=== PATIENT | female | born 1950 | race Caucasian/White ===

== ENCOUNTER → 2017-01-22 | Outpatient (REF) | payer MEDICARE, OTHER ==
[2017-01-22 13:19] LABS: ALBUMIN 4.1 GM/DL (3.2-5.2); ALBUMIN/GLOBULIN RATIO 1.37 (1.00-1.93); CALCIUM LEVEL 9.2 MG/DL (8.8-10.2); CREATININE FOR GFR 0.99 MG/DL (0.55-1.02); GLOMERULAR FILTRATION RATE 59.7 (>45); POTASSIUM SERUM 4.4 MEQ/L (3.5-5.1); TOTAL PROTEIN 7.1 GM/DL (6.4-8.2)
== END ==
LOC: M SFHCPLAZ 11:17
PROVIDERS: ATTEND Family Medicine
DX: E55.9 Vitamin D deficiency, unspecified (principal); R73.01 Impaired fasting glucose; E78.5 Hyperlipidemia, unspecified

== ENCOUNTER → 2017-02-03 | Outpatient (CLI) | payer MEDICARE, OTHER ==
--- NOTE | 2017-02-05 06:00 | SLEEPHOME ---
DATE OF PROCEDURE: 02/03/2017 ORDERED BY: Nazario Mccormick MD Diagnostic home sleep testing was performed due to concern for the obstructive sleep apnea syndrome. 10 hours and 59 minutes of data were reviewed. There were 9 hours and 58 minutes were marked as time in bed. During the interval marked time in bed, there were 33 respiratory events identified of 10 seconds in duration or greater for a respiratory event index of 3.3. The events were primarily obstructive, but mixed and central apneas were also identified. Baseline heart rate 64 beats per minute. Pulse rate ranged 55-100. Baseline saturation 92%, lowest oxygen saturation 88%. Testing was performed in both the supine and non-supine positions. Respiratory events were much more commonly seen in the supine posture. IMPRESSION: Mildly abnormal home sleep testing with repetitive respiratory events, oxygen saturations to 88% and a respiratory event index of 3.3 is suggestive of obstructive sleep apnea syndrome. RECOMMENDATION: The frequency of events is not high and the events are associated with the supine posture. Therefore, sleep position retraining for avoidance of the supine posture is recommended. If the patient's symptoms persist, repeat testing has been shown more sensitive to identify mild disease and in laboratory nocturnal polysomnography is certainly more sensitive.
== END ==
LOC: M SLEEP HO 10:39
PROVIDERS: ATTEND Family Medicine
DX: G47.33 Obstructive sleep apnea (adult) (pediatric) (principal)

== ENCOUNTER → 2017-03-26 | Outpatient (CLI) | payer MEDICARE, OTHER ==
--- NOTE | 2017-03-29 08:25 | SLEEPCENT ---
DATE OF PROCEDURE: 03/26/2017 REQUESTING PROVIDER: Shalini Chung NP INTERPRETATION: Nocturnal polysomnography was performed for evaluation of sleep physiology in this patient with a history of excessive somnolence and nonrestorative sleep who had undergone home testing with equivocal results. 8 hours and 4 minutes of data were reviewed. There were 364 minutes of sleep identified. Sleep latency was prolonged at 34 minutes. Rapid eye movement (REM) latency was prolonged at 110 minutes. Sleep architecture was somewhat fragmented. There were two REM periods appreciated. Periods of wake through the night resulted in a reduced sleep efficiency at 76.9%. Electrocardiogram (EKG) showed a sinus rhythm with an average heart rate of 65 beats per minute. Electroencephalogram (EEG) showed essentially normal waveforms for awake and sleep stages. There were only 14 respiratory events identified of 10 seconds in duration or greater for an apnea-hypopnea index of 2.3. The events were hypopneic and associated with the supine posture. There was some snoring noted. Respiratory related arousals occurred only 1.3 times per hour when arousals from snoring were included. There was some limb activity identified. Three trains of 30 events were seen, but arousal index from limbs was 4.1 per hour. IMPRESSION: Mild periodic limb movement disorder (G47.61). Index of 4.1. RECOMMENDATIONS: On review of the patient's study, the most significant disruptor of sleep appeared to be her limb activity. Therefore, interventions to reduce the frequency of arousals from limb activity should improve the quality of the patient's sleep.
== END ==
LOC: M SLEEP 19:20
PROVIDERS: ATTEND Nurse Practitioner Adult Health
DX: G47.30 Sleep apnea, unspecified (principal)

== ENCOUNTER → 2017-05-26 | Outpatient (CLI) | payer MEDICARE, OTHER ==
--- NOTE | 2017-05-26 13:23 | REPMRS ---
Patient History The patient states she has not had a clinical breast exam in over a year. Patient is postmenopausal. No known family history of cancer. Took estrogen for 10 years. Digital Woman Screen Mammo: May 26, 2017 - Exam #: [id number] Bilateral CC and MLO view(s) were taken. Technologist: Alma Delia Araujo, Technologist Prior study comparison: June 04, 2016, digital woman screen mammo performed at [facility]. May 21, 2015, digital woman screen mammo performed at [facility]. April 18, 2014, digital woman screen mammo performed at [facility]. FINDINGS: There are scattered fibroglandular densities. There has been no change in the appearance of the mammogram from the prior studies. There is a mild amount of scattered fibroglandular density which is fairly symmetric. There is no interval development of dominant mass, architectural distortion, or clustered microcalcification suggestive of malignancy. ASSESSMENT: BI-RADS/ACR category 1 mammogram. Negative. Recommendation Routine screening mammogram in 1 year (for women over age 40). This mammogram was interpreted with the aid of an FDA-approved computer-aided dectection system. Electronically Signed By: Joshua Agee MD 05/26/17 [id number]
== END ==
LOC: M WHC 11:03
PROVIDERS: ATTEND Family Medicine
DX: Z12.31 Encounter for screening mammogram for malignant neoplasm of breast (principal)

== ENCOUNTER → 2017-06-29 | Outpatient (REF) | payer MEDICARE, OTHER ==
[2017-06-29 12:38] LABS: BASO % 0.5 % (0.0-1.0); EOS # 0.1 K/mm3 (0.0-0.50); EOS % 1.7 % (0.0-3.0); LARGE UNSTAINED CELL # 0.1 K/mm3 (0.0-0.4); LARGE UNSTAINED CELL % 1.7 % (0.0-4.0); LYMPH # 1.3 K/mm3 (1.5-4.5); LYMPH % 26.1 % (24.0-44.0); MEAN CORPUSCULAR HEMOGLOBIN 32.7 pg (27.0-33.0); MEAN CORPUSCULAR VOLUME 93.3 fl (80.0-96.0); MONO # 0.2 K/mm3 (0.0-0.8); MONO % 4.7 % (0.0-5.0); NEUTROPHILS # 3.1 K/mm3 (1.8-7.7); NEUTROPHILS % 65.2 % (36.0-66.0); PLATELET COUNT, AUTOMATED 207 k/mm3 (150-450); RED CELL DISTRIBUTION WIDTH 12.4 % (11.5-14.5); WHITE BLOOD COUNT 4.8 K/mm3 (4.0-10.0)
[2017-06-29 13:23] LABS: ALBUMIN 4.3 GM/DL (3.2-5.2); ALBUMIN/GLOBULIN RATIO 1.48 (1.00-1.93); ALKALINE PHOSPHATASE 82 U/L (45-117); ALT/SGPT 37 U/L (12-78); ANION GAP 9 MEQ/L (8-16); AST/SGOT 19 U/L (15-37); BILIRUBIN,TOTAL 1.1 MG/DL (0.2-1.0); BLOOD UREA NITROGEN 15 MG/DL (7-18); CALCIUM LEVEL 8.6 MG/DL (8.8-10.2); CARBON DIOXIDE LEVEL 29 MEQ/L (21-32); CHLORIDE LEVEL 103 MEQ/L (98-107); CREATININE FOR GFR 0.87 MG/DL (0.55-1.02); FERRITIN 40 NG/ML (8-252); FREE T4 0.99 NG/DL (0.76-1.46); GLOMERULAR FILTRATION RATE > 60.0 (>45); GLUCOSE, FASTING 94 MG/DL (80-110); PERCENT SATURATION 22.4 % (13.2-45.0); POTASSIUM SERUM 4.3 MEQ/L (3.5-5.1); SODIUM LEVEL 141 MEQ/L (136-145); TOTAL IRON BINDING CAPACITY 392 UG/DL (250-450); TOTAL PROTEIN 7.2 GM/DL (6.4-8.2)
[2017-06-29 14:08] LABS: VITAMIN B12 LEVEL 711 PG/ML (247-911)
== END ==
LOC: M SFHCPLAZ 11:00
PROVIDERS: ATTEND Family Medicine
DX: N18.3 Chronic kidney disease, stage 3 (moderate) (principal); R73.01 Impaired fasting glucose; E04.2 Nontoxic multinodular goiter

== ENCOUNTER → 2017-12-02 | Outpatient (REF) | payer MEDICARE, OTHER ==
[2017-12-02 13:55] LABS: ALBUMIN 4.3 GM/DL (3.2-5.2); ALBUMIN/GLOBULIN RATIO 1.59 (1.00-1.93); ALKALINE PHOSPHATASE 78 U/L (45-117); ALT/SGPT 30 U/L (12-78); ANION GAP 6 MEQ/L (8-16); AST/SGOT 19 U/L (7-37); BILIRUBIN,TOTAL 0.8 MG/DL (0.2-1.0); BLOOD UREA NITROGEN 13 MG/DL (7-18); CARBON DIOXIDE LEVEL 31 MEQ/L (21-32); CHLORIDE LEVEL 104 MEQ/L (98-107); CHOLESTEROL LEVEL 103 MG/DL (<200); CHOLESTEROL RISK RATIO 1.872 (<5); CPK CREATINE PHOSPHOKINASE 147 U/L (26-192); CREATININE FOR GFR 0.83 MG/DL (0.55-1.02); GLOMERULAR FILTRATION RATE > 60.0 (>45); GLUCOSE, FASTING 91 MG/DL (70-100); HDL CHOLESTEROL 55 MG/DL (>40); LDL CHOLESTEROL 31.2 MG/DL (<100); NON-HDL-C 48 MG/DL; POTASSIUM SERUM 4.4 MEQ/L (3.5-5.1); SODIUM LEVEL 141 MEQ/L (136-145); TRIGLYCERIDES LEVEL 84 MG/DL (<150)
[2017-12-02 13:56] LABS: C REACTIVE PROTEIN QUANTITATIV < 0.30 MG/DL (0.00-0.30)
[2017-12-02 14:15] LABS: ESTIMATED AVERAGE GLUCOSE 120 MG/DL (60-110); HEMOGLOBIN A1c 5.8 %
[2017-12-02 15:13] LABS: APPEARANCE, URINE CLEAR (CLEAR); BACTERIA, URINE AUTO NEGATIVE (NEGATIVE); BILIRUBIN, URINE AUTO NEGATIVE (NEGATIVE); BLOOD, URINE BLOOD NEGATIVE (NEGATIVE); COLOR, URINE YELLOW (YELLOW); GLUCOSE, URINE (UA) AUTO NEGATIVE (NEGATIVE); KETONE, URINE AUTO NEGATIVE (NEGATIVE); LEUKOCYTE ESTERASE, URINE AUTO NEGATIVE (NEGATIVE); MALB URINE SIEMENS 5.8 MG/L; MAU/CREAT RATIO 4.7 MCG/MG (0.0-30.0); NITRITE, URINE AUTO NEGATIVE (NEGATIVE); PROTEIN, URINE AUTO NEGATIVE (NEGATIVE); RBC, URINE AUTO 3 /HPF (0-3); SPECIFIC GRAVITY URINE AUTO 1.015 (1.002-1.035); SQUAMOUS EPITHELIAL CELL UR AU 0 /HPF (0-6); UROBILINOGEN, URINE AUTO 0.2 mg/dL (0.0-2.0); WBC, URINE AUTO 1 /HPF (0-3)
== END ==
LOC: M SFHCADAM 11:03
DX: E78.5 Hyperlipidemia, unspecified (principal); R73.01 Impaired fasting glucose
CPT/HCPCS: 82550

== ENCOUNTER → 2018-04-30 | Outpatient (REF) | payer MEDICARE, OTHER ==
[2018-04-30 14:25] LABS: ESTIMATED AVERAGE GLUCOSE 120 MG/DL (60-110); HEMOGLOBIN A1c 5.8 %
[2018-04-30 14:31] LABS: ALBUMIN 4.1 GM/DL (3.2-5.2); ALBUMIN/GLOBULIN RATIO 1.28 (1.00-1.93); ALKALINE PHOSPHATASE 74 U/L (45-117); ALT/SGPT 35 U/L (12-78); ANION GAP 9 MEQ/L (8-16); AST/SGOT 20 U/L (7-37); BILIRUBIN,TOTAL 1.1 MG/DL (0.2-1.0); BLOOD UREA NITROGEN 15 MG/DL (7-18); CALCIUM LEVEL 8.7 MG/DL (8.8-10.2); CARBON DIOXIDE LEVEL 29 MEQ/L (21-32); CHLORIDE LEVEL 105 MEQ/L (98-107); CREATININE FOR GFR 0.92 MG/DL (0.55-1.30); GLOMERULAR FILTRATION RATE > 60.0 (>45); GLUCOSE, FASTING 93 MG/DL (70-100); POTASSIUM SERUM 4.2 MEQ/L (3.5-5.1); PTH INTACT 41.2 PG/ML (18.5-88.0); SODIUM LEVEL 143 MEQ/L (136-145); TOTAL 25(OH) VITAMIN D 30.9 NG/ML (30.0-100.0); TOTAL PROTEIN 7.3 GM/DL (6.4-8.2)
[2018-04-30 15:31] LABS: BASO % 0.7 % (0.0-1.0); EOS # 0.1 10^3/uL (0.0-0.50); EOS % 3.2 % (0.0-3.0); HEMATOCRIT 39.4 % (36.0-47.0); HEMOGLOBIN 13.6 g/dl (12.0-15.5); LYMPH # 1.4 10^3/uL (1.5-4.5); LYMPH % 31.9 % (24.0-44.0); MEAN CORPUSCULAR HEMOGLOBIN 31.8 pg (27.0-33.0); MEAN CORPUSCULAR HGB CONC 34.5 g/dl (32.0-36.5); MEAN CORPUSCULAR VOLUME 92.1 fl (80.0-96.0); MONO # 0.3 10^3/uL (0.0-0.8); MONO % 6.7 % (0.0-5.0); NEUTROPHILS # 2.5 10^3/uL (1.8-7.7); NEUTROPHILS % 57.5 % (36.0-66.0); PLATELET COUNT, AUTOMATED 202 10^3/uL (150-450); RED BLOOD COUNT 4.28 10^6/uL (4.00-5.40); WHITE BLOOD COUNT 4.3 10^3/uL (4.0-10.0)
[2018-05-01 15:28] LABS: INSULIN LEVEL 12.6 uIU/mL (2.6-24.9)
== END ==
LOC: M LABDRWAD 13:36
DX: N18.3 Chronic kidney disease, stage 3 (moderate) (principal); R73.01 Impaired fasting glucose
CPT/HCPCS: 83525

== ENCOUNTER → 2018-05-14 | Outpatient (CLI) | payer MEDICARE, OTHER ==
[~2018-05-14] MED LIST: ISOVUE-370 76% 100ML VIAL (Q9967) As Ordered
== END ==
LOC: M RAD 15:35
DX: E04.2 Nontoxic multinodular goiter (principal); R68.89 Other general symptoms and signs
CPT/HCPCS: Q9967

== ENCOUNTER → 2018-05-27 | Outpatient (CLI) | payer MEDICARE, OTHER ==
[~2018-05-27] MED LIST changes: +E-Z-GAS II EFFERVESCENT PACKET (SODIUM BICARB./CITRIC ACID/SIMETHICONE) As Ordered; +E-Z-HD 98% w/w 340GM SUSP BTL As Ordered; +E-Z-PAQUE 96% w/w SUSP 176GM BTL As Ordered; -ISOVUE-370 76% 100ML VIAL (Q9967) As Ordered
== END ==
LOC: M RAD 07:28
DX: R68.89 Other general symptoms and signs (principal); K44.9 Diaphragmatic hernia without obstruction or gangrene; K21.9 Gastro-esophageal reflux disease without esophagitis
CPT/HCPCS: 74241

== ENCOUNTER → 2018-05-31 | Outpatient (CLI) | payer MEDICARE, OTHER | LOC: M WHC 14:52 | DX: Z12.31 Encounter for screening mammogram for malignant neoplasm of breast (principal) | CPT/HCPCS: 77067 ==

== ENCOUNTER → 2018-09-20 | Outpatient (REF) | payer MEDICARE, OTHER ==
[2018-09-20 14:41] LABS: ALBUMIN/GLOBULIN RATIO 1.25 (1.00-1.93); ALKALINE PHOSPHATASE 86 U/L (45-117); ALT/SGPT 34 U/L (12-78); ANION GAP 11 MEQ/L (8-16); AST/SGOT 21 U/L (7-37); BLOOD UREA NITROGEN 12 MG/DL (7-18); CALCIUM LEVEL 8.8 MG/DL (8.8-10.2); CARBON DIOXIDE LEVEL 25 MEQ/L (21-32); CHLORIDE LEVEL 104 MEQ/L (98-107); CREATININE FOR GFR 1.01 MG/DL (0.55-1.30); GLUCOSE, FASTING 94 MG/DL (70-100); IMMUNOGLOBULIN E 19.2 IU/ML (<100); POTASSIUM SERUM 4.1 MEQ/L (3.5-5.1); SODIUM LEVEL 140 MEQ/L (136-145); TOTAL PROTEIN 7.2 GM/DL (6.4-8.2)
[2018-09-20 15:03] LABS: ESTIMATED AVERAGE GLUCOSE 117 MG/DL (60-110); HEMOGLOBIN A1c 5.7 %
[2018-09-23 14:22] LABS: INSULIN LEVEL 14.2 uIU/mL (2.6-24.9)
[2018-09-23 14:22] LABS: D001-IgE D pteronyssinus <0.10 kU/L (Class 0); E001-IgE Cat Epith/Dander < 0.10 kU/L (Class 0); E005-IgE Dog Dander < 0.10 kU/L (Class 0); G002-IgE Bermuda Grass < 0.10 kU/L (Class 0); G008-IgE Kentucky Bluegrass < 0.10 kU/L (Class 0); M001-IgE Penicillium chrysogen < 0.10 kU/L (Class 0); M002 IgE Cladosporium herbaru < 0.10 kU/L (Class 0); M003 IgE Aspergillus fumigatu < 0.10 kU/L (Class 0); M006-IgE Alternaria alternata < 0.10 kU/L (Class 0); T001-IgE Maple/Box Elder < 0.10 kU/L (Class 0); T003-IgE Common Silver Birch < 0.10 kU/L (Class 0); T006-IgE Cedar, Mountain < 0.10 kU/L (Class 0); T007-IgE Oak, White < 0.10 kU/L (Class 0); T008-IgE Elm, American < 0.10 kU/L (Class 0); T015-IgE Ash, White < 0.10 kU/L (Class 0); T041-IgE Hickory, White < 0.10 kU/L (Class 0); T070-IgE White Mulberry < 0.10 kU/L (Class 0); W001-IgE Ragweed, Short < 0.10 kU/L (Class 0); W009-IgE Plantain, English < 0.10 kU/L (Class 0); W014-IgE Pigweed, Rough < 0.10 kU/L (Class 0); W018-IgE Sheep Sorrel < 0.10 kU/L (Class 0)
== END ==
LOC: M SFHCADAM 09:41
DX: R73.01 Impaired fasting glucose (principal); R68.89 Other general symptoms and signs; R53.82 Chronic fatigue, unspecified; G47.61 Periodic limb movement disorder; L57.0 Actinic keratosis; N18.3 Chronic kidney disease, stage 3 (moderate); K21.9 Gastro-esophageal reflux disease without esophagitis; I25.10 Atherosclerotic heart disease of native coronary artery without angina pectoris; E78.5 Hyperlipidemia, unspecified; E42 Marasmic kwashiorkor; F32.9 Major depressive disorder, single episode, unspecified; L30.9 Dermatitis, unspecified; E55.9 Vitamin D deficiency, unspecified; E66.3 Overweight; Z91.09 Other allergy status, other than to drugs and biological substances; Z23 Encounter for immunization
CPT/HCPCS: 82785

== ENCOUNTER → 2018-12-16 | Outpatient (REF) | payer MEDICARE, OTHER ==
[2018-12-16 20:04] LABS: BASO % 0.4 % (0.0-1.0); EOS # 0.1 10^3/uL (0.0-0.50); EOS % 2.4 % (0.0-3.0); HEMATOCRIT 40.9 % (36.0-47.0); HEMOGLOBIN 13.6 g/dl (12.0-15.5); LYMPH # 1.5 10^3/uL (1.5-4.5); LYMPH % 30.3 % (24.0-44.0); MEAN CORPUSCULAR HEMOGLOBIN 31.3 pg (27.0-33.0); MEAN CORPUSCULAR HGB CONC 33.3 g/dl (32.0-36.5); MONO # 0.4 10^3/uL (0.0-0.8); MONO % 7.8 % (0.0-5.0); NEUTROPHILS % 58.9 % (36.0-66.0); PLATELET COUNT, AUTOMATED 208 10^3/uL (150-450); RED BLOOD COUNT 4.35 10^6/uL (4.00-5.40)
[2018-12-16 20:17] LABS: FREE T4 0.86 NG/DL (0.76-1.46); THYROID STIMULATING HORMONE 1.97 uIU/ML (0.358-3.740)
== END ==
LOC: M SFHCADAM 11:12
PROVIDERS: ATTEND Family Medicine
DX: I25.10 Atherosclerotic heart disease of native coronary artery without angina pectoris (principal); F32.9 Major depressive disorder, single episode, unspecified
CPT/HCPCS: 84439; 84443; 85025; G0463

== ENCOUNTER → 2019-01-17 | Outpatient (CLI) | payer MEDICARE, OTHER ==
--- NOTE | 2019-01-17 13:03 | REP ---
Bladder ultrasound including pre and post void bladder volumes: The pre void bladder volume is 273 ml. The postvoid bladder volume is zero. Post void residual is 0%. No bladder wall polyps or masses are identified. Impression: Essentially negative bladder ultrasound. Electronically Signed by John You MD 01/17/2019 12:55 P
== END ==
LOC: M RAD 12:04
PROVIDERS: ATTEND Family Medicine
DX: R32 Unspecified urinary incontinence (principal)

== ENCOUNTER → 2019-02-21 | Outpatient (REF) | payer MEDICARE, OTHER ==
[~2019-02-21] MED LIST changes: +ASPI81TA85 PO; +CALCTAB38 PO; -E-Z-GAS II EFFERVESCENT PACKET (SODIUM BICARB./CITRIC ACID/SIMETHICONE) As Ordered; -E-Z-HD 98% w/w 340GM SUSP BTL As Ordered; -E-Z-PAQUE 96% w/w SUSP 176GM BTL As Ordered; +LIPI20TA PO; +MIRA0.254 PO; +MULTCAP PO; +PROTPAK PO; +PROZ40CA PO
[2019-02-21 20:42] LABS: ALBUMIN 4.4 GM/DL (3.2-5.2); ALT/SGPT 35 U/L (12-78); BILIRUBIN,TOTAL 1.1 MG/DL (0.2-1.0); BLOOD UREA NITROGEN 16 MG/DL (7-18); CALCIUM LEVEL 9.3 MG/DL (8.8-10.2); CARBON DIOXIDE LEVEL 28 MEQ/L (21-32); CHLORIDE LEVEL 104 MEQ/L (98-107); CREATININE FOR GFR 0.97 MG/DL (0.55-1.30); GLOMERULAR FILTRATION RATE > 60.0 (>45); GLUCOSE, FASTING 90 MG/DL (70-100); POTASSIUM SERUM 4.8 MEQ/L (3.5-5.1); SODIUM LEVEL 138 MEQ/L (136-145); TOTAL PROTEIN 7.1 GM/DL (6.4-8.2)
== END ==
LOC: M SFHCADAM 13:28
PROVIDERS: ATTEND Family Medicine
DX: Z01.810 Encounter for preprocedural cardiovascular examination (principal); K21.9 Gastro-esophageal reflux disease without esophagitis
CPT/HCPCS: 80053; 93005; G0463

== ENCOUNTER 2019-03-02 09:14 | Day surgery (SDC) | payer MEDICARE, OTHER ==
[~2019-03-02] VITALS: Ht 170.2 cm; Wt 83.9 kg
[~2019-03-02 09:14] MED LIST changes: +LIDOCAINE 2% INJ 100 MG/5 ML SDV (FOR ANES.) As Ordered ONE; +NS 1,000 ML IV ONE; +PROPOFOL 200 MG/20 ML VIAL As Ordered ONE
[2019-03-02] MEDS ORDERED: PROPOFOL 200 MG/20 ML VIAL As Ordered ONE ×2 (09:36→11:33)
--- NOTE | 2019-03-02 11:56 | ROOR ---
Patient Name: Whitney Rizvi Procedure Date: 03/02/2019 11:07 AM Date of : 1950 Age: 68 Room: [facility] Gender: Female Note Status: Finalized Procedure: Upper GI endoscopy Indications: Heartburn Providers: Umesh Fregoso MD Referring MD: Merissa FUNK DO Requesting Provider: Medicines: Monitored Anesthesia Care Complications: No immediate complications. Procedure: Pre-Anesthesia Assessment: - Prior to the procedure, a History and Physical was performed, and patient medications and allergies were reviewed. The patient is competent. The risks and benefits of the procedure and the sedation options and risks were discussed with the patient. All questions were answered and informed consent was obtained. Patient identification and proposed procedure were verified by the physician, the nurse and the anesthesiologist in the endoscopy suite. Mental Status Examination: alert and oriented. Airway Examination: normal oropharyngeal airway and neck mobility. Respiratory Examination: clear to auscultation. CV Examination: normal. Prophylactic Antibiotics: The patient does not require prophylactic antibiotics. Prior Anticoagulants: The patient has taken aspirin, last dose was day of procedure. ASA Grade Assessment: III - A patient with severe systemic disease. After reviewing the risks and benefits, the patient was deemed in satisfactory condition to undergo the procedure. The anesthesia plan was to use monitored anesthesia care (MAC). Immediately prior to administration of medications, the patient was re-assessed for adequacy to receive sedatives. The heart rate, respiratory rate, oxygen saturations, blood pressure, adequacy of pulmonary ventilation, and response to care were monitored throughout the procedure. The physical status of the patient was re-assessed after the procedure. The Endoscope was introduced through the mouth, and advanced to the second part of duodenum. The upper GI endoscopy was accomplished without difficulty. The patient tolerated the procedure well. Findings: The Z-line was regular and was found 37 cm from the incisors. Multiple 2 to 8 mm pedunculated polyps with no bleeding and no stigmata of recent bleeding were found in the gastric fundus and in the gastric body. The polyp was removed with a cold snare. Resection and retrieval were complete. Estimated blood loss was minimal. The examined duodenum was normal. Impression: - Z-line regular, 37 cm from the incisors. - Multiple gastric polyps. Resected and retrieved. - Normal examined duodenum. Recommendation: - Discharge patient to home (ambulatory). - Continue present medications. - Await pathology results. - Telephone my office for pathology results in 1 week. Umesh Fregoso MD Umesh Fregoso MD 03/02/2019 11:56:20 AM Electronically signed by Umesh Fregoso MD Number of Addenda: 0 Note Initiated On: 03/02/2019 11:07 AM Estimated Blood Loss: Estimated blood loss was minimal.
--- NOTE | 2019-03-02 12:00 | ROOR ---
Patient Name: Whitney Rizvi Procedure Date: 03/02/2019 11:08 AM Date of : 1950 Age: 68 Room: [facility] Gender: Female Note Status: Finalized Procedure: Colonoscopy Indications: High risk colon cancer surveillance: Personal history of colonic polyps Providers: Umesh Fregoso MD Referring MD: Merissa FUNK DO [place]ino Provider: Medicines: Monitored Anesthesia Care Complications: No immediate complications. Procedure: Pre-Anesthesia Assessment: - Prior to the procedure, a History and Physical was performed, and patient medications and allergies were reviewed. The patient is competent. The risks and benefits of the procedure and the sedation options and risks were discussed with the patient. All questions were answered and informed consent was obtained. Patient identification and proposed procedure were verified by the physician, the nurse and the anesthesiologist in the endoscopy suite. Mental Status Examination: alert and oriented. Airway Examination: normal oropharyngeal airway and neck mobility. Respiratory Examination: clear to auscultation. CV Examination: normal. Prophylactic Antibiotics: The patient does not require prophylactic antibiotics. Prior Anticoagulants: The patient has taken aspirin, last dose was day of procedure. ASA Grade Assessment: III - A patient with severe systemic disease. After reviewing the risks and benefits, the patient was deemed in satisfactory condition to undergo the procedure. The anesthesia plan was to use monitored anesthesia care (MAC). Immediately prior to administration of medications, the patient was re-assessed for adequacy to receive sedatives. The heart rate, respiratory rate, oxygen saturations, blood pressure, adequacy of pulmonary ventilation, and response to care were monitored throughout the procedure. The physical status of the patient was re-assessed after the procedure. The Colonoscope was introduced through the anus and advanced to the cecum, identified by appendiceal orifice and ileocecal valve. The colonoscopy was performed without difficulty. The patient tolerated the procedure well. The quality of the bowel preparation was good. Findings: Hemorrhoids were found on perianal exam. A small polyp was found in the ascending colon. The polyp was pedunculated. The polyp was removed with a cold snare. Resection and retrieval were complete. Estimated blood loss was minimal. The entire examined colon appeared normal. No additional abnormalities were found on retroflexion. Impression: - Hemorrhoids found on perianal exam. - One small polyp in the ascending colon, removed with a cold snare. Resected and retrieved. - The entire examined colon is normal. Recommendation: - Discharge patient to home (ambulatory). - Telephone my office for pathology results in 1 week. - Repeat colonoscopy in 5 years for surveillance. Umesh Fregoso MD Umesh Fregoso MD 03/02/2019 12:00:05 PM Electronically signed by Umesh Fregoso MD Number of Addenda: 0 Note Initiated On: 03/02/2019 11:08 AM Estimated Blood Loss: Estimated blood loss: none.
[2019-03-02 12:10] VITALS: BP 130/58
== END 2019-03-02 12:21 | disposition home or self-care (01) ==
LOC: M OPP 09:14
PROVIDERS: ATTEND Surgery
DX: K63.5 Polyp of colon (principal); K64.9 Unspecified hemorrhoids; R12 Heartburn; K31.7 Polyp of stomach and duodenum; Z86.010 Personal history of colon polyps

== ENCOUNTER → 2019-06-21 | Outpatient (CLI) | payer MEDICARE, OTHER ==
[~2019-06-21] MED LIST changes: -LIDOCAINE 2% INJ 100 MG/5 ML SDV (FOR ANES.) As Ordered ONE; -NS 1,000 ML IV ONE; -PROPOFOL 200 MG/20 ML VIAL As Ordered ONE
--- NOTE | 2019-06-22 09:15 | REP ---
RIGHT ANKLE COMPLETE: 06/21/2019. Clinical history: Right ankle pain, trauma. Findings: Four views are provided. There is prominent soft tissue swelling over the anterolateral aspect of the ankle and oblique fracture of the distal fibula extending to the lateral corner of the ankle mortise joint. The distal major fragment is displaced laterally about 3 mm. Appears to be a small avulsion of the distal tip of the medial malleolus. No widening of the mortise joint superiorly or medially. No talar dome osteochondral defect. The tibial plafond was intact. Subtalar joints intact. No heel spurs. Talonavicular, calcaneocuboid joints are normal. Tarsal bones intact. There is a screw in the shaft of the fifth metatarsal. Impression: 1. Mildly displaced distal fibular fracture extending to the intra-articular aspect of the mortise joint at the lateral talar dome. The major distal fragment is distracted is displaced about 3 mm. There is diffuse anterolateral soft tissue swelling. 2. Small avulsion distal tip medial malleolus. No other significant acute finding. Electronically Signed by Tyler Valle MD 06/22/2019 11:18 A
== END ==
LOC: M ADAMS 16:45
PROVIDERS: ATTEND Physician Assistant Medical
DX: S82.61XA Displaced fracture of lateral malleolus of right fibula, initial encounter for closed fracture (principal); X58.XXXA Exposure to other specified factors, initial encounter; Y92.89 Other specified places as the place of occurrence of the external cause

== ENCOUNTER → 2019-11-21 | Outpatient (CLI) | payer MEDICARE, OTHER ==
--- NOTE | 2019-11-21 15:12 | REP ---
RIGHT HIP, TWO VIEWS: Two views right hip performed. No acute fracture or dislocation is seen. There is mild arthritic change in the form of very mild joint space narrowing and subchondral sclerosis. IMPRESSION: Mild arthritic changes. Electronically Signed by John Buchanan MD 11/21/2019 06:08 P
== END ==
LOC: M ADAMS 12:33
PROVIDERS: ATTEND Family Medicine
DX: M16.11 Unilateral primary osteoarthritis, right hip (principal); M25.551 Pain in right hip

== ENCOUNTER → 2019-12-06 | Outpatient (CLI) | payer MEDICARE, OTHER ==
--- NOTE | 2019-12-06 14:46 | REP ---
Bladder ultrasound for urinary incontinence: The distended urinary bladder contains 188 milliliters of fluid. The postvoid bladder is completely empty with 0 ml of fluid. There is no postvoid residual. No bladder wall nodules, polyps or masses are identified. Electronically Signed by John You MD 12/06/2019 02:38 P
== END ==
LOC: M RAD 13:05
PROVIDERS: ATTEND Family Medicine
DX: R32 Unspecified urinary incontinence (principal)

== ENCOUNTER → 2019-12-20 | Outpatient (CLI) | payer MEDICARE, OTHER ==
[2019-12-20 12:36] LABS: BASO % 0.5 % (0.0-1.0); EOS # 0.1 10^3/uL (0.0-0.5); EOS % 1.9 % (0.0-3.0); HEMATOCRIT 44.2 % (36.0-47.0); HEMOGLOBIN 14.4 g/dl (12.0-15.5); LYMPH # 1.3 10^3/uL (1.5-5.0); LYMPH % 20.7 % (24.0-44.0); MEAN CORPUSCULAR HEMOGLOBIN 31.2 pg (27.0-33.0); MEAN CORPUSCULAR HGB CONC 32.6 g/dl (32.0-36.5); MEAN CORPUSCULAR VOLUME 95.7 fl (80.0-96.0); MONO # 0.3 10^3/uL (0.0-0.8); MONO % 5.2 % (0.0-5.0); NEUTROPHILS # 4.4 10^3/uL (1.5-8.5); NEUTROPHILS % 71.2 % (36.0-66.0); PLATELET COUNT, AUTOMATED 218 10^3/uL (150-450); RED BLOOD COUNT 4.62 10^6/uL (4.00-5.40); WHITE BLOOD COUNT 6.2 10^3/uL (4.0-10.0)
[2019-12-20 13:01] LABS: ALBUMIN 4.3 GM/DL (3.2-5.2); ALT/SGPT 34 U/L (12-78); BILIRUBIN,TOTAL 0.9 MG/DL (0.2-1.0); BLOOD UREA NITROGEN 15 MG/DL (7-18); CALCIUM LEVEL 9.1 MG/DL (8.8-10.2); CARBON DIOXIDE LEVEL 28 MEQ/L (21-32); CHLORIDE LEVEL 105 MEQ/L (98-107); CHOLESTEROL LEVEL 129 MG/DL (<200); CHOLESTEROL RISK RATIO 2.345 (<5); CREATININE FOR GFR 0.94 MG/DL (0.55-1.30); FREE T4 1.09 NG/DL (0.76-1.46); GLOMERULAR FILTRATION RATE > 60.0 (>45); GLUCOSE, FASTING 105 MG/DL (70-100); HDL CHOLESTEROL 55 MG/DL (>40); LDL CHOLESTEROL 41 MG/DL (<100); NON-HDL-C 74 MG/DL; POTASSIUM SERUM 4.5 MEQ/L (3.5-5.1); SODIUM LEVEL 139 MEQ/L (136-145); TOTAL PROTEIN 7.2 GM/DL (6.4-8.2); TRIGLYCERIDES LEVEL 163 MG/DL (<150)
--- NOTE | 2019-12-20 13:37 | REPMRS ---
Patient History The patient states she has not had a clinical breast exam in over a year. No known family history of cancer. Took estrogen for 10 years. Digital Woman Screen Mammo: December 20, 2019 - Exam #: [id number] Bilateral CC and MLO view(s) were taken. Technologist: Alma Delia Araujo, Technologist Prior study comparison: May 31, 2018, bilateral digital woman screen mammo performed at [facility]. May 26, 2017, digital woman screen mammo performed at [facility]. June 04, 2016, digital woman screen mammo performed at [facility]. FINDINGS: There are scattered fibroglandular densities. There has been no change in the appearance of the mammogram from the prior studies. There is a mild amount of scattered fibroglandular density which is fairly symmetric. There is no interval development of dominant mass, architectural distortion, or grouped microcalcification suggestive of malignancy. 3-D tomosynthesis shows no additional findings. Assessment: BI-RADS/ACR category 1 mammogram. Negative Mammogram. Recommendation Routine screening mammogram of both breasts in 1 year (for women over age 40). This patient's Lifetime Breast Cancer Risk is estimated at 4.0 %. This mammogram was interpreted with the aid of an FDA-approved computer-aided dectection system. Electronically Signed By: Joshua Agee MD 12/20/19 [id number]
== END ==
LOC: M WHC 10:16
PROVIDERS: ATTEND Family Medicine
DX: Z12.31 Encounter for screening mammogram for malignant neoplasm of breast (principal); Z79.899 Other long term (current) drug therapy

== ENCOUNTER → 2021-02-15 | Outpatient (CLI) | payer MEDICARE, OTHER ==
[~2021-02-15] MED LIST changes: -ASPI81TA85 PO; +ASPI81TA86 PO; +ISOVUE-300 61% 50ML VIAL As Ordered ONE; +LIDOCAINE 1% MDV 20ML VIAL As Ordered ONE; +TRIAMCINOLONE ACETONIDE SUSP 40 MG/ML VIAL (J3301) As Ordered ONE
--- NOTE | 2021-02-15 18:53 | REP ---
INDICATION: UNILATERAL PRIMARY OSTEOARTHRITIS, RIGHT HIP. COMPARISON: None. TECHNIQUE: The procedure was performed under the direct supervision of Dr. Buchanan. The benefits and risks including but not limited to pain infection and bleeding and anaphylaxis were explained to the patient and informed consent was obtained. The right femoral neck was localized using fluoroscopic guidance. The skin was prepped and draped in a sterile fashion. 1% lidocaine was used as a local anesthetic. Using fluoroscopic guidance a 22-gauge spinal needle was inserted and advanced to the femoral neck. 0.5 ml of Isovue-300 was injected to verify placement. 6 ml of a solution containing 5 ml of 1% Xylocaine and 1 ml of Kenalog 40 mg was injected. The needle was then removed. The patient tolerated the procedure well and there were no immediate complications. Less than 6 seconds of fluoro time was utilized for this procedure. FINDINGS: None IMPRESSION: Fluoro guidance for right hip injection. <Electronically signed by Ayo Us > 02/15/21 [id number] <Electronically signed by John Buchanan > 02/15/21 [id number]
== END ==
LOC: M RADPRO 10:26
PROVIDERS: ATTEND Orthopaedic Surgery
DX: M16.11 Unilateral primary osteoarthritis, right hip (principal)
CPT/HCPCS: 20610; 77002; J3301; Q9967

== ENCOUNTER → 2021-02-27 | Outpatient (REF) | payer MEDICARE, OTHER ==
[~2021-02-27] MED LIST changes: -ISOVUE-300 61% 50ML VIAL As Ordered ONE; -LIDOCAINE 1% MDV 20ML VIAL As Ordered ONE; -TRIAMCINOLONE ACETONIDE SUSP 40 MG/ML VIAL (J3301) As Ordered ONE
[2021-02-28 12:45] LABS: BASO % 0.4 % (0.0-1.0); EOS # 0.1 10^3/uL (0.0-0.5); EOS % 1.6 % (0.0-3.0); HEMATOCRIT 41.5 % (36.0-47.0); HEMOGLOBIN 13.5 g/dl (12.0-15.5); LYMPH # 1.8 10^3/uL (1.5-5.0); LYMPH % 21.8 % (24.0-44.0); MEAN CORPUSCULAR HEMOGLOBIN 31.2 pg (27.0-33.0); MEAN CORPUSCULAR HGB CONC 32.5 g/dl (32.0-36.5); MEAN CORPUSCULAR VOLUME 95.8 fl (80.0-96.0); MONO # 0.6 10^3/uL (0.0-0.8); MONO % 6.8 % (2.0-8.0); NEUTROPHILS # 5.7 10^3/uL (1.5-8.5); NEUTROPHILS % 69.2 % (36.0-66.0); PLATELET COUNT, AUTOMATED 218 10^3/uL (150-450); RED BLOOD COUNT 4.33 10^6/uL (4.00-5.40); WHITE BLOOD COUNT 8.2 10^3/uL (4.0-10.0)
[2021-02-28 13:14] LABS: ALBUMIN 4.1 GM/DL (3.2-5.2); ALT/SGPT 32 U/L (12-78); BILIRUBIN,TOTAL 0.8 MG/DL (0.2-1.0); BLOOD UREA NITROGEN 12 MG/DL (7-18); CALCIUM LEVEL 9.4 MG/DL (8.8-10.2); CARBON DIOXIDE LEVEL 29 MEQ/L (21-32); CHLORIDE LEVEL 106 MEQ/L (98-107); CREATININE FOR GFR 0.81 MG/DL (0.55-1.30); FREE T4 1.04 NG/DL (0.76-1.46); GLOMERULAR FILTRATION RATE > 60.0 (>39); GLUCOSE, FASTING 87 MG/DL (70-100); POTASSIUM SERUM 5.4 MEQ/L (3.5-5.1); SODIUM LEVEL 140 MEQ/L (136-145); TOTAL PROTEIN 7.3 GM/DL (6.4-8.2)
== END ==
LOC: M SFHCADAM 15:35
PROVIDERS: ATTEND Family Medicine
DX: K52.9 Noninfective gastroenteritis and colitis, unspecified (principal); Z79.899 Other long term (current) drug therapy
CPT/HCPCS: 80053; 84439; 84443; 85025; G0463

== ENCOUNTER → 2021-02-28 | Outpatient (REF) | payer MEDICARE, OTHER | LOC: M SFHCADAM 13:08 | PROVIDERS: ATTEND Family Medicine | DX: K52.9 Noninfective gastroenteritis and colitis, unspecified (principal) ==

== ENCOUNTER → 2021-03-25 | Outpatient (REF) | payer MEDICARE, OTHER ==
[2021-03-25 13:13] LABS: BLOOD UREA NITROGEN 10 MG/DL (7-18); CALCIUM LEVEL 8.8 MG/DL (8.8-10.2); CARBON DIOXIDE LEVEL 30 MEQ/L (21-32); CHLORIDE LEVEL 106 MEQ/L (98-107); GLOMERULAR FILTRATION RATE > 60.0 (>39); GLUCOSE, FASTING 93 MG/DL (70-100); POTASSIUM SERUM 4.6 MEQ/L (3.5-5.1); SODIUM LEVEL 141 MEQ/L (136-145)
== END ==
LOC: M SFHCADAM 10:15
PROVIDERS: ATTEND Family Medicine
DX: R19.7 Diarrhea, unspecified (principal)

== ENCOUNTER → 2021-03-29 | Outpatient (CLI) | payer MEDICARE, OTHER ==
[~2021-03-29] MED LIST changes: +GASTROGRAFIN SOLUTION 30ML (Q9963) As Ordered ONE; +ISOVUE-370 76% 100ML VIAL As Ordered ONE
--- NOTE | 2021-03-29 16:44 | REP ---
INDICATION: DIARRHEA. COMPARISON: None. Although there is an examination which was obtained 11/03/2005 it cannot be accessed at this time. TECHNIQUE: Standard helical technique after the intravenous administration of 100 cc Isovue 370 and oral bowel preparatory contrast administration. FINDINGS: The lung bases are clear, however, there is mild cylindrical bronchiectasis. There are no pleural or pericardial effusions. The liver, spleen, gallbladder, pancreas, adrenal glands, and kidneys are within normal limits. The gallbladder is somewhat atopic in location. The pancreas is somewhat atrophic. The abdominal aorta and para-aortic regions are within normal limits. The bowel loops and the mesenteries are within normal limits. There is no free fluid or free air. There is no evidence of a mass or adenopathy. Bone window technique throughout the examination shows the osseous structures to be within normal limits for the patient's age. There are spinal degenerative changes. IMPRESSION: There is no evidence of acute intra-abdominal or intrapelvic disease. Findings as described above. <Electronically signed by Jonnathan Platt > 03/29/21 [id number]
== END ==
LOC: M RAD 14:31
PROVIDERS: ATTEND Family Medicine
DX: R19.7 Diarrhea, unspecified (principal)
CPT/HCPCS: 74177; Q9963; Q9967

== ENCOUNTER → 2021-09-04 | Outpatient (REF) | payer MEDICARE, OTHER ==
[~2021-09-04] MED LIST changes: -GASTROGRAFIN SOLUTION 30ML (Q9963) As Ordered ONE; -ISOVUE-370 76% 100ML VIAL As Ordered ONE
[2021-09-04 12:52] LABS: BASO % 0.7 % (0.0-1.0); EOS # 0.3 10^3/uL (0.0-0.5); EOS % 4.1 % (0.0-3.0); HEMOGLOBIN 14.2 g/dl (12.0-15.5); LYMPH % 32.2 % (24.0-44.0); MEAN CORPUSCULAR HEMOGLOBIN 31.6 pg (27.0-33.0); MEAN CORPUSCULAR VOLUME 95.6 fl (80.0-96.0); MONO # 0.4 10^3/uL (0.0-0.8); NEUTROPHILS # 3.4 10^3/uL (1.5-8.5); NEUTROPHILS % 55.8 % (36.0-66.0); PLATELET COUNT, AUTOMATED 233 10^3/uL (150-450); WHITE BLOOD COUNT 6.1 10^3/uL (4.0-10.0)
[2021-09-04 13:16] LABS: ALBUMIN 4.2 GM/DL (3.2-5.2); BILIRUBIN,TOTAL 0.9 MG/DL (0.2-1.0); C REACTIVE PROTEIN QUANTITATIV 0.3 MG/DL (0.00-0.30); CALCIUM LEVEL 9.2 MG/DL (8.8-10.2); CREATININE FOR GFR 0.99 MG/DL (0.55-1.30); GLOMERULAR FILTRATION RATE 58.9 (>39); POTASSIUM SERUM 4.8 MEQ/L (3.5-5.1); TOTAL PROTEIN 7.1 GM/DL (6.4-8.2)
[2021-09-04 14:18] LABS: ERYTHROCYTE SEDIMENTATION RATE 8 mm/hr (0-30)
== END ==
LOC: M SFHCADAM 10:40
PROVIDERS: ATTEND Family Medicine
DX: R51.9 Headache, unspecified (principal)

== ENCOUNTER 2021-10-13 16:33 | Emergency (ER) | payer MEDICARE, OTHER ==
[~2021-10-13] VITALS: Ht 170.2 cm; Wt 90.9 kg
[2021-10-13] MEDS ORDERED: NS 1,000 ML IV ONE (18:05)
[2021-10-13] MEDS ORDERED: ONDANSETRON 4MG/2ML VIAL IV ONE (18:50)
[2021-10-13] MEDS ORDERED: ACETAMINOPHEN 500 MG TAB PO ONE (18:50)
--- OUTSIDE RECORDS SUMMARY | 2021-10-13 19:06 | CCD ---
Author Author [facility] Organization [facility] Address Unknown Phone Unavailable Care Team Providers Care Manager Laboratory Name Role Phone Merissa Summers Unavailable PROBLEMS Type Condition ICD9-CM Code NNH16-EN Code Onset Dates Condition S tatus W/U Status Risk SNOMED Code Notes Problem Nontoxic multinodular goiter E04.2 Active confirme d 94562898 Problem Hyperlipidemia E78.5 Active confirmed 76554 004 Problem Breast cancer screening Z12.39 Active confirmed 997215236 Problem Eczema L30.9 Active confirmed 37959718 Problem Gastroesophageal reflux disease with esophagitis K 21.0 Active confirmed 460565427 Problem Depression F32.9 Active confirmed 66478859 Problem Overweight E66.3 Active confirmed 908402201 Problem Vitamin D deficiency E55.9 Active confirmed 06412626 Problem AK (actinic keratosis) L57.0 Active confirmed 956303975 Problem CKD (chronic kidney disease) stage 3, GFR 30-59 ml/min N18.3 Active confirmed 516888178 Problem Chronic fatigue R53.82 Active confirmed 5270 2003 Problem Urinary incontinence in female R32 Active confir med 631983673 Problem JUSTIN (obstructive sleep apnea) G47.33 Active confirm ed 80089640 Problem CAD (coronary artery disease) I25.10 Active confirm ed 08224282 Problem New daily persistent headache G44.52 Active co nfirmed 094764369135412 Problem Colon cancer screening Z12.11 Active confirmed 290065383 Problem IFG (impaired fasting glucose) R73.01 Active confir med 763835024 Problem PLMD (periodic limb movement disorder) G47.61 A ctive confirmed 023560277 Problem Chronic throat clearing R68.89 Active confirmed 983053276 Problem Gastroesophageal reflux disease K21.9 Active confi rmed 644005491 Problem Depression, unspecified depression type F32.9 Active confirmed 09176006 ALLERGIES Allergen (clinical drug ingredient) Drug/Non Drug Allergy do cumented on EMR Reaction Allergy Type Onset Date Status pregabalin Lyrica([facility] Code:[address]-32) abnormal tongue s ensations Drug Allergy Active Vicodin insomnia Drug Allergy Active celecoxib Celebrex([facility] Code:[address]-21) SOB Drug Allergy Active Sulfasalazine Sulfa Antibiotics Rash Drug Allergy Ac tive ENCOUNTERS from 1950 to 2021-09-05 Encounter Location Date Provider Diagnosis [place] [id number] [facility] [phone] [place] [address] Aug, Merissa Rosario-Tartell Temporal headache R51.9 IMMUNIZATIONS Vaccine Route Administration Date Status Influenza 18 yrs & older Flublok IM Intramuscular Sep 20, 2018 Administered Influenza (High Dose 65 & up) IM Intramuscular Sep 21, 2015 A dministered Influenza 6mo & up Fluzone IM Intramuscular Aug 01, 2014 Admi nistered SOCIAL HISTORY Tobacco Use: Social History Observation Description Date Details (start date - stop date) Never Smoker Sex Assigned At : Social History Observation Description Sex Assigned At Unknown Education: Question Answer Notes Level of Education: Finished High School Audit Question Answer Notes Total Score: 1 Interpretation: Alcohol Education Language: Question Answer Notes Languages spoken: Italian Mu-Ism: Question Answer Notes Mu-Ism 06 [employer] Sexual Hx: Question Answer Notes Had sex in the last 12 months (vaginal, oral, or anal)? Yes Have you ever had an STD? No with Men only Use protection? No Drug and Alcohol Question Answer Notes Total Score: 0 Interpretation: No problems reported Alcohol Screening: Question Answer Notes Did you have a drink containing alcohol in the past year? Ye s Points 1 Interpretation Negative How often did you have six or more drinks on one occas ion in the past year? Never (0 points) How many drinks did you have on a typica l day when you were drinking in the past year? 1 or 2 (0 points) How often did you have a drink containing alcohol in t he past year? Monthly or less (1 point) BMI Care Goal Follow-Up Question Answer Notes Above Normal BMI Follow-Up Giving encouragement to exercise Tobacco Use: Question Answer Notes Are you a: never smoker REASON FOR REFERRAL from 1950 to 2021-09-05 Reason Patient with new daily tempo ral headache, should have a temporal artery biopsy. Please eval and treat. Diagnosis 1 Temporal headache (R51.9) Referral Organization [facility] [place] Referring Provider First Name Franchesca Referring Provider Last Name Dennis Referring Provider Specialty Family Medicine Referred Provider V[facility]ULAR,[facility] Referred Provider Specialty Vascular Surgery Referral Priority Stat General Notes Aba Mack 09/04/2021 5:2 1:53 PM > faxed VITAL SIGNS No information MEDICATIONS Medication SIG (Take, Route, Frequency, Duration) Notes Start Da te End Date Status SUMAtriptan Succinate 100 MG 1 tablet at onset of head ache, may repeat once in 2 hours Orally Twice a day, mdd=2 for 30 days Aug, Active Triamcinolone Acetonide 0.1 % 1 application sparingly to affected area Externally to neck bid x 5 days with flares for 30 Days Not-Taking Pramipexole Dihydrochloride 0.25 MG 1 tablet Orally before b edtime for 90 days Active Glucosamine Chondro Complex Not-Taking Cholestyramine 4 GM 1 packet mixed with water or non-carbonated drink Orally Once a day for 30 day(s) March, Not-Avila ing Beano - as directed Orally Not-Ta marvel Multivitamins OTC 1 tab(s) Orally Once a day Active Atorvastatin Calcium 40 MG 1 tablet Orally Once a day for 90 days Active Fluoxetine HCl 40 MG 1 capsule Orally Once a day for 90 days Dec, Active Calcium 600 + D 600-400 MG-UNIT 1 tablet Orally Twice a day Not-Taking Aspirin Adult Low Strength 81 MG 1 tablet Orally Once a day for 90 da ys Active Protonix 40 MG 1 tablet Orally Daily for 90 days Jun, 2 018 Active Ondansetron HCl 4 MG 1 tablet at onset of headach e Orally Once a day for 30 days Aug, Active Dicyclomine HCl 10 MG 1 tablet Orally Three times a day Not-Taking Vitamin D3 Super Strength 2000 UNIT 2 1/2 tablet Orally Once a day Not-Taking predniSONE 20 MG 3 tabs x 4d, then 2 tabs x 4 d, then 1 tab x 4d, then 1/2 tab x 4d Orally Once a day for 16 days Aug, Active PROCEDURES No Information RESULTS No Results REASON FOR VISIT I am calling to check in MEDICAL (GENERAL) HISTORY Type Description Date Medical History eczema Medical History history of colonoscopy with tubular adenomas; last colonoscopy 02/2019, with one polyp, repeat colonoscopy 5 years; then had a colonoscopy with hyperplastic polyps 04/2021, recommending 5 year followup Medical History depression Medical History multinodular goiter stable by December 11 ultrasound Medical History reflux laryngitis and esophagitis, with globus sensation Medical History 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 Head, nonsurgical per Dr. Vivar Medical History traumatic R radial fracture requiring c ast April 2011 Medical History mild cognititve impairment-04/2012 MRI br ain c minimal Medical History worsening stress incontinenc e, given a pessary which she does not use Medical History CAD s/p 04/09/[address] (of mid LAD severe stenosis, SPENCER not done 2 required upcoming dental work)for stable angina 04/09/1562-Aphgdi-QLV Medical History RLS Medical History IFG Medical History EGD with gastric polyps (02/2019) Medical History normal mammogram (12/2019) Medical History R fibular fracture (06/2019) Surgical History bunionectomy bilateral 2001 Surgical History hysterectomy, total 1998 Surgical History back surgery 2006 Surgical History heart catheterization and stent 04/09/15 Surgical History angio 04-23-17 Surgical History colonoscopy with serrated polyp, recheck in 5 years 02/2019 Surgical History colonoscopy, Dr.Reedy Hammond 04/2021 Hospitalization History none Goals Section No Information Health Concerns No Information MEDICAL EQUIPMENT No Information MENTAL STATUS No Information FUNCTIONAL STATUS No Information ASSESSMENTS Encounter Date Diagnosis Assessment Notes Treatment Notes Treatm ent Clinical Notes Aug, Temporal headache (ICD-10 - R51.9) PLAN OF TREATMENT Medication Medication Name Sig Start Date Stop Date predniSONE 20 MG 3 tabs x 4d, then 2 tabs x 4 d, then 1 tab x 4d, then 1/2 tab x 4d Orally Once a day for 16 days Aug, Ondansetron HCl 4 MG 1 tablet at onset of headach e Orally Once a day for 30 days Aug, SUMAtriptan Succinate 100 MG 1 tablet at onset of head ache, may repeat once in 2 hours Orally Twice a day, mdd=2 for 30 days Aug, Treatment Notes Test Name Order Date ERYTHROCYTE SEDIMENTATION RATE 2021-09-04 C REACTIVE PROTEIN QUANTITATIV (At [facility]) 2021-09-04 CBC with Differential 2021-09-04 Comprehensive Metabolic Profile (CMP) 2021-09-04 Referrals Referral Date Details Patient with new daily tempo ral headache, should have a temporal artery biopsy. Please eval and treat., [facility]ULAR Insurance Providers Payer Name Payer Address Payer Phone Insured Name Patient Relati onship to Insured Coverage Start Date Coverage End Date MEDICARE Part A and B [address] [facility] [phone] JUSTINE PRESCOTT [facility] [address] [place] [phone] JUSTINE PRESCOTT [id number]
--- OUTSIDE RECORDS SUMMARY | 2021-10-13 19:06 | CCD | Continuity of Care Document ---
Author Author [facility] Organization Unknown Address [address] [place] [address] Phone [phone] Care Team Providers Care Ct Technician Name Role Phone Merissa Summers DO AUTM Problems Description No Information Available Social History Type Date Description Comments Sex Unknown ETOH Use Rarely consumes alcohol Tobacco Use Start: Unknown Patient has never smoked Sun Exposure minimum amount of sun exposure Sun Exposure Tanning bed - Has used in past. No longer using. Sun Exposure Has never experienced blistering from sunburns Sun Exposure Uses 15-30 SPF Sun Exposure Uses > 30 SPF Allergies, Adverse Reactions, Alerts Active Allergies Criticality Reaction | Severity Comments Date sulfa Unable to assess criticality 05/22/2021 Celebrex Unable to assess criticality 05/22/2021 Lyrica Unable to assess criticality 05/22/2021 Vicodin Unable to assess criticality 05/22/2021 Medications Active Medications SIG Qnty Indications Ordering Provide r Date Ketoconazole 2% Cream apply to affected area sparingly twice a day 60gm L21.8 MIESHA Romero 07/19/2021 Fluticasone Propionate 0.05% Cream apply to perioral area sparingly twice a day as needed 15gm L21.8 SEBASTIEN Romero 07/08/2021 Metrogel 1% Gel apply to f víctor daily 55gm L21.8 SEBASTIEN Romero 05/22/2021 Fluoxetine HCL Unknown Protonix Unknown Lipitor Unknown Aspirin 81 Low Dose Unknown Mirapex Unknown Dicyclomine HCL Unknown 0 Multivitamin Unknown Calcium 600 Unknown History Medications Minocycline HCL 100mg Capsules 1 by mouth twice a day 60caps L21.8 SEBASTIEN Romero 021 - 07/19/2021 Immunizations Description No Information Available Vital Signs Date Vital Result Comment 07/19/2021 3:27pm BP Systolic 132 mmHg BP Diastolic 70 mmHg Weight 200.00 lb Height 67 inches 5'7" BMI (Body Mass Index) 31.3 kg/m2 07/08/2021 12:17pm BP Systolic 132 mmHg BP Diastolic 82 mmHg Heart Rate 68 /min Respiratory Rate 12 /min Results Test Acquired Date Facility Test Result H/L Range Note [facility] Path[facility] 05/22/2021 [facility] LC Icd9 Code ICD9 Code: L85.9 1, 2 PDFR[facility]ort SEE IMAGE 1 LN2 any remaining 2 ICD9 Code: L85.9 Protocol: shave Clinical Text: LPLK VS. SL Final Diagnosis: HYPERKERATOSIS. Final Diagnosis: COMMENT: MULTIPLE SECTIONS HAVE BEEN EXAMINED AND NO EPIDERMIS IS PRESENT. IF CLINICAL SUSPICION OF AN ATYPICAL PROCESS PERSISTS AN ADDITIONAL BIOPSY MAY BE PRUDENT. Gross Text: Two specimens were received in the same vial. The first specimen grossly was irregular in shape and measured 3 x 1 mm. on the surface and 1 mm. deep. The second specimen grossly was irregular in shape and measured 5 x 1 mm. on the surface and 1 mm. deep. All of the tissue was submitted for processing. Microscopic Description: There are fragments of lamellated keratin. CPT: 99218*1 Procedures Date Code Description Status 07/19/2021 84306 Office/Outpatient Established Mo d MDM 30-39 Min Completed 07/08/2021 96810 Office/Outpatient Established Mo d MDM 30-39 Min Completed 06/13/2021 75241 Office/Outpatient Established Mo d MDM 30-39 Min Completed 05/22/2021 15625 Office/Outpatient New Moderate M DM 45-59 Minutes Completed 05/22/2021 88230 Shave Biopsy Of Skin, Single Les ion Completed Medical Devices Description No Information Available Encounters Type Date Location Provider Dx Diagnosis Office Visit 07/19/2021 3:30p Main Office SEBASTIEN Romero L 21.8 Other seborrheic dermatitis R20.8 Other disturbances of skin s ensation Office Visit 07/08/2021 11:45a Main Office Caridad Valentin LongoriaFlynn, FNP-C L 71.0 Perioral dermatitis Office Visit 06/13/2021 3:15p Main Office [facility] Valentin Flynn, FNP-C L 82.1 Other seborrheic keratosis L85.9 Epidermal thickening, unspec ified L71.0 Perioral dermatitis Office Visit 05/22/2021 11:30a Main Office Caridad SAWYER Gamez-C L 71.0 Perioral dermatitis L81.4 Other melanin hyperpigmentat ion D48.5 Neoplasm of uncertain behavi or of skin L82.1 Other seborrheic keratosis D22.5 Melanocytic nevi of trunk L72.3 Sebaceous cyst L21.8 Other seborrheic dermatitis D22.71 Melanocytic nevi of right lo wer limb, including hip D22.72 Melanocytic nevi of left low er limb, including hip Z12.83 Encounter for screening for malignant neoplasm of skin Assessments Date Code Description Provider 07/19/2021 L21.8 Other seborrheic dermatitis Aylin sa Valentin Flynn [employer] 07/19/2021 R20.8 Other disturbances of skin sensa tion Caridad Valentin Flynn [employer] 07/08/2021 L71.0 Perioral dermatitis Caridad D Wetmore nsend, [employer] 06/13/2021 L82.1 Other seborrheic keratosis Eliss a Valentin Flynn [employer] 06/13/2021 L85.9 Epidermal thickening, unspecifie d Caridad Valentin Flynn [employer] 06/13/2021 L71.0 Perioral dermatitis Caridad D Wetmore nsend, [employer] 05/22/2021 L71.0 Perioral dermatitis Caridad D Wetmore nsend, [employer] 05/22/2021 L81.4 Other melanin hyperpigmentation Caridad D Estevan [employer] 05/22/2021 D48.5 Neoplasm of uncertain behavior o f skin Caridad D Estevan [employer] 05/22/2021 L82.1 Other seborrheic keratosis Eliss a D Estevan [employer] 05/22/2021 D22.5 Melanocytic nevi of trunk SEBASTIEN Romero 05/22/2021 L72.3 Sebaceous cyst SEBASTIEN Meza 05/22/2021 L21.8 Other seborrheic dermatitis SEBASTIEN Mckee sa 05/22/2021 D22.71 Melanocytic nevi of right lower limb, including hip SEBASTIEN Romero 05/22/2021 D22.72 Melanocytic nevi of left lower l imb, including hip SEBASTIEN Romero 05/22/2021 Z12.83 Encounter for screening for yovani gnant neoplasm of skin SEBASTIEN Romero Plan of Treatment Future Appointment(s):* 05/22/2022 11:15 am - SEBASTIEN Romero at Main Office 07/19/2021 - SEBASTIEN Romero* L21.8 Other seborrheic dermatitis* New Medication:* Ketoconazole 2 % - apply to affected area sparingly twice a day * Comments:* Improved on face, but not clear.Continue the Minocycline x 1 dose then DC. Continue to hold Metrogel.Discussed diagnosis and treatment options - after noticing the additional areas, I feel this is more singh derm than perioral derm. Discussed that this is a chronic condition that I can not cure but hopefully will find products to keep clearer and not be so itchy.Start Ketoconazole 2% cream to face, R postauricular and posterior neck twice daily Thursday - Thursday.Continue Fluticasone 0.05% cream to perioral area BID on Saturdays and Sundays only if itchy.Knows topical steroid safety.Knows not to overuse.Discussed to call office if needing to apply topical steroid more than a couple of times per week.Call with problems. * R20.8 Other disturbances of skin sensation* Comments:* See above. * Follow up:* Has appointment Functional Status Description No Information Available Mental Status Description No Information Available Referrals Description No Information Available
--- OUTSIDE RECORDS SUMMARY | 2021-10-13 19:06 | CCD ---
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 Name Role Phone Merissa Summers Unavailable PROBLEMS Type Condition ICD9-CM Code AGX32-UA Code Onset Dates Condition S tatus W/U Status Risk SNOMED Code Notes Problem Nontoxic multinodular goiter E04.2 Active confirme d 24995399 Problem Hyperlipidemia E78.5 Active confirmed 10378 004 Problem Breast cancer screening Z12.39 Active confirmed 518940744 Problem Eczema L30.9 Active confirmed 91966097 Problem Gastroesophageal reflux disease with esophagitis K 21.0 Active confirmed 685627620 Problem Depression F32.9 Active confirmed 79156317 Problem Overweight E66.3 Active confirmed 683092610 Problem Vitamin D deficiency E55.9 Active confirmed 21453006 Problem AK (actinic keratosis) L57.0 Active confirmed 844467997 Problem CKD (chronic kidney disease) stage 3, GFR 30-59 ml/min N18.3 Active confirmed 654340469 Problem Chronic fatigue R53.82 Active confirmed 5270 2003 Problem Urinary incontinence in female R32 Active confir med 997209322 Problem JUSTIN (obstructive sleep apnea) G47.33 Active confirm ed 91578936 Problem CAD (coronary artery disease) I25.10 Active confirm ed 81524920 Problem New daily persistent headache G44.52 Active co nfirmed 393750186008110 Problem Colon cancer screening Z12.11 Active confirmed 561084397 Problem IFG (impaired fasting glucose) R73.01 Active confir med 378436427 Problem PLMD (periodic limb movement disorder) G47.61 A ctive confirmed 015449853 Problem Chronic throat clearing R68.89 Active confirmed 951572440 Problem Gastroesophageal reflux disease K21.9 Active confi rmed 390623835 Problem Depression, unspecified depression type F32.9 Active confirmed 97977351 ALLERGIES Allergen (clinical drug ingredient) Drug/Non Drug Allergy do cumented on EMR Reaction Allergy Type Onset Date Status pregabalin Lyrica([facility] Code:[address]-69) abnormal tongue s ensations Drug Allergy Active Vicodin insomnia Drug Allergy Active celecoxib Celebrex([facility] Code:[address]-01) SOB Drug Allergy Active Sulfasalazine Sulfa Antibiotics Rash Drug Allergy Ac tive ENCOUNTERS from 1950 to 2021-09-05 Encounter Location Date Provider Diagnosis [place] [id number] [place] [phone] Aug, Merissa Rosario-Tartell Temporal pain R51.9 and New daily persis tent headache G44.52 IMMUNIZATIONS Vaccine Route Administration Date Status Influenza [...] Education Language: Question Answer Notes Languages spoken: Citizen Of [place] Nondenominational: Question Answer Notes Nondenominational 06 [employer] Sexual Hx: Question Answer Notes Had sex [...] you a: never smoker REASON FOR REFERRAL No Information VITAL SIGNS No information MEDICATIONS Medication SIG [...] tablet Orally Daily for 90 days Jun, 018 Active Ondansetron HCl 4 MG 1 [...] Information RESULTS No Results REASON FOR VISIT resend scripts MEDICAL (GENERAL) HISTORY Type Description Date Medical [...] 2 required upcoming dental work)for stable angina 04/09/1532-Wjgqnn-YQE Medical History RLS Medical History IFG Medical [...] Notes Treatm ent Clinical Notes Aug, Temporal pain (ICD-10 - R51.9) Aug, New daily persistent headache (ICD-10 - G44.52) PLAN OF TREATMENT Medication Medication Name Sig [...] a day, mdd=2 for 30 days Aug, Insurance Providers Payer Name Payer Address Payer Phone Insured Name Patient Relati onship to Insured Coverage Start Date Coverage End Date MEDICARE Part A and B [address] [facility] [phone] JUSTINE PRESCOTT [facility] [address] [place] [phone] JUSTINE PRESCOTT [id number]
--- OUTSIDE RECORDS SUMMARY | 2021-10-13 19:06 | CCD | Continuity of Care Document ---
Author Whitney Hernandez M.D. Organization Unknown Address [address] [place] [address] Phone [phone] Care Team Providers Care Certified Low Vision Therapist Name Role Phone Franchesca Collins AUTM [phone] Merissa Ponce D.O. AUTM [phone] Problems Active Problems Provider Date Coronary arteriosclerosis Hue Toussaint M.D. Onset: 2020 Pure hypercholesterolemia Hue Toussaint M.D. Onset: 2020 Social History Type Date Description Comments Sex Unknown ETOH Use Rarely consumes alcohol Tobacco Use Reviewed: 09/25/21 Patient has never smoked Smoking Status Reviewed: 09/25/21 Patient has never smoked Allergies and adverse reactions Active Allergies Criticality Reaction | Severity Comments Date Lyrica Unable to assess criticality Tongue swelling 09/12/2021 Sulfa Unable to assess criticality Rash 09/12/2021 Vicodin Unable to assess criticality Anxiety 09/12/2021 Celebrex Unable to assess criticality Palpitations 09/12/2021 Medications Active Medications SIG Qnty Indications Ordering Provide r Date Prozac 40mg Capsules take 1 capsule by oral route every day in the morning Unknown Lipitor 20mg Tablets 1 by mouth every night at bedtime Unknown Mirapex ER 1.5mg Tablets ER 24HR Unknown Protonix 20mg Tablets DR 1 by mouth every day Unknown Multi Vitamin Tablets 1 by mouth every day Unknown Calcium 500 + D [id number] Tablets Unknown Prednisone 20mg Tablets every day (complete on 09/18/2021) Unknown /0 000 Ondansetron HCL 4mg/5ML Solution will complete on 09/18/2021 Unknown 0 Sumatriptan Succinate 100mg Tablet s takes prn migrane Unknown Immunizations Description No Information Available Vital Signs Date Vital Result Comment 09/25/2021 10:27am BP Systolic Left Arm 145 mmHg BP Diastolic Left Arm 78 mmHg Heart Rate 70 /min Body Temperature 94.9 F Height 67 inches 5'7" Weight 205.00 lb Weight 92.988 kg BMI (Body Mass Index) 32.1 kg/m2 09/18/2021 5:59am BP Systolic Left Arm 168 mmHg BP Diastolic Left Arm 89 mmHg Heart Rate 70 /min Body Temperature 97.0 F Respiratory Rate 18 /min Height 67 inches 5'7" Weight 205.00 lb Weight 92.988 kg O2 % BldC Oximetry 95 % BMI (Body Mass Index) 32.1 kg/m2 Pain Level 0 Results Test Acquired Date Facility Test Result H/L Range Note Laboratory test finding 09/18/2021 Lab [place] ([facility])- - Surgical Pathology Specimen [facility] <SEE NOTE> 1 1 [place] [address] Surgical Pathology Report Patient Name:WHITNEY PRESCOTT Patient :1950 Ordering Physician:HUE TOUSSAINT MD Specimen(s) Received A: Left temporal artery biopsy Clinical Diagnosis and History Headaches DIAGNOSIS LEFT TEMPORAL ARTERY, BIOPSY: FRAGMENT OF ARTERIAL WALL WITH MILD ELASTIC LAMINA DISRUPTION NO EVIDENCE OF TEMPORAL ARTERITIS (SEE COMMENTS) Comments Elastic stain demonstrate segmental elastic laminar disruption. The presence of elastic laminar disruption in absence of inflammation may be secondary to atherosclerotic changes and/or trauma. Correlation with clinical features, laboratory findings and appropriate follow-up is recommended. Gross Description Received in formalin labeled left temporal artery biopsy is a 0.9 cm in length x 0.1 cm in diameter chacko, hemorrhagic, tubular, rubbery segment of tissue. Entirely submitted as A1. Temporal artery biopsy protocol. maria de jesus peace/ran Reported: 09/24/2021 11:50 Electronically Signed Out By Emily Gray MD [facility] [address] [place], [place] [id number] [facility] ICD code: R51.9 CPT code: A: 56842K, 82153O Technical component performed at [facility], [address] [place], [place], [address]. Reported at [facility], [address] [place], [place], [address]. This report may include immunohistochemical or in-situ hybridization results. Testing was developed and the performance characteristics determined by [employer] [place], [facility] as required by CLIA '88. The FDA has determined that approval for specific use is not necessary for clinical use. The quality of Hematoxylin and Eosin stains and as applicable, for all immunohistochemical and/or special stains, including positive and negative controls, were reviewed and considered appropriate. Procedures Date Code Description Status 09/12/2021 33959 Office/Outpatient New Moderate M DM 45-59 Minutes Completed Medical Devices Description No Information Available Encounters Type Date Location Provider Dx Diagnosis Office Visit 09/25/2021 10:15a Main Office Hue Toussaint M.D. Z48.8 12 Encntr for surgical aftcr following surgery on the circ sys Assessments Date Code Description Provider 09/25/2021 Z48.812 Encounter for surgic al aftercare following surgery on the circulatory system Hue Toussaint M.D. 09/12/2021 R51.9 Headache, unspecified Hue brady M.D. Plan of Treatment 09/25/2021 - Hue Toussaint M.D.* Z48.812 Encntr for surgical aftcr following surgery on the circ sys * * Follow up:* PRN Functional Status Description No Information Available Mental Status Description No Information Available Referrals Description No Information Available
--- OUTSIDE RECORDS SUMMARY | 2021-10-13 19:06 | CCD | Continuity of Care Document ---
Author Author Whitney TOUSSAINT M.D. Organization Unknown Address [address] [place] [address] Phone [phone] Care Team Providers Care District Sales Manager Name Role Phone [facility] [phone] Problems Active Problems Provider Date Coronary arteriosclerosis Cristian Toussaint M.D. Onset: 2020 Social History Type Date Description Comments Sex Unknown Allergies and adverse reactions Description No Information Available Medications Description No Information Available Immunizations Description No Information Available Vital Signs Date Vital Result Comment 09/12/2021 8:55am Body Temperature 96.0 F Results Description No Information Available Procedures Description No Information Available Medical Devices Description No Information Available Encounters Description No Information Available Assessments Description No Information Available Plan of Treatment No Information Available Functional Status Description No Information Available Mental Status Description No Information Available Referrals Description No Information Available
--- OUTSIDE RECORDS SUMMARY | 2021-10-13 19:06 | CCD | Continuity of Care Document ---
Author Author Whitney TOUSSAINT M.D. Organization Unknown Address [address] [place] [address] Phone [phone] Care Team Providers Care Shovel Oiler Name Role Phone Franchesca Collins AUTM [phone] Problems Active Problems Provider Date Coronary arteriosclerosis Hue Toussaint M.D. Onset: 2020 Pure hypercholesterolemia Hue Toussaint M.D. Onset: 2020 Social History Type Date Description Comments Sex Unknown ETOH Use Rarely consumes alcohol Tobacco Use Reviewed: 09/12/21 Patient has never smoked Smoking Status Reviewed: 09/12/21 Patient has never smoked Allergies and adverse [...] every day Unknown Calcium 500 + D [id number] Tablets Unknown Prednisone 20mg Tablets every day (complete on 09/18/2021) Unknown 00/0 000 Ondansetron HCL 4mg/5ML Solution will complete on 09/18/2021 Unknown 0 Sumatriptan Succinate 100mg Tablet s takes prn migrane Unknown Immunizations Description No Information Available Vital Signs Date Vital Result Comment 09/18/2021 5:59am BP Systolic Left Arm 168 mmHg BP Diastolic Left Arm 89 mmHg Heart Rate 70 /min Body Temperature 97.0 F Respiratory Rate 18 /min Height 67 inches 5'7" Weight 205.00 lb Weight 92.988 kg O2 % BldC Oximetry 95 % BMI (Body Mass Index) 32.1 kg/m2 Pain Level 0 09/12/2021 8:55am BP Systolic Right Arm 158 mmHg BP Diastolic Right Arm 90 mmHg BP Systolic Left Arm 158 mmHg BP Diastolic Left Arm 90 mmHg Heart Rate 78 /min Body Temperature 96.0 F Height 67 inches 5'7" Weight 200.00 lb Weight 90.720 kg BMI (Body Mass Index) 31.3 kg/m2 Results Test Acquired Date Facility Test Result H/L Range Note Laboratory test finding 09/18/2021 Lab [place] ([place])- - Surgical Pathology Specimen [facility] <SEE NOTE> 1 1 [facility] [address] [place] [address] Surgical Pathology Report Patient Name:WHITNEY RIZVI Patient :1950 Ordering Physician:HUE TOUSSAINT MD Specimen(s) [...] submitted as A1. Temporal artery biopsy protocol. [facility] lmr/ixt Reported: 09/24/2021 11:50 Electronically Signed Out By Emily Gray MD [facility] [address] [place] [address] ICD code: R51.9 CPT code: A: 49216D, 42910X Technical component performed at [facility], [facility], Histopathology, [address] [place], [place], [address]. Reported at [facility], [address] [place], [place], [address]. This report may include immunohistochemical or in-situ hybridization results. Testing was developed and the performance characteristics determined by [facility] [employer] [facility] as required by CLIA '88. The FDA has determined that approval for specific use is not necessary for clinical use. The quality of Hematoxylin and Eosin stains and as applicable, for all immunohistochemical and/or special stains, including positive and negative controls, were reviewed and considered appropriate. Procedures Description No Information Available Medical Devices Description No Information Available Encounters Description No Information Available Assessments Description No Information Available Plan of Treatment Future Appointment(s):* 09/25/2021 10:15 am - Hue Toussaint M.D. at Main Office Functional Status Description No Information Available Mental Status Description No Information Available Referrals Description No Information Available
--- OUTSIDE RECORDS SUMMARY | 2021-10-13 19:06 | CCD ---
Author Author [facility] Organization [facility] Address Unknown Phone Unavailable Care Team Providers Care Sap Bpc Developer Name Role Phone Merissa Summers Unavailable PROBLEMS Type Condition ICD9-CM Code NIO48-EJ Code Onset Dates Condition S tatus W/U Status Risk SNOMED Code Notes Problem Nontoxic multinodular goiter E04.2 Active confirme d 56958360 Problem Hyperlipidemia E78.5 Active confirmed 35786 004 Problem Breast cancer screening Z12.39 Active confirmed 753572982 Problem Eczema L30.9 Active confirmed 26905639 Problem Gastroesophageal reflux disease with esophagitis K 21.0 Active confirmed 123292655 Problem Depression F32.9 Active confirmed 11761504 Problem Overweight E66.3 Active confirmed 274446925 Problem Vitamin D deficiency E55.9 Active confirmed 22084708 Problem AK (actinic keratosis) L57.0 Active confirmed 942244231 Problem CKD (chronic kidney disease) stage 3, GFR 30-59 ml/min N18.3 Active confirmed 845367077 Problem Chronic fatigue R53.82 Active confirmed 5270 2003 Problem Urinary incontinence in female R32 Active confir med 687829013 Problem JUSTIN (obstructive sleep apnea) G47.33 Active confirm ed 15526926 Problem CAD (coronary artery disease) I25.10 Active confirm ed 10982301 Problem New daily persistent headache G44.52 Active co nfirmed 897088490767471 Problem Colon cancer screening Z12.11 Active confirmed 358205509 Problem IFG (impaired fasting glucose) R73.01 Active confir med 836909014 Problem PLMD (periodic limb movement disorder) G47.61 A ctive confirmed 387535175 Problem Chronic throat clearing R68.89 Active confirmed 958384024 Problem Gastroesophageal reflux disease K21.9 Active confi rmed 528761893 Problem Depression, unspecified depression type F32.9 Active confirmed 37426192 ALLERGIES Allergen (clinical drug ingredient) Drug/Non Drug Allergy do cumented on EMR Reaction Allergy Type Onset Date Status pregabalin Lyrica([facility] Code:[address]-97) abnormal tongue s ensations Drug Allergy Active Vicodin insomnia Drug Allergy Active celecoxib Celebrex([facility] Code:[address]-22) SOB Drug Allergy Active Sulfasalazine Sulfa Antibiotics Rash Drug Allergy Ac tive ENCOUNTERS from 1950 to 2021-09-07 Encounter Location Date Provider Diagnosis [place] [id number] [place] [address] Aug, Merissa Rosario-Tartell IMMUNIZATIONS Vaccine Route Administration Date Status Influenza [...] Education Language: Question Answer Notes Languages spoken: Sudanese Restoration: Question Answer Notes Restoration 06 Zoroastrianism Sexual Hx: Question Answer Notes Had sex [...] Information RESULTS No Results REASON FOR VISIT headaches x 2 weeks MEDICAL (GENERAL) HISTORY Type Description Date Medical [...] 2 required upcoming dental work)for stable angina 04/09/1585-Jnkgys-DON Medical History RLS Medical History IFG Medical [...] No Information FUNCTIONAL STATUS No Information ASSESSMENTS No Information PLAN OF TREATMENT Medication Medication Name Sig [...] Insured Coverage Start Date Coverage End Date [facility] [address] [facility] 2 [phone] JUSTINE PRESCOTT [id number] MEDICARE Part A and [address] [place] [address] 87 [phone] JUSTINE PRESCOTT self
--- OUTSIDE RECORDS SUMMARY | 2021-10-13 19:06 | CCD | Continuity of Care Document ---
Author Author [facility]ette [facility] Outpt Surgical Ce Whitney davis Organization Unknown Address [address] [place] [address] Phone [phone] Care Team Providers Care Assistant Front Office Manager Name Role Phone Franchesca Collins AUTM [phone] Problems Active Problems Provider Date Coronary arteriosclerosis Cristian Mcdonnell M.D. Onset: 2020 Pure hypercholesterolemia Cristian Mcdonnell M.D. Onset: 2020 Social History Type Date [...] every day Unknown Calcium 500 + D [id number] Tablets Unknown Prednisone 20mg Tablets every day (complete on 09/18/2021) Unknown 000 000 Ondansetron HCL 4mg/5ML Solution will complete [...] BMI (Body Mass Index) 31.3 kg/m2 Results Description No Information Available Procedures Description No Information Available Medical Devices Description No Information Available Encounters Description No Information Available Assessments Description No Information Available Plan of Treatment Future Appointment(s):* 09/25/2021 9:15 am - Cristian Mcdonnell M.D. at Main Office Functional Status Description No Information Available Mental Status Description No Information Available Referrals Description No Information Available
--- OUTSIDE RECORDS SUMMARY | 2021-10-13 19:06 | CCD ---
Author Author [facility] Organization [facility] Address Unknown Phone Unavailable Care Team Providers Care Pipefitter Welder Name Role Phone Franchesca Collins Unavailable PROBLEMS Type Condition ICD9-CM Code KTD09-KE Code Onset Dates Condition S tatus W/U Status Risk SNOMED Code Notes Problem Nontoxic multinodular goiter E04.2 Active confirme d 90999945 Problem Hyperlipidemia E78.5 Active confirmed 02434 004 Problem Breast cancer screening Z12.39 Active confirmed 659919352 Problem Eczema L30.9 Active confirmed 92824729 Problem Gastroesophageal reflux disease with esophagitis K 21.0 Active confirmed 841142277 Problem Depression F32.9 Active confirmed 16463506 Problem Overweight E66.3 Active confirmed 302349165 Problem Vitamin D deficiency E55.9 Active confirmed 95931639 Problem AK (actinic keratosis) L57.0 Active confirmed 767204376 Problem CKD (chronic kidney disease) stage 3, GFR 30-59 ml/min N18.3 Active confirmed 491602719 Problem Chronic fatigue R53.82 Active confirmed 5270 2003 Problem Urinary incontinence in female R32 Active confir med 169233753 Problem JUSTIN (obstructive sleep apnea) G47.33 Active confirm ed 18983723 Problem CAD (coronary artery disease) I25.10 Active confirm ed 06897640 Problem New daily persistent headache G44.52 Active co nfirmed 388795473255076 Problem Colon cancer screening Z12.11 Active confirmed 818900360 Problem IFG (impaired fasting glucose) R73.01 Active confir med 591620629 Problem PLMD (periodic limb movement disorder) G47.61 A ctive confirmed 022264942 Problem Chronic throat clearing R68.89 Active confirmed 389634931 Problem Gastroesophageal reflux disease K21.9 Active confi rmed 164197165 Problem Depression, unspecified depression type F32.9 Active confirmed 36626157 ALLERGIES Allergen (clinical drug ingredient) Drug/Non Drug Allergy do cumented on EMR Reaction Allergy Type Onset Date Status pregabalin Lyrica([facility] Code:[address]-33) abnormal tongue s ensations Drug Allergy Active Vicodin insomnia Drug Allergy Active celecoxib Celebrex([facility] Code:[address]-09) SOB Drug Allergy Active Sulfasalazine Sulfa Antibiotics Rash Drug Allergy Ac tive ENCOUNTERS from 1950 to 2021-10-05 Encounter Location Date Provider Diagnosis [facility] [address] [place] [address] Aug, Franchesca Dennis Temporal pain R51.9 and New daily persis [...] Education Language: Question Answer Notes Languages spoken: Kyrgyz Anglican: Question Answer Notes Anglican 06 Catholic Sexual Hx: Question Answer Notes Had sex [...] REASON FOR REFERRAL No Information VITAL SIGNS Weight 210 lbs Aug, Weight-kg 95.26 kg Aug, Height 66 in Aug, BMI 33.89 kg/m2 Aug, Heart Rate 102 /min Aug, Respiratory Rate 18 /min Aug, Temperature 97.2 degrees Fahrenheit Aug, Oximetry 95 Aug, Blood pressure systolic 134 mm Hg Aug, Blood pressure diastolic 80 mm Hg Aug, MEDICATIONS Medication SIG (Take, Route, Frequency, Duration) [...] ing Beano - as directed Orally Not-Ta Multivitamins OTC 1 tab(s) Orally Once a [...] Information RESULTS No Results REASON FOR VISIT car [phone]//headaches for about 3 weeks, sched temporal artery u/s MEDICAL (GENERAL) HISTORY Type Description Date Medical [...] 2 required upcoming dental work)for stable angina 04/09/1584-Tbmgtc-OTQ Medical History RLS Medical History IFG Medical [...] Treatment Notes Treatm ent Clinical Notes Aug, New daily persistent headache (ICD-10 - G44.52) Aug, Temporal pain (ICD-10 - R51.9) Of course we need to rule out a temporal arteritis and so referrals are being made. In the meantime I have prescribed prednisone and also sumatriptan and ondansetron. Follow-up will be with her PCP PLAN OF TREATMENT Medication Medication Name Sig [...] a day, mdd=2 for 30 days Aug, Next Appt Details With PCP Reason: Insurance Providers Payer Name Payer Address Payer Phone Insured Name Patient Relati onship to Insured Coverage Start Date Coverage End Date MEDICARE Part A and B [address] [facility] [phone] JUSTINE PRESCOTT [facility] [address] [place] [phone] JUSTINE PRESCOTT [id number]
--- OUTSIDE RECORDS SUMMARY | 2021-10-13 19:06 | CCD | Continuity of Care Document ---
Author Whitney Hernandez M.D. Organization Unknown Address [address] [place] [address] Phone [phone] Care Team Providers Care Mechanical Service Technician Name Role Phone Franchesca Collins AUTM [phone] Merissa Ponce D.O. AUTM [phone] Problems Active Problems Provider Date Coronary arteriosclerosis [...] every day Unknown Calcium 500 + D [id number] Tablets Unknown Prednisone 20mg Tablets every day [...] Range Note Laboratory test finding 09/18/2021 Lab [place] ([facility])- - Surgical Pathology Specimen [facility] <SEE NOTE> 1 1 [place] [address] Surgical Pathology Report Patient Name:WHITNEY PRESCOTT Patient [...] Electronically Signed Out By Emily Gray MD [facility] [address] [place], [place] [id number] [facility] ICD code: R51.9 CPT code: A: 43464C, 38975D Technical component performed at [employer] [facility], [facility], [address] [place], [place], [address]. Reported at [facility], [address] [place], [place], [address]. This report may include immunohistochemical or in-situ hybridization results. Testing was developed and the performance characteristics determined by [employer] [place], [facility] as required by CLIA '88. The FDA has determined that approval for specific use is not necessary for clinical use. The quality of Hematoxylin and Eosin stains and as applicable, for all immunohistochemical and/or special stains, including positive and negative controls, were reviewed and considered appropriate. Procedures Date Code Description Status 09/12/2021 10308 Office/Outpatient New Moderate M DM 45-59 Minutes [...]
--- OUTSIDE RECORDS SUMMARY | 2021-10-13 19:06 | CCD | Continuity of Care Document ---
Author Whitney Hernandez M.D. Organization Unknown Address [address] [place] [address] Phone [phone] Care Team Providers Care Weekday Babysitter Name Role Phone Franchesca Collins AUTM [phone] Merissa Ponce D.O. AUTM [phone] Problems Active Problems Provider Date Coronary arteriosclerosis [...] every day Unknown Calcium 500 + D [id number] Tablets Unknown Prednisone 20mg Tablets every day [...] Range Note Laboratory test finding 09/18/2021 Lab [place] ([facility])- - Surgical Pathology Specimen [facility] <SEE NOTE> 1 1 [place] [address] Surgical Pathology Report Patient Name:WHITNEY PRESCOTT Patient [...] Electronically Signed Out By Emily Gray MD [facility] [address] [place], [place] [address] [facility] ICD code: R51.9 CPT code: A: 55376H, 90408T Technical component performed at [employer] [facility] [employer], Histopathology, [address] [place], [place], [address]. Reported at [facility], [address] [place], [place], [address]. This report may include immunohistochemical or in-situ hybridization results. Testing was developed and the performance characteristics determined by [employer] [place], [facility] as required by CLIA '88. The FDA has determined that approval for specific use is not necessary for clinical use. The quality of Hematoxylin and Eosin stains and as applicable, for all immunohistochemical and/or special stains, including positive and negative controls, were reviewed and considered appropriate. Procedures Date Code Description Status 09/12/2021 08606 Office/Outpatient New Moderate M DM 45-59 Minutes Completed Medical Devices Description No Information Available Encounters Type Date Location Provider Dx Diagnosis Office Visit 09/25/2021 10:15a Main Office Hue Toussaint M.D. Z48.8 12 Encntr for surgical aftcr following surgery on the circ sys Office Visit 09/12/2021 9:00a Main Office Hue Toussaint M.D. R51.9 Headache, unspecified Assessments Date Code Description Provider 09/25/2021 Z48.812 [...]
--- OUTSIDE RECORDS SUMMARY | 2021-10-13 19:06 | CCD | Continuity of Care Document ---
Author Author Whitney FLYNN [facility] Organization Unknown Address [address], [address] [place] [address] Phone [phone] Problems Description No Information Available Social History [...] SIG Qnty Indications Ordering Provide r Date Fluticasone Propionate 0.05% Cream apply to perioral area sparingly twice a day as needed 15gm L71.0 SEBASTIEN Romero 07/08/2021 Minocycline HCL 100mg Capsules 1 by mouth twice a day 60caps L71.0 SEBASTIEN Romero 021 Metrogel 1% Gel apply to f víctor daily 55gm L71.0 SEBASTIEN Romero 05/22/2021 Fluoxetine HCL Unknown Protonix Unknown Lipitor Unknown Aspirin 81 Low Dose Unknown Mirapex Unknown Dicyclomine HCL Unknown 0 Multivitamin Unknown Calcium 600 Unknown Immunizations Description No Information Available Vital Signs Date Vital Result Comment 07/08/2021 12:17pm BP Systolic 132 mmHg BP Diastolic 82 mmHg Heart Rate 68 /min Respiratory Rate 12 /min 07/08/2021 12:03pm Heart Rate 68 /min Respiratory Rate 12 [...] There are fragments of lamellated keratin. CPT: 00403*1 Procedures Date Code Description Status 07/08/2021 92897 Office/Outpatient Established Mo d MDM 30-39 Min Completed 06/13/2021 81901 Office/Outpatient Established Mo d MDM 30-39 Min Completed 05/22/2021 70744 Office/Outpatient New Moderate M DM 45-59 Minutes Completed 05/22/2021 80301 Shave Biopsy Of Skin, Single Les ion Completed Medical Devices Description No Information Available Encounters Type Date Location Provider Dx Diagnosis Office Visit 07/08/2021 11:45a Main Office SEBASTIEN Romero L 71.0 Perioral dermatitis Office Visit 06/13/2021 3:15p Main Office SEBASTIEN Romero L 82.1 Other seborrheic keratosis L85.9 Epidermal thickening, unspec ified L71.0 Perioral dermatitis Office Visit 05/22/2021 11:30a Main Office SEBASTIEN Romero L 71.0 Perioral dermatitis L81.4 Other melanin [...] of skin Assessments Date Code Description Provider 07/08/2021 L71.0 Perioral dermatitis Caridad D Teaneck nsend, [employer] 06/13/2021 L82.1 Other seborrheic keratosis Ayilns a Valentin Flynn, [employer]ATOR [employer] 06/13/2021 L85.9 Epidermal thickening, unspecifie d Caridad Valentin Flynn, [employer]ATOR [employer] 06/13/2021 L71.0 Perioral dermatitis Caridad D Teaneck nsend, W[employer]ATOR [employer]ER[employer] 05/22/2021 L71.0 Perioral dermatitis Caridad D Teaneck nsend, W[employer] COM[employer]OR OPERATOR [employer] 05/22/2021 L81.4 Other melanin hyperpigmentation Caridad Flynn [employer] 05/22/2021 D48.5 Neoplasm of uncertain behavior o f skin Caridad Flynn, W[employer] OPERATOR [employer] 05/22/2021 L82.1 Other seborrheic keratosis Aylins a Valentin Flynn, [employer]ATOR [employer] 05/22/2021 D22.5 Melanocytic nevi of trunk Caridad Flynn, [employer]PERATOR [employer] 05/22/2021 L72.3 Sebaceous cyst Caridad nino, [employer]ATOR [employer] 05/22/2021 L21.8 Other seborrheic dermatitis Aylin sa Valentin Flynn, [employer]PERATOR [employer] 05/22/2021 D22.71 Melanocytic nevi of right lower limb, including hip Caridad Flynn, [employer]ATOR [employer] 05/22/2021 D22.72 Melanocytic nevi of left lower l imb, including hip Caridad Flynn, [employer]ATOR [employer] 05/22/2021 Z12.83 Encounter for screening for yovani gnant neoplasm of skin SEBASTIEN Romero Plan of Treatment Future Appointment(s):* 07/19/2021 3:30 pm - SEBASTIEN Romero at Main Office * 05/22/2022 11:15 am - SEBASTIEN Romero at Main Office 07/08/2021 - Caridad Flynn, SAWYER-C* L71.0 Perioral dermatitis* New Medication:* Fluticasone Propionate 0.05 % - apply to perioral area sparingly twice a day as needed * Comments:* Minimal improvement; remaining could be irritant dermatitis.Start Fluticasone 0.05% cream to perioral area BID x 1 - 2 weeks. Discussed topical steroid safety.Discussed not to overuse.Decrease Minocycline 100 mg to once daily by mouth x 1 additional week, then D/C.Reviewed S/E including headaches, GI upset, vertigo and candidiasis.Hold Metrogel 1% to face daily.Call with problems. * Follow up:* 1 week - perioral dermatitis follow up Functional Status Description No Information Available Mental Status Description No Information Available Referrals Description No Information Available"
--- OUTSIDE RECORDS SUMMARY | 2021-10-13 19:07 | CCD ---
Author Author [facility] Organization [facility] Address Unknown Phone Unavailable Care Team Providers Care Rock Duster Name Role Phone Barreto, Valentin Caridad POCKET SECRETARY ASSEMBLER-C Unavailable Unavailable Barreto, D Caridad POCKET SECRETARY ASSEMBLER-C Unavailable Unavailable Barreto, D Caridad POCKET SECRETARY ASSEMBLER-C Unavailable Unavailable Barreto, D Caridad POCKET SECRETARY ASSEMBLER-C Unavailable Unavailable Barreto, D Caridad POCKET SECRETARY ASSEMBLER-C Unavailable Unavailable Barreto, D Caridad POCKET SECRETARY ASSEMBLER-C Unavailable Unavailable Barreto, D Caridad POCKET SECRETARY ASSEMBLER-C Unavailable Unavailable SEMEL, Juan Ramon SWANN MD Unavailable Unavailable SEMEL, Juan Ramon SWANN MD Unavailable Unavailable SEMEL, Juan Ramon SWANN MD Unavailable Unavailable SEMEL, Juan Ramon SWANN MD Unavailable Unavailable SEMEL, Juan Ramon SWANN MD Unavailable Unavailable SEMEL, Juan Ramon SWANN MD Unavailable Unavailable SEMEL, Juan Ramon SWANN MD Unavailable Unavailable SEMEL, Juan Ramon SWANN MD Unavailable Unavailable SEMEL, Juan Ramon SWANN MD Unavailable Unavailable SEMEL, Juan Ramon SWANN MD Unavailable Unavailable SEMEL, Juan Ramon SWANN MD Unavailable Unavailable SEMEL, Juan Ramon SWANN MD Unavailable Unavailable SEMEL, Juan Ramon SWANN MD Unavailable Unavailable SEMEL, Juan Ramon SWANN MD Unavailable Unavailable SEMEL, Juan Ramon SWANN MD Unavailable Unavailable SEMEL, Juan Ramon SWANN MD Unavailable Unavailable SEMEL, Juan Ramon SWANN MD Unavailable Unavailable SEMEL, Juan Ramon SWANN MD Unavailable Unavailable SEMEL, Juan Ramon SWANN MD Unavailable Unavailable SEMEL, Juan Ramon SWANN MD Unavailable Unavailable SEMEL, Juan Ramon SWANN MD Unavailable Unavailable SEMEL, Juan Ramon SWANN MD Unavailable Unavailable SEMEL, Juan Ramon SWANN MD Unavailable Unavailable SEMEL, Juan Ramon SWANN MD Unavailable Unavailable SEMEL, Juan Ramon SWANN MD Unavailable Unavailable SEMEL, Juan Ramon SWANN MD Unavailable Unavailable SEMEL, Juan Ramon SWANN MD Unavailable Unavailable SEMEL, Juan Ramon SWANN MD Unavailable Unavailable SEMEL, Juan Ramon SWANN MD Unavailable Unavailable SEMEL, Juan Ramon SWANN MD Unavailable Unavailable SEMEL, Juan Ramon SWANN MD Unavailable Unavailable SEMEL, Juan Ramon SWANN MD Unavailable Unavailable SEMEL, Juan Ramon SWANN MD Unavailable Unavailable SEMEL, Juan Ramon SWANN MD Unavailable Unavailable SEMEL, Juan Ramon SWANN MD Unavailable Unavailable SEMEL, Juan Ramon SWANN MD Unavailable Unavailable SEMEL, Juan Ramon SWANN MD Unavailable Unavailable SEMEL, Juan Ramon SWANN MD Unavailable Unavailable SEMEL, Juan Ramon SWANN MD Unavailable Unavailable SEMEL, Juan Ramon SWANN MD Unavailable Unavailable SEMEL, Juan Ramon SWANN MD Unavailable Unavailable SEMEL, Juan Ramon SWANN MD Unavailable Unavailable SEMEL, Juan Ramon SWANN MD Unavailable Unavailable SEMEL, Juan Ramon SWANN MD Unavailable Unavailable SEMEL, Juan Ramon SWANN MD Unavailable Unavailable SEMEL, Juan Ramon SWANN MD Unavailable Unavailable SEMEL, Juan Ramon SWANN MD Unavailable Unavailable SEMEL, Juan Ramon SWANN MD Unavailable Unavailable SEMEL, Juan Ramon SWANN MD Unavailable Unavailable SEMEL, Juan Ramon SWANN MD Unavailable Unavailable SEMEL, Juan Ramon SWANN MD Unavailable Unavailable SEMEL, Juan Ramon SWANN MD Unavailable Unavailable SEMEL, Juan Ramon SWANN MD Unavailable Unavailable SEMEL, Juan Ramon SWANN MD Unavailable Unavailable SEMEL, Juan Ramon SWANN MD Unavailable Unavailable SEMEL, Juan Ramon SWANN MD Unavailable Unavailable SEMEL, Juan Ramon SWANN MD Unavailable Unavailable SEMEL, Juan Ramon SWANN MD Unavailable Unavailable SEMEL, Juan Ramon SWANN MD Unavailable Unavailable SEMEL, Juan Ramon SWANN MD Unavailable Unavailable SEMEL, Juan Ramon SWANN MD Unavailable Unavailable SEMEL, Juan Ramon SWANN MD Unavailable Unavailable SEMEL, Juan Ramon SWANN MD Unavailable Unavailable SEMEL, Juan Ramon SWANN MD Unavailable Unavailable SEMEL, Juan Ramon SWANN MD Unavailable Unavailable SEMEL, Juan Ramon SWANN MD Unavailable Unavailable SEMEL, Juan Ramon SWANN MD Unavailable Unavailable SEMEL, Juan Ramon SWANN MD Unavailable Unavailable SEMEL, Juan Ramon SWANN MD Unavailable Unavailable SEMEL, Juan Ramon SWANN MD Unavailable Unavailable SEMEL, Juan Ramon SWANN MD Unavailable Unavailable SEMEL, Juan Ramon SWANN MD Unavailable Unavailable SEMEL, Juan Ramon SWANN MD Unavailable Unavailable SEMEL, Juan Ramon SWANN MD Unavailable Unavailable SEMEL, Juan Ramon SWANN MD Unavailable Unavailable SEMEL, Juan Ramon SWANN MD Unavailable Unavailable SEMEL, Juan Ramon SWANN MD Unavailable Unavailable SEMEL, Juan Ramon SWANN MD Unavailable Unavailable SEMEL, Juan Ramon SWANN MD Unavailable Unavailable SEMEL, Juan Ramon SWANN MD Unavailable Unavailable SEMEL, Juan Ramon SWANN MD Unavailable Unavailable SEMEL, Juan Ramon SWANN MD Unavailable Unavailable SEMEL, Juan Ramon SWANN MD Unavailable Unavailable SEMEL, Juan Ramon SWANN MD Unavailable Unavailable SEMEL, Juan Ramon SWANN MD Unavailable Unavailable SEMEL, Juan Ramon SWANN MD Unavailable Unavailable SEMEL, Juan Ramon SWANN MD Unavailable Unavailable SEMEL, Juan Ramon SWANN MD Unavailable Unavailable SEMEL, Juan Ramon SWANN MD Unavailable Unavailable SEMEL, Juan Ramon SWANN MD Unavailable Unavailable SEMEL, Juan Ramon SWANN MD Unavailable Unavailable SEMEL, Juan Ramon SWANN MD Unavailable Unavailable SEMEL, Juan Ramon SWANN MD Unavailable Unavailable SEMEL, Juan Ramon SWANN MD Unavailable Unavailable SEMEL, Juan Ramon SWANN MD Unavailable Unavailable SEMEL, Juan Ramon SWANN MD Unavailable Unavailable SEMEL, Juan Ramon SWANN MD Unavailable Unavailable SEMEL, Juan Ramon SWANN MD Unavailable Unavailable SEMEL, Juan Ramon SWANN MD Unavailable Unavailable SEMEL, Juan Ramon SWANN MD Unavailable Unavailable SEMEL, Juan Ramon SWANN MD Unavailable Unavailable SEMEL, Juan Ramon SWANN MD Unavailable Unavailable SEMEL, Juan Ramon SWANN MD Unavailable Unavailable SEMEL, Juan Ramon SWANN MD Unavailable Unavailable SEMEL, Juan Ramon SWANN MD Unavailable Unavailable SEMEL, Juan Ramon SWANN MD Unavailable Unavailable SEMEL, Juan Ramon SWANN MD Unavailable Unavailable SEMEL, Juan Ramon SWANN MD Unavailable Unavailable SEMEL, Juan Ramon SWANN MD Unavailable Unavailable SEMEL, Juan Ramon SWANN MD Unavailable Unavailable SEMEL, Juan Ramon SWANN MD Unavailable Unavailable SEMEL, Juan Ramon SWANN MD Unavailable Unavailable SEMEL, Juan Ramon SWANN MD Unavailable Unavailable SEMEL, Juan Ramon SWANN MD Unavailable Unavailable SEMEL, Juan Ramon SWANN MD Unavailable Unavailable SEMEL, Juan Ramon SWANN MD Unavailable Unavailable SEMEL, Juan Ramon SWANN MD Unavailable Unavailable SEMEL, Juan Ramon SWANN MD Unavailable Unavailable SEMEL, Juan Ramon SWANN MD Unavailable Unavailable SEMEL, Juan Ramon SWANN MD Unavailable Unavailable SEMEL, Juan Ramon SWANN MD Unavailable Unavailable SEMEL, Juan Ramon SWANN MD Unavailable Unavailable Fons, M Nadja POCKET SECRETARY ASSEMBLER Unavailable Unavailable Fons, M Nadja POCKET SECRETARY ASSEMBLER Unavailable Unavailable Fons, M Nadja POCKET SECRETARY ASSEMBLER Unavailable Unavailable Fons, M Nadja POCKET SECRETARY ASSEMBLER Unavailable Unavailable Fons, M Nadja POCKET SECRETARY ASSEMBLER Unavailable Unavailable Fons, M Nadja POCKET SECRETARY ASSEMBLER Unavailable Unavailable Fons, M Nadja POCKET SECRETARY ASSEMBLER Unavailable Unavailable Fons, M Nadja POCKET SECRETARY ASSEMBLER Unavailable Unavailable Fons, M Nadja POCKET SECRETARY ASSEMBLER Unavailable Unavailable Fons, M Nadja POCKET SECRETARY ASSEMBLER Unavailable Unavailable Fons, M Nadja POCKET SECRETARY ASSEMBLER Unavailable Unavailable Fons, M Nadja POCKET SECRETARY ASSEMBLER Unavailable Unavailable Fons, M Nadja POCKET SECRETARY ASSEMBLER Unavailable Unavailable Fons, M Nadja POCKET SECRETARY ASSEMBLER Unavailable Unavailable Fons, M Nadja POCKET SECRETARY ASSEMBLER Unavailable Unavailable Fons, M Nadja POCKET SECRETARY ASSEMBLER Unavailable Unavailable Fons, M Nadja POCKET SECRETARY ASSEMBLER Unavailable Unavailable Fons, M Nadja POCKET SECRETARY ASSEMBLER Unavailable Unavailable Fons, M Nadja POCKET SECRETARY ASSEMBLER Unavailable Unavailable Fons, M Nadja POCKET SECRETARY ASSEMBLER Unavailable Unavailable Fons, M Nadja POCKET SECRETARY ASSEMBLER Unavailable Unavailable Fons, M Nadja POCKET SECRETARY ASSEMBLER Unavailable Unavailable Fons, M Nadja POCKET SECRETARY ASSEMBLER Unavailable Unavailable Fons, M Nadja POCKET SECRETARY ASSEMBLER Unavailable Unavailable Fons, M Nadja POCKET SECRETARY ASSEMBLER Unavailable Unavailable Fons, M Nadja POCKET SECRETARY ASSEMBLER Unavailable Unavailable Fons, M Nadja POCKET SECRETARY ASSEMBLER Unavailable Unavailable Fons, M Nadja POCKET SECRETARY ASSEMBLER Unavailable Unavailable Fons, M Nadja POCKET SECRETARY ASSEMBLER Unavailable Unavailable Fons, M Nadja POCKET SECRETARY ASSEMBLER Unavailable Unavailable Fons, M Nadja POCKET SECRETARY ASSEMBLER Unavailable Unavailable Fons, M Nadja POCKET SECRETARY ASSEMBLER Unavailable Unavailable Fons, M Nadja POCKET SECRETARY ASSEMBLER Unavailable Unavailable Fons, M Nadja POCKET SECRETARY ASSEMBLER Unavailable Unavailable Fons, M Nadja POCKET SECRETARY ASSEMBLER Unavailable Unavailable Fons, M Nadja POCKET SECRETARY ASSEMBLER Unavailable Unavailable Fons, M Nadja POCKET SECRETARY ASSEMBLER Unavailable Unavailable Fons, M Nadja POCKET SECRETARY ASSEMBLER Unavailable Unavailable Fons, M Nadja POCKET SECRETARY ASSEMBLER Unavailable Unavailable Fons, M Nadja POCKET SECRETARY ASSEMBLER Unavailable Unavailable Fons, M Nadja POCKET SECRETARY ASSEMBLER Unavailable Unavailable Fons, M Nadja POCKET SECRETARY ASSEMBLER Unavailable Unavailable Fons, M Nadja POCKET SECRETARY ASSEMBLER Unavailable Unavailable Fons, M Nadja POCKET SECRETARY ASSEMBLER Unavailable Unavailable Fons, M Nadja POCKET SECRETARY ASSEMBLER Unavailable Unavailable Fons, M Nadja POCKET SECRETARY ASSEMBLER Unavailable Unavailable Fons, M Nadja POCKET SECRETARY ASSEMBLER Unavailable Unavailable Fons, M Nadja POCKET SECRETARY ASSEMBLER Unavailable Unavailable Fons, M Nadja POCKET SECRETARY ASSEMBLER Unavailable Unavailable Fons, M Nadja POCKET SECRETARY ASSEMBLER Unavailable Unavailable Fons, M Nadja POCKET SECRETARY ASSEMBLER Unavailable Unavailable Fons, M Nadja POCKET SECRETARY ASSEMBLER Unavailable Unavailable Fons, M Nadja POCKET SECRETARY ASSEMBLER Unavailable Unavailable Valentin Oliver MD Unavailable Unavailable Vaneennahunam, Valentin Wilkerson MD Unavailable Unavailable Vaneennahunam, Valentin Wilkerson MD Unavailable Unavailable Vaneennahunam, Valentin Wilkerson MD Unavailable Unavailable Vanlavell, Valentin Wilkerson MD Unavailable Unavailable Vanlavell, Valentin Wilkerson MD Unavailable Unavailable Vaneenhilton, Valentin Wilkerson MD Unavailable Unavailable Melody, Valentin Wilkerson MD Unavailable Unavailable Melody, Valentin Wilkerson MD Unavailable Unavailable Vanlavell, Valentin Wilkerson MD Unavailable Unavailable VanValentin monte MD Unavailable Unavailable Melody, Valentin Wilkerson MD Unavailable Unavailable VanValentin monte MD Unavailable Unavailable Vanlavell, Valentin Wilkerson MD Unavailable Unavailable VaneenValentin canela MD Unavailable Unavailable VaneenValentin canela MD Unavailable Unavailable VaneenValentin canela MD Unavailable Unavailable Valentin Oliver MD Unavailable Unavailable Valentin Oliver MD Unavailable Unavailable Valentin Oliver MD Unavailable Unavailable Valentin Oliver MD Unavailable Unavailable Valentin Oliver MD Unavailable Unavailable IvelisseamValentin MD Unavailable Unavailable Valentin Oliver MD Unavailable Unavailable Valentin Oliver MD Unavailable Unavailable Valentin Oliver MD Unavailable Unavailable Valentin Oliver MD Unavailable Unavailable Vanarielam, Valentin Wilkerson MD Unavailable Unavailable VaneenenaamValentin MD Unavailable Unavailable Vaneenenaam, Valentin Wilkerson MD Unavailable Unavailable Vaneenenaam, Valentin Wilkerson MD Unavailable Unavailable Vaneenenaam, Valentin Wilkerson MD Unavailable Unavailable Vaneenenaam, Valentin Wilkerson MD Unavailable Unavailable Vaneenenaam, Valentin Wilkerson MD Unavailable Unavailable Vaneenenaam, Valentin Wilkerson MD Unavailable Unavailable Vaneenenaam, Valentin Wilkerson MD Unavailable Unavailable Vaneenenaam, Valentin Wilkerson MD Unavailable Unavailable Vaneenenaam, Valentin Wilkerson MD Unavailable Unavailable Vaneenenaam, Valentin Wilkerson MD Unavailable Unavailable Vaneenenaam, Valentin Wilkerson MD Unavailable Unavailable Vaneenenaam, Valentin Wilkerson MD Unavailable Unavailable Vaneenenaam, Valentin Wilkerson MD Unavailable Unavailable Vaneenenaam, Valentin Wilkerson MD Unavailable Unavailable Vaneenenaam, Valentin Wilkerson MD Unavailable Unavailable Vaneenenaam, Valentin Wilkerson MD Unavailable Unavailable Vaneenenaam, Valentin Wilkerson MD Unavailable Unavailable Vaneenenaam, Valentin Wilkerson MD Unavailable Unavailable SEMEL, Juan Ramon SWANN MD Unavailable Unavailable SEMEL, Juan Ramon SWANN MD Unavailable Unavailable SEMEL, Juan Ramon SWANN MD Unavailable Unavailable SEMEL, Juan Ramon SWANN MD Unavailable Unavailable SEMEL, Juan Ramon SWANN MD Unavailable Unavailable SEMEL, Juan Ramon SWANN MD Unavailable Unavailable SEMEL, Juan Ramon SWANN MD Unavailable Unavailable SEMEL, Juan Ramon SWANN MD Unavailable Unavailable SEMEL, Juan Ramon SWANN MD Unavailable Unavailable SEMEL, Juan Ramon SWANN MD Unavailable Unavailable SEMEL, Juan Ramon SWANN MD Unavailable Unavailable SEMEL, Juan Ramon SWANN MD Unavailable Unavailable SEMEL, Juan Ramon SWANN MD Unavailable Unavailable SEMEL, Juan Ramon SWANN MD Unavailable Unavailable SEMEL, Juan Ramon SWANN MD Unavailable Unavailable SEMEL, Juan Ramon SWANN MD Unavailable Unavailable SEMEL, Juan Ramon SWANN MD Unavailable Unavailable SEMEL, Juan Ramon SWANN MD Unavailable Unavailable SEMEL, Juan Ramon SWANN MD Unavailable Unavailable SEMEL, Juan Ramon SWANN MD Unavailable Unavailable SEMEL, Juan Ramon SWANN MD Unavailable Unavailable SEMEL, Juan Ramon SWANN MD Unavailable Unavailable SEMEL, Juan Ramon SWANN MD Unavailable Unavailable SEMEL, Juan Ramon SWANN MD Unavailable Unavailable SEMEL, Juan Ramon SWANN MD Unavailable Unavailable SEMEL, Juan Ramon SWANN MD Unavailable Unavailable SEMEL, Juan Ramon SWANN MD Unavailable Unavailable SEMEL, Juan Ramon SWANN MD Unavailable Unavailable SEMEL, Juan Ramon SWANN MD Unavailable Unavailable SEMEL, Juan Ramon SWANN MD Unavailable Unavailable SEMEL, Juan Ramon SWANN MD Unavailable Unavailable SEMEL, Juan Ramon SWANN MD Unavailable Unavailable SEMEL, Juan Ramon SWANN MD Unavailable Unavailable SEMEL, Juan Ramon SWANN MD Unavailable Unavailable SEMEL, Juan Ramon SWANN MD Unavailable Unavailable SEMEL, Juan Ramon SWANN MD Unavailable Unavailable SEMEL, Juan Ramon SWANN MD Unavailable Unavailable SEMEL, Juan Ramon SWANN MD Unavailable Unavailable SEMEL, Juan Ramon SWANN MD Unavailable Unavailable SEMEL, Juan Ramon SWANN MD Unavailable Unavailable SEMEL, Juan Ramon SWANN MD Unavailable Unavailable SEMEL, Juan Ramon SWANN MD Unavailable Unavailable SEMEL, Juan Ramon SWANN MD Unavailable Unavailable SEMEL, Juan Ramon SWANN MD Unavailable Unavailable SEMEL, Juan Ramon SWANN MD Unavailable Unavailable SEMEL, Juan Ramon SWANN MD Unavailable Unavailable SEMEL, Juan Ramon SWANN MD Unavailable Unavailable SEMEL, Juan Ramon SWANN MD Unavailable Unavailable SEMEL, Juan Ramon SWANN MD Unavailable Unavailable SEMEL, Juan Ramon SWANN MD Unavailable Unavailable SEMEL, Juan Ramon SWANN MD Unavailable Unavailable SEMEL, Juan Ramon SWANN MD Unavailable Unavailable SEMEL, Juan Ramon SWANN MD Unavailable Unavailable SEMEL, Juan Ramon SWANN MD Unavailable Unavailable SEMEL, Juan Ramon SWANN MD Unavailable Unavailable SEMEL, Juan Ramon SWANN MD Unavailable Unavailable SEMEL, Juan Ramon SWANN MD Unavailable Unavailable SEMEL, Juan Ramon SWANN MD Unavailable Unavailable SEMEL, Juan Ramon SWANN MD Unavailable Unavailable SEMEL, Juan Ramon SWANN MD Unavailable Unavailable SEMEL, Juan Ramon SWANN MD Unavailable Unavailable SEMEL, Juan Ramon SWANN MD Unavailable Unavailable SEMEL, Juan Ramon SWANN MD Unavailable Unavailable SEMEL, Juan Ramon SWANN MD Unavailable Unavailable SEMEL, Juan Ramon SWANN MD Unavailable Unavailable SEMEL, Juan Ramon SWANN MD Unavailable Unavailable SEMEL, Juan Ramon SWANN MD Unavailable Unavailable SEMEL, Juan Ramon SWANN MD Unavailable Unavailable SEMEL, Juan Ramon SWANN MD Unavailable Unavailable SEMEL, Juan Ramon SWANN MD Unavailable Unavailable SEMEL, Juan Ramon SWANN MD Unavailable Unavailable SEMEL, Juan Ramon SWANN MD Unavailable Unavailable SEMEL, Juan Ramon SWANN MD Unavailable Unavailable SEMEL, Juan Ramon SWANN MD Unavailable Unavailable SEMEL, Juan Ramon SWANN MD Unavailable Unavailable SEMEL, Juan Ramon SWANN MD Unavailable Unavailable SEMEL, Juan Ramon SWANN MD Unavailable Unavailable SEMEL, Juan Ramon SWANN MD Unavailable Unavailable SEMEL, Juan Ramon SWANN MD Unavailable Unavailable SEMEL, Juan Ramon SWANN MD Unavailable Unavailable SEMEL, Juan Ramon SWANN MD Unavailable Unavailable SEMEL, Juan Ramon SWANN MD Unavailable Unavailable SEMEL, Juan Ramon SWANN MD Unavailable Unavailable SEMEL, Juan Ramon SWANN MD Unavailable Unavailable SEMEL, Juan Ramon SWANN MD Unavailable Unavailable SEMEL, Juan Ramon SWANN MD Unavailable Unavailable SEMEL, Juan Ramon SWANN MD Unavailable Unavailable SEMEL, Juan Ramon SWANN MD Unavailable Unavailable SEMEL, Juan Ramon SWANN MD Unavailable Unavailable SEMEL, Juan Ramon SWANN MD Unavailable Unavailable SEMEL, Juan Ramon SWANN MD Unavailable Unavailable SEMEL, Juan Ramon SWANN MD Unavailable Unavailable SEMEL, Juan Ramon SWANN MD Unavailable Unavailable SEMEL, Juan Ramon SWANN MD Unavailable Unavailable SEMEL, Juan Ramon SWANN MD Unavailable Unavailable SEMEL, Juan Ramon SWANN MD Unavailable Unavailable SEMEL, Juan Ramon SWANN MD Unavailable Unavailable SEMEL, Juan Ramon SWANN MD Unavailable Unavailable SEMEL, Juan Ramon SWANN MD Unavailable Unavailable SEMEL, Juan Ramon SWANN MD Unavailable Unavailable SEMEL, Juan Ramon SWANN MD Unavailable Unavailable SEMEL, Juan Ramon SWANN MD Unavailable Unavailable SEMEL, Juan Ramon SWANN MD Unavailable Unavailable SEMEL, Juan Ramon SWANN MD Unavailable Unavailable SEMEL, Juan Ramon SWANN MD Unavailable Unavailable SEMEL, Juan Ramon SWANN MD Unavailable Unavailable SEMEL, Juan Ramon SWANN MD Unavailable Unavailable SEMEL, Juan Ramon SWANN MD Unavailable Unavailable SEMEL, Juan Ramon SWANN MD Unavailable Unavailable SEMEL, Juan Ramon SWANN MD Unavailable Unavailable SEMEL, Juan Ramon SWANN MD Unavailable Unavailable SEMEL, Juan Ramon SWANN MD Unavailable Unavailable SEMEL, Juan Ramon SWANN MD Unavailable Unavailable SEMEL, Juan Ramon SWANN MD Unavailable Unavailable SEMEL, Juan Ramon SWANN MD Unavailable Unavailable SEMEL, Juan Ramon SWANN MD Unavailable Unavailable SEMEL, Juan Ramon SWANN MD Unavailable Unavailable SEMEL, Juan Ramon SWANN MD Unavailable Unavailable SEMEL, Juan Ramon SWANN MD Unavailable Unavailable SEMEL, Juan Ramon SWANN MD Unavailable Unavailable SEMEL, Juan Ramon SWANN MD Unavailable Unavailable SEMEL, Juan Ramon SWANN MD Unavailable Unavailable Rafy Wallace MD Unavailable Unavailable Rafy Wallace MD Unavailable Unavailable Rafy Wallace MD Unavailable Unavailable Rafy Wallace MD Unavailable Unavailable Rafy Wallace MD Unavailable Unavailable Rafy Wallace MD Unavailable Unavailable Rafy Wallace MD Unavailable Unavailable Rafy Wallace MD Unavailable Unavailable Rafy Wallace MD Unavailable Unavailable Rafy Wallace MD Unavailable Unavailable Rafy Wallace MD Unavailable Unavailable Rafy Wallace MD Unavailable Unavailable Rafy Wallace MD Unavailable Unavailable Rafy Wallace MD Unavailable Unavailable Rafy Wallace MD Unavailable Unavailable Rafy Wallace MD Unavailable Unavailable Rafy Wallace MD Unavailable Unavailable Rafy Wallace MD Unavailable Unavailable Rafy Wallace MD Unavailable Unavailable Rafy Wallace MD Unavailable Unavailable Rafy Wallace MD Unavailable Unavailable Rafy Wallace MD Unavailable Unavailable Rafy Wallace MD Unavailable Unavailable Rafy Wallace MD Unavailable Unavailable Rafy Wallace MD Unavailable Unavailable Rafy Wallace MD Unavailable Unavailable Rafy Wallace MD Unavailable Unavailable Rafy Wallace MD Unavailable Unavailable Rafy Wallace MD Unavailable Unavailable Rafy Wallace MD Unavailable Unavailable SleRafy goldman MD Unavailable Unavailable SleRafy goldman MD Unavailable Unavailable Rafy Wallace MD Unavailable Unavailable Rafy Wallace MD Unavailable Unavailable Slezka, Vojtech MD Unavailable Unavailable Slezka, Vojtech MD Unavailable Unavailable Slezka, Vojtech MD Unavailable Unavailable Slezka, Vojtech MD Unavailable Unavailable Slezka, Vojtech MD Unavailable Unavailable Slezka, Vojtech MD Unavailable Unavailable Slezka, Vojtech MD Unavailable Unavailable Slezka, Vojtech MD Unavailable Unavailable Slezka, Vojtech MD Unavailable Unavailable Slezka, Vojtech MD Unavailable Unavailable Slezka, Vojtech MD Unavailable Unavailable Slezka, Vojtech MD Unavailable Unavailable Slezka, Vojtech MD Unavailable Unavailable Slezka, Vojtech MD Unavailable Unavailable Slezka, Vojtech MD Unavailable Unavailable Slezka, Vojtech MD Unavailable Unavailable Slezka, Vojtech MD Unavailable Unavailable Slezka, Vojtech MD Unavailable Unavailable Slezka, Vojtech MD Unavailable Unavailable Slezka, Vojtech MD Unavailable Unavailable Slezka, Vojtech MD Unavailable Unavailable Slezka, Vojtech MD Unavailable Unavailable Slezka, Vojtech MD Unavailable Unavailable Slezka, Vojtech MD Unavailable Unavailable Slezka, Vojtech MD Unavailable Unavailable Slezka, Vojtech MD Unavailable Unavailable Re-disclosure Warning The records that you are about to access may contain information from federally-assisted alcohol or drug abuse programs. If such information is present, then the following federally mandated warning applies: This information has been disclosed to you from records protected by federal confidentiality rules (42 CFR part 2). The federal rules prohibit you from making any further disclosure of this information unless further disclosure is expressly permitted by the written consent of the person to whom it pertains or as otherwise permitted by 42 CFR part 2. A general authorization for the release of medical or other information is NOT sufficient for this purpose. The Federal rules restrict any use of the information to criminally investigate or prosecute any alcohol or drug abuse patient.The records that you are about to access may contain highly sensitive health information, the redisclosure of which is protected by Article 27-F of the [facility] Public Health law. If you continue you may have access to information: Regarding HIV / AIDS; Provided by facilities licensed or operated by the [facility] Office of Mental Health; or Provided by the [facility] Office for People With Developmental Disabilities. If such information is present, then the following [facility] mandated warning applies: This information has been disclosed to you from confidential records which are protected by state law. State law prohibits you from making any further disclosure of this information without the specific written consent of the person to whom it pertains, or as otherwise permitted by law. Any unauthorized further disclosure in violation of state law may result in a fine or chcf sentence or both. A general authorization for the release of medical or other information is NOT sufficient authorization for further disc losure. Family History Family Member Name Family Member Gender Family Member Status Date o f Status Description Data Source(s) Unknown Unknown Problem [facility] ([facility]) Encounters Encounter Providers Location Date Indications Data Source(s ) Office Visit Attender: HUE TOUSSAINT MD Main Office 09/25/2021 09 :15:00 AM EST [facility] ([facility]) Outpatient Referrer: HUE TOUSSAINT MD 09/12/2021 10:16:08 AM EDT [facility] Center Outpatient Attender: HUE TOUSSAINT MD Main Office 09/12/2021 09:00:0 0 AM EDT [facility] ([facility]) Unknown [address] [facility] [address] [address] 09/04/2021 12:00:00 AM EDT eCW1 ([facility]) Unknown [address] [facility] [address] [address] 09/04/2021 12:00:00 AM EDT eCW1 ([facility]) Outpatient [address] [facility] [facility] [address] [address] 09/03/2021 12:00:00 AM EDT eCW1 ([facility]) Unknown [address] [facility] [facility] [address] [address] 09/02/2021 12:00:00 AM EDT eCW1 ([facility]) Outpatient Attender: Nadja BLACKWELL-SJADELE 12:00:00 AM EDT - 08/02/2021 11:29:20 AM EDT [facility] Outpatient Attender: Caridad CROWE Main Office 07/19/2021 03:30:00 PM EDT [facility] ([facility] Outpatient Attender: Caridad Longoriata WHITESIDEP-C Main Office 07/08/2021 11:45:00 AM EDT [facility] ([facility]) Outpatient Attender: Caridad Longoriata WHITESIDEP-C Main Office 06/13/2021 03:15:00 PM EDT [facility] ([facility]) Outpatient Attender: Caridad 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 [address] [place] [address] 05/10/2021 12:00:00 AM EDT eCW1 ([facility]) [place] [address] [facility] [place] [address] 04/04/2021 12:00:00 AM EDT eCW1 ([facility]) Unknown [address] [facility] [place] [address] 03/15/2021 12:00:00 AM EDT eCW1 ([facility]) [place] [address] [facility] [place] [address] 03/13/2021 12:00:00 AM EDT eCW1 ([facility]) Outpatient [address] [facility] [place] [address] 03/07/2021 12:00:00 AM EDT eCW1 ([facility]) Outpatient [address] [facility] [place] [address] 02/27/2021 12:00:00 AM EDT eCW1 ([facility]) Unknown [address] [facility] [place] [address] 02/04/2021 12:00:00 AM EDT eCW1 ([facility]) OFFICE OUTPATIENT VISIT 15 MINUTES Attender: Valentin arriaga MD Physical Therapy 01/28/2021 03:15:00 PM EDT [facility] ([facility]) Outpatient Attender: Nadja GIBBONSP.MATHEWP 1 12:00:00 AM EDT - 01/25/2021 01:28:17 PM EDT [facility] Outpatient Attender: Nadja BLACKWELL-SJP.ZHANE 0 12:00:00 AM EST - 10/26/2020 03:39:24 PM EST [facility] Outpatient Attender: Rafy BLACKWELL-SJP.ZHANE 09/09 12:00:00 AM EST - 09/26/2020 11:32:04 AM EST [facility] [place] [address] [facility] [place] [address] 09/13/2020 12:00:00 AM EST eCW1 ([facility]) Outpatient Referrer: Nadja BLACKWELL-SJP.ZHANE 09/04/2020 12:00:00 AM EDT [facility] Unknown [address] [facility] [place] [address] 08/16/2020 12:00:00 AM EDT eCW1 ([facility]) Outpatient Attender: Nadja BLACKWELL-SJP.ZHANE 0 11:22:43 AM EDT - 2020 12:04:44 PM EDT [facility] Immunizations Vaccine Date Status Description Data Source(s) COVID-19 VACCINE Vdancer 12/30/2020 12:00:00 AM EST completed [facility] Vaccine Series Complete: YESThis Data wa s Submitted to [facility] Via [facility]. COVID-19 VACCINE Pfizer 12/09/2020 12:00:00 AM EST completed [facility] Vaccine Series Complete: NOThis Data was Submitted to [facility] Via [employer]. Medications Medication Brand Name Start Date Product Form Dose Route Admi nistrative Instructions Pharmacy Instructions Status Indications Reaction Description Data Source(s) Prednisone 20 MG Oral Tablet predniSONE 20 MG predniSONE 20 MG 09/03/2021 12:00:00 AM EDT active predniSO NE 20 MG eCW1 ([facility]) Ondansetron 4 MG Oral Tablet Ondansetron HCl 4 MG Ondansetro n HCl 4 MG 09/03/2021 12:00:00 AM EDT active Ondansetron HCl 4 MG eCW1 ([facility]) Sumatriptan 100 MG Oral Tablet SUMAtriptan Succinate 1 00 MG SUMAtriptan Succinate 100 MG 09/03/2021 12:00:00 AM EDT a ctive SUMAtriptan Succinate 100 MG eCW1 ([facility]) Ondansetron 4 MG Oral Tablet Ondansetron HCl 4 MG Ondansetro n HCl 4 MG 09/03/2021 12:00:00 AM EDT active Ondansetron HCl 4 MG eCW1 ([facility]) Prednisone 20 MG Oral Tablet predniSONE 20 MG predniSONE 20 MG 09/03/2021 12:00:00 AM EDT active predniSO NE 20 MG eCW1 ([facility]) Ondansetron 4 MG Oral Tablet Ondansetron HCl 4 MG Ondansetro n HCl 4 MG 09/03/2021 12:00:00 AM EDT active Ondansetron HCl 4 MG eCW1 ([facility]) Prednisone 20 MG Oral Tablet predniSONE 20 MG predniSONE 20 MG 09/03/2021 12:00:00 AM EDT active predniSO NE 20 MG eCW1 ([facility]) Ondansetron 4 MG Oral Tablet Ondansetron HCl 4 MG Ondansetro n HCl 4 MG 09/03/2021 12:00:00 AM EDT active Ondansetron HCl 4 MG eCW1 ([facility]) Sumatriptan 100 MG Oral Tablet SUMAtriptan Succinate 1 00 MG SUMAtriptan Succinate 100 MG 09/03/2021 12:00:00 AM EDT a ctive SUMAtriptan Succinate 100 MG eCW1 ([facility]) Prednisone 20 MG Oral Tablet predniSONE 20 MG predniSONE 20 MG 09/03/2021 12:00:00 AM EDT active predniSO NE 20 MG eCW1 ([facility]) Sumatriptan 100 MG Oral Tablet SUMAtriptan Succinate 1 00 MG SUMAtriptan Succinate 100 MG 09/03/2021 12:00:00 AM EDT a ctive SUMAtriptan Succinate 100 MG eCW1 ([facility]) Sumatriptan 100 MG Oral Tablet SUMAtriptan Succinate 1 00 MG SUMAtriptan Succinate 100 MG 09/03/2021 12:00:00 AM EDT a ctive SUMAtriptan Succinate 100 MG eCW1 ([facility]) Ketoconazole 20 MG/ML Topical Cream ketoconazole (NIZO RAL) 2 % cream ketoconazole (NIZORAL) 2 % cream 07/31/2021 12:00:00 AM EDT 1 {a pplication} Topical active Apply 1 application topically as needed [facility] Ketoconazole 20 MG/ML Topical Cream Ketoconazole 07/19/2021 12:00:00 AM EDT active [facility] Fluticasone propionate 0.5 MG/ML Topical Cream Fluticasone P ropionate 07/08/2021 12:00:00 AM EDT active M [facility] ([facility]) Minocycline 100 MG Oral Capsule Minocycline HCL 06/13/2021 12:00:00 A M EDT ORAL completed [facility] ([facility]) 100 mg 06/13/2021 12:00:00 AM EDT capsule 60 TAKE ONE CAPSULE BY MOUTH TWICE A DAY TAKE ONE CAPSULE BY MOUTH TWICE A DAY SOLD: 06/14/2021 [facility] Metronidazole 0.01 MG/MG Topical Gel [MetroGel] Metrogel 05/22/2021 12:00:00 AM EDT active [facility] ([facility]) 10 mg 04/17/2021 12:00:00 AM EDT capsule 90 TAKE ONE CAPSULE BY MOUTH THREE TIMES A DAY TAKE ONE CAPSULE BY MOUTH THREE TIMES A DAY SOLD: 04/17/2021 [facility] SUPREP BOWEL PREP KIT 17.5-3.13-1.6 gram SODIUM, POTASSIUM,M AG SULFATES 04/16/2021 12:00:00 AM EDT recon soln 354 FOLLO W OFFICE INSTRUCTIONS PROVIDED, NO SOLID FOOD, CLEAR LIQUIDS ONLY FOLLOW OFFICE INSTRUCTIONS PROVIDED, NO SOLID FOOD, CLEAR LIQUIDS ONLY SOLD: 04/17/2021 [facility] 4 gram 04/05/2021 12:00:00 AM EDT powder in packet 30 MIX 1 PACKET WITH WATER OR NON-CARBONATED DRINK AND TAKE BY MOUTH ONCE DAILY MIX 1 PACKET WITH WATER OR NON-CARBONATED DRINK AND TAKE BY MOUTH ONCE DAILY SOLD: 04/07/2021 [facility] Cholestyramine Resin 66.7 MG/ML Oral Suspension Choles tyramine 4 GM Cholestyramine 4 GM 04/04/2021 12:00:00 AM EDT 1.0 {packet_mixed_with_water_or_non-carbonated_drink} active Cholestyramine 4 GM eCW1 ([facility]) Cholestyramine Resin 66.7 MG/ML Oral Suspension Choles tyramine 4 GM Cholestyramine 4 GM 04/04/2021 12:00:00 AM EDT 1.0 {packet_mixed_with_water_or_non-carbonated_drink} suspended Cholestyramine 4 GM eCW1 ([facility]) Cholestyramine Resin 66.7 MG/ML Oral Suspension Choles tyramine 4 GM Cholestyramine 4 GM 04/04/2021 12:00:00 AM EDT 1.0 {packet_mixed_with_water_or_non-carbonated_drink} suspended Cholestyramine 4 GM eCW1 ([facility]) Cholestyramine Resin 66.7 MG/ML Oral Suspension Choles tyramine 4 GM Cholestyramine 4 GM 04/04/2021 12:00:00 AM EDT 1.0 {packet_mixed_with_water_or_non-carbonated_drink} suspended Cholestyramine 4 GM eCW1 ([facility]) Cholestyramine Resin 66.7 MG/ML Oral Suspension Choles tyramine 4 GM Cholestyramine 4 GM 04/04/2021 12:00:00 AM EDT 1.0 {packet_mixed_with_water_or_non-carbonated_drink} suspended Cholestyramine 4 GM eCW1 ([facility]) Cholestyramine Resin 66.7 MG/ML Oral Suspension Choles tyramine 4 GM Cholestyramine 4 GM 04/04/2021 12:00:00 AM EDT 1.0 {packet_mixed_with_water_or_non-carbonated_drink} suspended Cholestyramine 4 GM eCW1 ([facility]) Fluoxetine 40 MG Oral Capsule FLUoxetine (PROZAC) 40 M G capsule FLUoxetine (PROZAC) 40 MG capsule 11/04/2020 12:00:00 AM EST 40 mg Oral active Take 40 mg by mouth daily [facility] 25 mg 10/27/2020 12:00:00 AM EST tablet 90 TAKE ONE TABLET BY MOUTH EVERY DAY TAKE ONE TABLET BY MOUTH EVERY DAY SOLD: 10/27/2020 [facility] Hydrochlorothiazide 25 MG Oral Tablet hy drochlorothiazide (HYDRODIURIL) 25 MG tablet hydrochlorothiazide (HYDRODIURIL) 25 MG tablet 12:00:00 AM EST 25 mg Oral active Take 1 tablet (25 mg total) by mouth daily [facility] Hydrochlorothiazide 25 MG Oral Tablet hy drochlorothiazide (HYDRODIURIL) 25 MG tablet hydrochlorothiazide (HYDRODIURIL) 25 MG tablet 12:00:00 AM EST 25 mg Oral aborted Take 1 tablet (2 5 mg total) by mouth daily [facility] 25 mg 09/26/2020 12:00:00 AM EST tablet 30 TAKE ONE TABLET BY MOUTH EVERY DAY TAKE ONE TABLET BY MOUTH EVERY DAY SOLD: 09/26/2020 [employer] Hydrochlorothiazide 25 MG Oral Tablet hy drochlorothiazide (HYDRODIURIL) 25 MG tablet hydrochlorothiazide (HYDRODIURIL) 25 MG tablet 12:00:00 AM EST 25 mg Oral aborted Take 1 tablet (2 5 mg total) by mouth daily [facility] Hydrocortisone 10 MG/ML Topical Cream hydrocortisone 1 % cream hydrocortisone 1 % cream 09/14/2020 12:00:00 AM EST 1 {application} Topical active Apply 1 application topically as needed [facility] valacyclovir 1000 MG Oral Tablet valACYclovir (VALTREX ) 1000 MG tablet valACYclovir (VALTREX) 1000 MG tablet 07/19/2020 12:00:00 AM EDT aborted as needed [facility] pantoprazole 40 MG Delayed Release Oral Tablet PANTOPRAZOLE SODIUM 07/13/2020 12:00:00 AM EDT tablet,delayed release (DR/EC) 90 T GOYO ONE TABLET BY MOUTH EVERY DAY TAKE ONE TABLET BY MOUTH EVERY DAY SOLD: 10/11/2020 [employer] pantoprazole 40 MG Delayed Release Oral Tablet PANTOPRAZOLE SODIUM 07/13/2020 12:00:00 AM EDT tablet,delayed release (DR/EC) 90 T GOYO ONE TABLET BY MOUTH EVERY DAY TAKE ONE TABLET BY MOUTH EVERY DAY SOLD: 01/17/2021 [facility] Ibuprofen 800 MG Oral Tablet ibuprofen (ADVIL,MOTRIN) 800 MG tablet ibuprofen (ADVIL,MOTRIN) 800 MG tablet 06/21/2019 12:00:00 AM EDT 800 mg Oral aborted Take 800 mg by mouth as needed S [facility] Multiple Minerals-Vitamins (CALCIUM & VIT D3 BONE HEALTH PO) 1000 mg Oral aborted Take 1,000 mg by mouth da dana [facility] Fluoxetine 20 MG Oral Capsule FLUoxetine (PROZAC) 20 M G capsule FLUoxetine (PROZAC) 20 MG capsule 20 mg Oral aborted T goyo 20 mg by mouth daily [facility] Insurance Providers Payer name Policy type / Coverage type Policy ID Covered green party ID Covered green party's relationship to noe Policy Noe Plan Information [id number] Spo [id number] [facility] [place] [id number] MEDICARE [id number] [place] [id number] MEDICARE A [id number] Self [id number] MEDICARE [id number] xxxxxxxxxxx [id number] MEDICARE [id number] [place] [id number] A MEDICARE [id number] SP [id number] A FOR LIFE [id number] [facility] [id number] MEDICARE [id number] SP [id number] A [id number] xxxxxxxxx [id number] [facility] [place] [id number] FOR LIFE [id number] [facility] [id number] FOR LIFE U [id number] Self [id number] FOR LIFE U [id number] Self [id number] MEDICARE A [id number] Self [id number] ANSI-Medicare Part B [id number] ANSI-Commercial [id number] ANSI-Medicare Part B [id number] ANSI-Medicare Part B [id number] ANSI-Commercial [id number] ANSI-Commercial [id number] ANSI-Medicare Part B [id number] ANSI-Commercial [id number] ANSI-Medicare Part B [id number] ANSI-Medicare Part B [id number] ANSI-Commercial [id number] ANSI-Medicare Part B [id number] ANSI-Commercial [id number] ANSI-Commercial [id number] ANSI-Medicare Part B [id number] ANSI-Commercial [id number] ANSI-Medicare Part B [id number] ANSI-Commercial [id number] ANSI-Medicare Part B [id number] ANSI-Medicare Part B [id number] ANSI-Commercial [id number] MEDICARE C [id number] S [id number] A For Life S [facility] Part B [id number] Self [id number] Medicare Natl Gov't Servi Medicare Primary [id number] Self [id number] [facility] [id number] 2 [id number] PI PI MEDICARE PI PI FOR LIFE [id number] [id number] [facility] [place] [facility] O [id number] S [id number] MEDICARE [id number] SP [id number] E91 [id number] FOR LIFE [id number] HU2 [id number] MEDICARE [id number] SP [id number] A [facility] [id number] 2 [id number] MEDICARE C [id number] S [id number] E91 FOR LIFE O [id number] S [id number] [place] [facility] O [id number] S [id number] ANSI-Commercial [id number] ANSI-Medicare Part B [id number] ANSI-Medicare Part B [id number] ANSI-Commercial [id number] ANSI-Commercial [id number] [facility]-Medicare Part B [id number] ANSI-Commercial [id number] Problems, Conditions, and Diagnoses Code Display Name Description Problem Type Effective Dates Data Source(s) E78.5 Hyperlipidemia, unspecified Hyperlipidemia, unspecifie d Diagnosis 08/02/2021 10:45:59 AM EDT [facility] R06.00 Dyspnea, unspecified Dyspnea, unspecified Diagnosis 08/02/2021 10:45:59 AM EDT [facility] I25.10 Atherosclerotic heart diseas e of [place] coronary artery without angina pectoris Atherosclerotic heart disease of [place] Diagnosis 08/02/2021 10:45:59 AM EDT [facility] I10 Essential (primary) hypertension Essential (primary) h ypertension Diagnosis 08/02/2021 10:45:59 AM EDT [facility] R53.83 Other fatigue Other fatigue Diagnosis 10/26/2020 01:57:05 PM EST [facility] [id number] Pure hypercholesterolemia Pure hypercholesterolemia Pr oblem 09/12/2021 12:00:00 AM EDT [facility] ([facility]) [id number] Coronary arteriosclerosis Coronary arteriosclerosis Pr oblem 09/12/2021 12:00:00 AM EDT [facility] ([facility]) G44.52 [id number] New daily persistent headache Problem 09/03/2021 12:00:00 AM EDT eCW1 ([facility]) I10 Essential hypertension Essential hypertension [id number] 10/26/2020 12:00:00 AM [facility] Surgeries/Procedures Procedure Description Date Indications Data Source(s) OFFICE OUTPATIENT NEW 45 MINUTES 09/12/2021 12:00:00 A M EDT [facility] ([facility]) POCT AMB EKG <td>POCT AMB EKG</td><td>Rou brett</td><td>08/02/2021 12:11 PM EDT</td><td> Essential hypertension</td><td> </td> 08/02/2021 12:11:00 PM EDT Essential hypertension [facility] Essential hypertension OFFICE OUTPATIENT VISIT 25 MINUTES 07/19/2021 12:00:00 AM EDT [facility] ([facility]) OFFICE OUTPATIENT VISIT 25 MINUTES 07/08/2021 12:00:00 AM EDT [facility] ([facility]) OFFICE OUTPATIENT VISIT 25 MINUTES 06/13/2021 12:00:00 AM EDT [facility] ([facility]) Shave Biopsy Of Skin, Single Lesion 05/22/2021 12:00:0 0 AM EDT [facility] ([facility]) OFFICE OUTPATIENT NEW 45 MINUTES 05/22/2021 12:00:00 A M EDT [facility] ([facility]) X-Ray Hip Unilateral With Pelvis 2-3 Views 01/28/2021 12:00:00 AM EDT [facility] ([facility]) Results ID Date Data Source [id number] 09/18/2021 11:53:00 AM EST [facility] ([facility]) Name Value Range Interpretation Code Description Data Millie rce(s) Supporting Document(s) Surgical pathology study Laboratory test result [facility] ([facility]) [place] [address] Surgical Pathology Report Patient Name:WHITNEY PRESCOTT Patient [...] submitted as A1. Temporal artery biopsy protocol. sm peace/ran Reported: 09/24/2021 11:50 Electronically Signed Out By Emily Gray MD [facility] [address] [place] [address] [facility] ICD code: R51.9 CPT code: A: 92420C, 39909O Technical component performed at [facility], [facility], Histopathology, [address] [place] [address], [address]. Reported at [facility], [address], [place], [address]. This report may include immunohistochemical or in-situ hybridization results. Testing was developed and the performance characteristics determined by [facility] as required by CLIA '88. The FDA has determined that approval for specific use is not necessary for clinical use. The quality of Hematoxylin and Eosin stains and as applicable, for all immunohistochemical and/or special stains, including positive and negative controls, were reviewed and considered appropriate. ID Date Data Source [id number] 09/12/2021 10:37:00 [facility] IV CONTRASTCLINICAL HISTORY: Headaches.COMPARISON: None available.TECHNIQUE: Axial images of the brain from the skull base to the vertex.FINDINGS: There is no evidence of acute hemorrhage, infarct, or mass lesion. There are patchy hypodensities in the cerebral white matter bilaterally which are nonspecific but likely related to chronic microvascular changes. There is age-appropriate generalized parenchymal volume loss with associated prominence of the ventricles and extra-axial CSF spaces. There is no acute fracture. The paranasal sinuses and mastoid air cells are clear.IMPRESSION: No acute intracranial abnormality.Dictated by: SHILOH BHAT on 1 Transcribed by: disha on 09/12/2021 10:59 AMCDS G code: ,CDS Modifier: ,cc: Name Value Range Interpretation Code Description Data Millie rce(s) Supporting Document(s) ID Date Data Source [id number] 05/22/2021 12:06:00 PM EDT [facility] ([facility]) Name Value Range Interpretation Code Description Data Millie rce(s) Supporting Document(s) Laboratory test finding (navigational concept) Laboratory test result [facility] ([facility]) LN2 any remaining Laboratory test finding (navigational concept) Laboratory test result [facility] ([facility]) LN2 any remaining ID Date Data Source [id number] 05/22/2021 12:06:00 PM EDT [facility] ([facility]) Name Value Range Interpretation Code Description Data Millie rce(s) Supporting Document(s) Laboratory test finding (navigational concept) Laboratory test result [facility] ([facility]) ID Date Data Source GASTROINTESTINAL GI PANEL (GIPANEL) 02/28/2021 12:00:00 AM EDT eCW1 ([facility]) Name Value Range Interpretation Code Description Data Millie rce(s) Supporting Document(s) This Gastrointestinal PCR Panel detects the following bacteria, GASTROINTESTINAL (GI) PANEL eCW1 ([facility]) ID Date Data Source FREE T4 & TSH PANEL 02/27/2021 12:00:00 AM EDT eCW1 ([facility]) Name Value Range Interpretation Code Description Data Millie rce(s) Supporting Document(s) 1.04 0.76-1.46 FREE T4 eCW1 ([facility]) 2.220 0.358-3.740 THYROID STIMULATING HORM ONE eCW1 ([facility]) ID Date Data Source Comprehensive Metabolic Profile (CMP) 02/27/2021 12:00:00 AM EDT eCW1 ([facility]) Name Value Range Interpretation Code Description Data Millie rce(s) Supporting Document(s) 87 70-100 GLUCOSE, FASTING eCW1 ([facility]) 12 7-18 BLOOD UREA NITROGEN eCW1 ([facility]) 0.81 0.55-1.30 CREATININE FOR GFR eCW1 ([facility]) > 60.0 >39 GLOMERULAR FILTRATION RATE eCW 1 ([facility]) 106 98-107 CHLORIDE LEVEL eCW1 ([facility]) 140 136-145 SODIUM LEVEL eCW1 ([facility]) 5.4 3.5-5.1 POTASSIUM SERUM eCW1 ([facility]) 29 21-32 CARBON DIOXIDE LEVEL eCW1 ([facility]) 32 12-78 ALT/SGPT eCW1 ([facility]) 9.4 8.8-10.2 CALCIUM LEVEL eCW1 ([facility]) 19 7-37 AST/SGOT eCW1 ([facility]) 83 45-117 ALKALINE PHOSPHATASE eCW1 ([facility]) 0.8 0.2-1.0 BILIRUBIN,TOTAL eCW1 ([facility]) 7.3 6.4-8.2 TOTAL PROTEIN eCW1 ([facility]) 4.1 3.2-5.2 ALBUMIN eCW1 ([facility]) 1.3 1.2-2.2 ALBUMIN/GLOBULIN RATIO eCW1 ([facility]) ID Date Data Source CBC with Differential 02/27/2021 12:00:00 AM EDT eCW1 ([facility]) Name Value Range Interpretation Code Description Data Millie rce(s) Supporting Document(s) 8.2 4.0-10.0 WHITE BLOOD COUNT eCW1 ([facility]) 13.5 12.0-15.5 HEMOGLOBIN eCW1 ([facility]) 4.33 4.00-5.40 RED BLOOD COUNT eCW1 ([facility]) 41.5 36.0-47.0 HEMATOCRIT eCW1 ([facility]) 95.8 80.0-96.0 MEAN CORPUSCULAR VOLUME e CW1 ([facility]) 31.2 27.0-33.0 MEAN CORPUSCULAR HEMOGLOB IN eCW1 ([facility]) 218 150-450 PLATELET COUNT, AUTOMATED eCW1 ([facility]) 32.5 32.0-36.5 MEAN CORPUSCULAR HGB CONC eCW1 ([facility]) 12.8 11.5-14.5 RED CELL DISTRIBUTION WID TH eCW1 ([facility]) 69.2 36.0-66.0 NEUTROPHILS % eCW1 ([facility]) 21.8 24.0-44.0 LYMPH % eCW1 ([facility]) 6.8 2.0-8.0 MONO % eCW1 ([facility]) 1.6 0.0-3.0 EOS % eCW1 ([facility]) 5.7 1.5-8.5 NEUTROPHILS # eCW1 ([facility]) 0.4 0.0-1.0 BASO % eCW1 ([facility]) 1.8 1.5-5.0 LYMPH # [facility]CW1 [facility] [facility] 0.6 0.0-0.8 MONO # eCW1 ([facility]) 0.1 0.0-0.5 EOS # eCW1 ([facility]) 0.0 0.0-0.2 BASO # eCW1 ([facility]) ID Date Data Source [id number] 01/30/2021 08[facility]17[facility] Name Date of Age Gend*PT [id number] Whitney Prescott 1950 70 years F ---PT Location Admission Date/Time Visit ID Attending Provider --- --- --- --- EPI ID CSN Admitting Provider [id number] ---Addended by: NADJA BYRNE on: 01/30/2021 08:17 AM Modules accepted: Level of Service Name Value Range Interpretation Code Description Data Millie rce(s) Supporting Document(s) ID Date Data Source [id number] 09/04/2020 03:03:46 PM EDT [facility] Name Value Range Interpretation Code Description Data Millie rce(s) Supporting Document(s) &PDF [facility] KRKUZn2zTkEMPjYh56/LWVkcEURns1SwICnuMMq4LCuxDMJhO0HgcBouQR6BIC7AABwkXZZMQfrHBM7s yKE [file] AgICAgICAgICAgICAgICAgICAgICAgICAgICAgICAg ICAgICAgICAgICAgICAgICAgICAgICAgICAgICAgICAgICAgICAgICAgICAgICAgICAgICAgICAgICAg ICAgICAgDQogICAgICAgICAgICAgICAgICAgICAgICAgICAgICAgICAgICAgICAgICAgICAgICAgICAg ICAgICAgICAgICAgICAgICAgICAgICAgICAgICAgIC AgICAgICAgICAgICAgICAgDQogICAgICAgICAgICAgICAgICAgICAgICAgICAgICAgICAgICAgICAgIC AgICAgICAgICAgICAgICAgICAgICAgICAgICAgICAgICAgICAgICAgICAgICAgICAgICAgICAgICAgDQ ogICAgICAgICAgICAgICAgICAgICAgICAgICAgICAg ICAgICAgICAgICAgICAgICAgICAgICAgICAgICAgICAgICAgICAgICAgICAgICAgICAgICAgICAgICAg ICAgICAgICAgDQogICAgICAgICAgICAgICAgICAgICAgICAgICAgICAgICAgICAgICAgICAgICAgICAg ICAgICAgICAgICAgICAgICAgICAgICAgICAgICAgIC AgICAgICAgICAgICAgICAgICAgDQogICAgICAgICAgICAgICAgICAgICAgICAgICAgICAgICAgICAgIC AgICAgICAgICAgICAgICAgICAgICAgICAgICAgICAgICAgICAgICAgICAgICAgICAgICAgICAgICAgIC AgDQogICAgICAgICAgICAgICAgICAgICAgICAgICAg ICAgICAgICAgICAgICAgICAgICAgICAgICAgICAgICAgICAgICAgICAgICAgICAgICAgICAgICAgICAg ICAgICAgICAgICAgDQogICAgICAgICAgICAgICAgICAgICAgICAgICAgICAgICAgICAgICAgICAgICAg ICAgICAgICAgICAgICAgICAgICAgICAgICAgICAgIC AgICAgICAgICAgICAgICAgICAgICAgDQogICAgICAgICAgICAgICAgICAgICAgICAgICAgICAgICAgIC AgICAgICAgICAgICAgICAgICAgICAgICAgICAgICAgICAgICAgICAgICAgICAgICAgICAgICAgICAgIC AgICAgDQogICAgICAgICAgICAgICAgICAgICAgICAg ICAgICAgICAgICAgICAgICAgICAgICAgICAgICAgICAgICAgICAgICAgICAgICAgICAgICAgICAgICAg IYOwLNEgFBMqQKSmIEAaCJk9H4afLCYpKTCaSA6dOCi9Lw7+AZnNQuNpEZG2wnYvmU2ZVF4bo2WfODpj VLGqe8NfGKh7VJ5LKWZfTDkmWN5DIAqssq1MMXUlCN CfaBRVp5mgRlQiLXF5OOZnSaadBA4DAECnD6nbtiAxCQTmDJYSRNwuPZWKHT6RDqZuQ3CiiP63PMPKEy 4+ZRyayvDiLdqBBhTmRWUpn8FuMDq8DP2YKMFmROziEQ5RPWGffK1lDNvgCP1YAgRjJVGaKHVEMbEiB5 6dpVIcIUo3L8BiJhYqLSBpOllaYBGjXYtdHxDkLSOm WyBdDQogID4+ID4+OXdgMD8CGEgrspWhORBmRh0DGNBeIIG7MYHyiRKlMzVtCYRXEGsdSL8WfIQpRUK7 lP2zMHsmRNRhBZWrB8mYCsAjuRuvJM76tTcufaSgrTXvLWk+Yf9GAP3cp9FqRBz2kpIeLRpuSJUjJSdp ERPsEUPlPLDgZMZ2YYJ6QCSEDuJfBLAsBGWsCJxxBM IxLUCtmt8JWZRkHQXrAqT5LZNyRUWbGMCwKGguAQGuTBM6HzB4FLGkZULeWH8EIcIxXTTcFJFcMCCsMR HoMPIwha1ZSTJqYOYiLrI6MgOgSHDgJKRxKNzeMGMjGEGfANQgHDEuGTIrPX0AGnWwIWYvMLJ6YLNfDC JgLXEnxc0NRHNoBGYgBFP9ZOPsINFpNZQbDLomIANp VPT3JvC7IHSnTPAiHH8UCeJiXYTjAGO9LTLsUTNdULJxnt1ESAAxFIBmEuGcZPJuOGUpYWHmHPmeJJBf BFX0XRoxHRYjDSNvEF2EGeTxHWPkFHoxJNIhEEEmWFRbah5FMDZqGEIgFnI5YjJpOVXcEBEzGBzwACHn WLR1CuHcNKIxVWXwUB2ZLlSqRYXxKSj2SWFqSOScWW Dvph1CIHRbJTWmVLexByDpJMTtEUIbRLejCOMxTLM7OOD5GUWmLEEuCV3ABhIlZADaWGh9KkctTMSuON Ywmr6UNVFrPMFwQzq2BCJpDFQxVYMfMVliDSThDYN9AuJhWNGnAIOqVT9WZaPnKKaoCASSMtc5WNnmJ7 c3NNLyKe8BV6Pfd4YpCzLoAPGRITeyPE0lgzAhAEAt Pz1QH5mPOwrrUQViBEPrSnW9YbYuUEVyNIN8KTP4QhJbTLWhYqUkEU3aLGJ3XuUbCgTcCCaiKMN7TNL8 QMdqXYhuOXA6J5GkOYU6TxNpQD6WXf3GCgV0YNM0cFVkNk0RHLw3XFyWCnTuUE1LUKu= Procedure Social History Code Duration Value Status Description Data Source(s ) Smoking 09/25/2021 12:00:00 AM EST Patient has never smoked co mpleted Patient has never smoked MEDENT ([facility]) Smoking 09/03/2021 12:00:00 AM EDT Never Smoker completed Never S moker eCW1 ([facility]) Smoking 09/03/2021 12:00:00 AM EDT Never Smoker completed Never S moker eCW1 ([facility]) Smoking 09/03/2021 12:00:00 AM EDT Never Smoker completed Never S moker eCW1 ([facility]) Smoking 09/03/2021 12:00:00 AM EDT Never Smoker completed Never S moker eCW1 ([facility]) Alcohol intake 08/02/2021 12:00:00 AM EDT Current drinker of al cohol (finding) completed Current drinker of alcohol (finding) [facility] Smoking 05/10/2021 12:00:00 AM EDT Never Smoker completed Never S moker eCW1 ([facility]) Smoking 04/04/2021 12:00:00 AM EDT Never Smoker completed Never S moker eCW1 ([facility]) Smoking 03/07/2021 12:00:00 AM EDT Never Smoker completed Never S moker eCW1 ([facility]) Smoking 03/07/2021 12:00:00 AM EDT Never Smoker completed Never S moker eCW1 ([facility]) Smoking 03/07/2021 12:00:00 AM EDT Never Smoker completed Never S moker eCW1 ([facility]) Smoking 03/07/2021 12:00:00 AM EDT Never Smoker completed Never S moker eCW1 ([facility]) Smoking 02/03/2021 12:00:00 AM EDT Never Smoker completed Never S moker eCW1 ([facility]) Alcohol intake 01/25/2021 12:00:00 AM EDT Yes completed [facility] Smoking 01/25/2021 12:00:00 AM EDT Never smoker completed Never s moker [facility] Alcohol intake 10/26/2020 12:00:00 AM EST Yes completed [facility] Smoking 10/26/2020 12:00:00 AM EST Never smoker completed Never s moker [facility] Alcohol intake 09/26/2020 12:00:00 AM EST Yes completed [facility] Smoking 09/26/2020 12:00:00 AM EST Never smoker completed Never s moker [facility] Vital Signs ID Date Data Source UNK Name Value Range Interpretation Code Description Data Source(s) Body weight 92.988 kg 92.988 kg [facility] ([facility] Body weight 205.00 [lb_av] 205.00 [lb_av] MEDEN T ([facility]) Systolic blood pressure 145 mm[Hg] 145 mm[Hg] M EDENT ([facility]) Heart rate 70 /min 70 /min [facility] ([facility] Body mass index (BMI) [Ratio] 32.1 kg/m2 32.1 k g/m2 [facility] ([facility]) Body height 67 [in_i] 67 [in_i] [facility] ([facility]) 5'7" Body temperature 94.9 [degF] 94.9 [degF] [facility] ([facility]) Diastolic blood pressure 78 mm[Hg] 78 mm[Hg] [facility] ([facility]) Body weight 205.00 [lb_av] 205.00 [lb_av] MEDEN T ([facility]) Body height 67 [in_i] 67 [in_i] [facility] ([facility] 5'7" Body weight 92.988 kg 92.988 kg [facility] ([facility]) Systolic blood pressure 168 mm[Hg] 168 mm[Hg] M EDENT ([facility]) Diastolic blood pressure 89 mm[Hg] 89 mm[Hg] [facility] ([facility]) Body temperature 97.0 [degF] 97.0 [degF] [facility] ([facility]) Respiratory rate 18 /min 18 /min [facility] ( [facility]) Heart rate 70 /min 70 /min [facility] ([facility]) Oxygen saturation in Arterial blood by Pulse oximetry 95 % 95 % [facility] ([facility]) Body mass index (BMI) [Ratio] 32.1 kg/m2 32.1 k g/m2 [facility] ([facility]) Systolic blood pressure 158 mm[Hg] 158 mm[Hg] M EDENT ([facility]) Diastolic blood pressure 90 mm[Hg] 90 mm[Hg] [facility] ([facility]) Systolic blood pressure 158 mm[Hg] 158 mm[Hg] M EDENT ([facility]) Diastolic blood pressure 90 mm[Hg] 90 mm[Hg] [facility] ([facility]) Heart rate 78 /min 78 /min [facility] ([facility] Body temperature 96.0 [degF] 96.0 [degF] [facility] ([facility]) Body height 67 [in_i] 67 [in_i] [facility] ([facility] 5'7" Body weight 200.00 [lb_av] 200.00 [lb_av] MEDEN T ([facility]) Body weight 90.720 kg 90.720 kg [facility] ([facility] Body mass index (BMI) [Ratio] 31.3 kg/m2 31.3 k g/m2 [facility] ([facility]) Body height 66 [in_i] 66 [in_i] eCW1 ([facility]) Body weight 95.26 kg 95.26 kg eCW1 ([facility]) Body mass index (BMI) [Ratio] 33.89 kg/m2 33.89 kg/m2 eCW1 ([facility]) Heart rate 102 /min 102 /min eCW1 ([facility]) Respiratory rate 18 /min 18 /min eCW1 ([facility]) Body temperature 97.2 [degF] 97.2 [degF] eCW1 ( [facility]) Diastolic blood pressure 80 mm[Hg] 80 mm[Hg] eCW1 ([facility]) Body weight 210 [lb_av] 210 [lb_av] eCW1 ([facility]) Systolic blood pressure 134 mm[Hg] 134 mm[Hg] e CW1 ([facility]) Diastolic blood pressure 84 mm[Hg] 84 mm[Hg] [facility] Systolic blood pressure 138 mm[Hg] 138 mm[Hg] [facility] Heart rate 82 /min 82 /min [facility] Respiratory rate 18 /min 18 /min [facility] Body weight 92.987 kg 92.987 kg [facility] Body mass index (BMI) [Ratio] 32.11 kg/m2 32.11 kg/m2 [facility] Oxygen saturation in Arterial blood by Pulse oximetry 96 % 96 % [facility] Systolic blood pressure 132 mm[Hg] 132 mm[Hg] M EDENT ([facility]) Diastolic blood pressure 70 mm[Hg] 70 mm[Hg] MEDENT ([facility]) Body weight 200.00 [lb_av] 200.00 [lb_av] MEDEN T ([facility]) Body height 67 [in_i] 67 [in_i] [facility] ([facility]) 5'7" Body mass index (BMI) [Ratio] 31.3 kg/m2 31.3 k g/m2 [facility] ([facility]) Systolic blood pressure 132 mm[Hg] 132 mm[Hg] M EDENT ([facility]) Diastolic blood pressure 82 mm[Hg] 82 mm[Hg] [facility] ([facility]) Heart rate 68 /min 68 /min [facility] Respiratory rate 12 /min 12 /min [facility] ( [facility]) Heart rate 68 /min 68 /min [facility]) Respiratory rate 12 /min 12 /min [facility] ( [facility]) Systolic blood pressure 132 mm[Hg] 132 mm[Hg] M EDENT ([facility]) Diastolic blood pressure 86 mm[Hg] 86 mm[Hg] [facility] ([facility]) Body weight 200.00 [lb_av] 200.00 [lb_av] MEDEN T ([facility]) Respiratory rate 17 /min 17 /min [facility] ( [facility]) Body weight 195.00 [lb_av] 195.00 [lb_av] MEDEN T ([facility]) Diastolic blood pressure 76 mm[Hg] 76 mm[Hg] [facility] ([facility]) Respiratory rate 18 /min 18 /min [facility] ( [facility]) Systolic blood pressure 132 mm[Hg] 132 mm[Hg] M EDENT ([facility]) Body weight 202.6 [lb_av] 202.6 [lb_av] eCW1 ([facility]) Body height 66 [in_i] 66 [in_i] eCW1 ([facility]) Body mass index (BMI) [Ratio] 32.70 kg/m2 32.70 kg/m2 eCW1 ([facility]) Heart rate 97 /min 97 /min eCW1 ([facility]) Respiratory rate 18 /min 18 /min eCW1 ([facility]) Body temperature 98.3 [degF] 98.3 [degF] eCW1 ( [facility]) Systolic blood pressure 126 mm[Hg] 126 mm[Hg] e CW1 ([facility]) Diastolic blood pressure 84 mm[Hg] 84 mm[Hg] eCW1 ([facility]) Body weight 200.6 [lb_av] 200.6 [lb_av] eCW1 ([facility]) Body height 66 [in_i] 66 [in_i] eCW1 ([facility]) Body mass index (BMI) [Ratio] 32.37 kg/m2 32.37 kg/m2 eCW1 ([facility]) Heart rate 104 /min 104 /min eCW1 ([facility]) Respiratory rate 18 /min 18 /min eCW1 ([facility]) Body temperature 98.3 [degF] 98.3 [degF] eCW1 ( [facility]) Systolic blood pressure 138 mm[Hg] 138 mm[Hg] e CW1 ([facility]) Diastolic blood pressure 78 mm[Hg] 78 mm[Hg] eCW1 ([facility]) Body weight 200.2 [lb_av] 200.2 [lb_av] eCW1 ([facility]) Body height 66 [in_i] 66 [in_i] eCW1 ([facility]) Body mass index (BMI) [Ratio] 32.31 kg/m2 32.31 kg/m2 eCW1 ([facility]) Heart rate 94 /min 94 /min eCW1 ([facility]) Respiratory rate 18 /min 18 /min eCW1 ([facility]) Body temperature 97.5 [degF] 97.5 [degF] eCW1 ( [facility]) Systolic blood pressure 130 mm[Hg] 130 mm[Hg] e CW1 ([facility]) Diastolic blood pressure 74 mm[Hg] 74 mm[Hg] eCW1 ([facility]) Body weight 200 [lb_av] 200 [lb_av] eCW1 ([facility]) Body height 66 [in_i] 66 [in_i] eCW1 ([facility]) Body mass index (BMI) [Ratio] 32.28 kg/m2 32.28 kg/m2 eCW1 ([facility]) Heart rate 96 /min 96 /min eCW1 ([facility]) Respiratory rate 18 /min 18 /min eCW1 ([facility]) Body temperature 96.6 [degF] 96.6 [degF] eCW1 ( [facility]) Systolic blood pressure 142 mm[Hg] 142 mm[Hg] e CW1 ([facility]) Diastolic blood pressure 88 mm[Hg] 88 mm[Hg] eCW1 ([facility]) Systolic blood pressure 136 mm[Hg] 136 mm[Hg] [facility] Diastolic blood pressure 84 mm[Hg] 84 mm[Hg] [facility] Heart rate 95 /min 95 /min [facility] Respiratory rate 18 /min 18 /min [facility] Body height 170.2 cm 170.2 cm [facility] Body weight 90.719 kg 90.719 kg [facility] Body mass index (BMI) [Ratio] 31.32 kg/m2 31.32 kg/m2 [facility] Oxygen saturation in Arterial blood by Pulse oximetry 98 % 98 % [facility] Diastolic blood pressure 78 mm[Hg] 78 mm[Hg] [facility] Heart rate 85 /min 85 /min [facility] Systolic blood pressure 118 mm[Hg] 118 mm[Hg] [facility] Body height 170.2 cm 170.2 cm [facility] Body weight 95.255 kg 95.255 kg [facility] Body mass index (BMI) [Ratio] 32.89 kg/m2 32.89 kg/m2 [facility] Oxygen saturation in Arterial blood by Pulse oximetry 97 % 97 % [facility] Body height 170.2 cm 170.2 cm [facility] Systolic blood pressure 138 mm[Hg] 138 mm[Hg] [facility] Diastolic blood pressure 88 mm[Hg] 88 mm[Hg] [facility] Body weight 96.072 kg 96.072 kg [facility] Heart rate 88 /min 88 /min [facility] Body mass index (BMI) [Ratio] 33.17 kg/m2 33.17 kg/m2 [facility] Oxygen saturation in Arterial blood by Pulse oximetry 96 % 96 % [facility] Patient Treatment Plan of Care Planned Activity Planned Date Details Description Data Source (s) Prednisone 20 MG Oral Tablet 09/03/2021 12:00:00 AM EDT eCW1 ([facility]) Ondansetron 4 MG Oral Tablet 09/03/2021 12:00:00 AM EDT eCW1 ([facility]) Sumatriptan 100 MG Oral Tablet 09/03/2021 12:00:00 AM EDT eCW1 ([facility]) Prednisone 20 MG Oral Tablet 09/03/2021 12:00:00 AM EDT eCW1 ([facility]) Ondansetron 4 MG Oral Tablet 09/03/2021 12:00:00 AM EDT eCW1 ([facility]) Sumatriptan 100 MG Oral Tablet 09/03/2021 12:00:00 AM EDT eCW1 ([facility]) Prednisone 20 MG Oral Tablet 09/03/2021 12:00:00 AM EDT eCW1 ([facility]) Ondansetron 4 MG Oral Tablet 09/03/2021 12:00:00 AM EDT eCW1 ([facility]) Sumatriptan 100 MG Oral Tablet 09/03/2021 12:00:00 AM EDT eCW1 ([facility]) Prednisone 20 MG Oral Tablet 09/03/2021 12:00:00 AM EDT eCW1 ([facility]) Ondansetron 4 MG Oral Tablet 09/03/2021 12:00:00 AM EDT eCW1 ([facility]) Sumatriptan 100 MG Oral Tablet 09/03/2021 12:00:00 AM EDT eCW1 ([facility]) Ketoconazole 20 MG/ML Topical Cream 07/31/2021 12:00:00 AM EDT [facility] Cholestyramine Resin 66.7 MG/ML Oral Suspension 04/04/2021 12:00:00 AM EDT eCW1 ([facility]) Fluoxetine 40 MG Oral Capsule 11/04/2020 12:00:00 AM EST [facility] Hydrochlorothiazide 25 MG Oral Tablet 10/26/2020 12:00:00 AM EST [facility] Hydrochlorothiazide 25 MG Oral Tablet 10/26/2020 12:00:00 AM EST [facility] Hydrochlorothiazide 25 MG Oral Tablet 09/26/2020 12:00:00 AM EST [facility] Hydrocortisone 10 MG/ML Topical Cream 09/14/2020 12:00:00 AM EST [facility] valacyclovir 1000 MG Oral Tablet 07/19/2020 12:00:00 AM EDT [facility] Ibuprofen 800 MG Oral Tablet 06/21/2019 12:00:00 AM EDT [facility] Fluoxetine 20 MG Oral Capsule [facility] Multiple Minerals-Vitamins (CALCIUM & VIT D3 BONE HEALTH PO) [facility]
[2021-10-13] MEDS ORDERED: diphenhydrAMINE 50MG/ML VIAL (J1200) IV PRN (19:10)
[2021-10-13] MEDS ORDERED: NS 1,000 ML IV SCH (19:10)
[2021-10-13] MEDS ORDERED: ALBUTEROL 90 MCG/ACT 8GM HFA INHALER INH PRN (19:10)
[2021-10-13] MEDS ORDERED: diphenhydrAMINE 25MG CAP PO ONE (19:10)
[2021-10-13] MEDS ORDERED: methylPREDNISolone 125MG 2ML VIAL IV PRN (19:10)
[2021-10-13] MEDS ORDERED: ALBUTEROL SULFATE 2.5 MG/0.5 ML INH NEB SOLN INH PRN (19:10)
[2021-10-13] MEDS ORDERED: CASIRIVIMAB/IMDEVIMAB 1,200 MG in NS 250 ML IV ONE (19:10)
[2021-10-13] MEDS ORDERED: EPINEPHrine INJ 1 MG/ML 1ML AMP IM PRN (19:10)
[2021-10-13 20:30] VITALS: BP 144/72
== END 2021-10-13 21:29 | disposition home or self-care (01) ==
LOC: M ED 16:33
DX: U07.1 COVID-19 (principal); I25.10 Atherosclerotic heart disease of native coronary artery without angina pectoris; Z79.82 Long term (current) use of aspirin; Z79.899 Other long term (current) drug therapy; Z88.2 Allergy status to sulfonamides; Z88.6 Allergy status to analgesic agent; Z88.5 Allergy status to narcotic agent; Z88.8 Allergy status to other drugs, medicaments and biological substances
CPT/HCPCS: 80047; 96361; 96374; 99284; J2405

== ENCOUNTER 2021-10-14 10:51 | Outpatient (CLI) | payer MEDICARE, OTHER ==
--- NOTE | 2021-10-13 20:30 | HPEPDOC ---
General Date of Admission 10/13/21 Date of Service: Oct 13, 2021 Chief Complaint The patient is a 71-year-old female admitted with a reason for visit of . Source: Patient History of Present Illness Whitney Rizvi with PMH CAD, arthritis and GERD arrives with c/o worsening URI symptoms. Pt endorses s/s of cough, congestions, myalgias, malaise, fatigue, and nausea/ diarrhea past 5 days. She was diagnosed with COVID 3 days ago OP. As she had some exertional fatigue and felt no improvement decided to come in for pos sible treatment. Ambulation in ED without desaturation. Patient SPO2 98% on room air and has not been less than 92% when ambulating. Pt normotensive, not tachycardic or tachypneic. Pt endorses interest in MAB and consented for infusion. Home Medications Scheduled Aspirin (Aspir 81) 81 Mg Tablet.dr, 81 MG PO DAILY for pain, (Reported) Atorvastatin Calcium (Lipitor) 20 Mg Tablet, 40 MG PO DAILY, (Reported) Calcium Carb/Vit D3/Minerals (Calcium 600+D Plus Minerals Tb) 1 Each Tablet, 1 TAB PO DAILY, (Reported) Fluoxetine HCl (Prozac) 40 Mg Capsule, 40 MG PO DAILY, (Reported) Multivitamin (Multivitamins) 1 Each Capsule, 1 CAP PO DAILY, (Reported) Pantoprazole Sodium (Protonix) 40 Mg Granpkt.dr, 40 MG PO DAILY, (Reported) Pramipexole Di-HCl (Mirapex) 0.25 Mg Tablet, 0.25 MG PO QPM, (Reported) Allergies Coded Allergies: Sulfa (Sulfonamide Antibiotics) (Verified Allergy, Unknown, RASH, 02/23/19) pregabalin (Verified Allergy, Unknown, HOT,SWOLLEN, 02/23/19) acetaminophen (Verified Adverse Reaction, Unknown, HYPERACTIVITY, 02/23/19) celecoxib (Verified Adverse Reaction, Unknown, SOB, 02/23/19) hydrocodone (Verified Adverse Reaction, Unknown, HYPERACTIVITY, 02/23/19) Past Medical History Medical History GERD, CAD, hiatal hernia, history of abnormal uterine bleeding, arthritis, hyperlipidemia and hypertension Surgical History Hysterectomy, bilateral foot surgery, back surgery, cyst removal, cardiac cath and heart stents x1 Family History Significant Family History: Heart disease Social History * Smoker: Denies Alcohol: Denies Recent Travel/Sick Contacts: Denies: Recent travel, Recent sick contacts Psychosocial History: No pertinent psych hx Pt has gotten 2/2 Covid vaccine; was to get her booster tomorrow originally scheduled. A-FIB/CHADSVASC A-FIB History Current/History of A-Fib/PAF?: No Current PO Anticoag Therapy: No Review of Systems Constitutional: Reports: Fever, Malaise, Fatigue; Denies: Chills, Night Sweats Eyes: Denies: Pain, Vision change ENT: Denies: Head Aches, Ear Pain, Dysphagia Skin: Denies: Rash, Lesions, Breakdown Pulmonary: Reports: Dyspnea, Cough Cardiovascular: Denies: Chest Pain, Palpitations, Orthopnea, Paroxysmal Noc. Dyspnea, Lt Headedness Gastrointestinal: Reports: Nausea, Diarrhea; Denies: Vomiting, Abdominal Pain Genitourinary: Denies: Dysuria, Frequency, Incontinence, Retention Hematologic: Denies: Bruising, Bleeding Excessively Musculoskeletal: Denies: Neck Pain, Back Pain, Joint Pain, Muscle Pain, Spasms Neurological: Denies: Weakness, Numbness, Change in speech, Confusion Psych: Reports: Mood Normal; Denies: Depression, Memory Issues Physical Examination General Exam: Positive: Alert, Cooperative, No Acute Distress, Other (ILL APPEARANCE) Eye Exam: Positive: PERRLA, Conjunctiva & lids normal, EOMI; Negative: Sclera icteric ENT Exam: Positive: Atraumatic, Mucous membr. moist/pink, Pharynx Normal Neck Exam: Positive: Supple; Negative: JVD, thyromegaly Chest Exam: Positive: Rales Heart Exam: Positive: Rate Normal, Regular Rhythm, Normal S1, Normal S2; Negative: Murmurs, Rubs Telemetry: Positive: No significant arrhythmia Abdomen Exam: Positive: Normal bowel sounds, Soft; Negative: Tenderness, Hepatospenomegaly Extremity Exam: Positive: Normal pulses; Negative: Clubbing, Cyanosis, Edema Skin Exam: Positive: Nl turgor and temperature; Negative: Breakdown, Lesion Neuro Exam: Positive: Normal Gait, Normal Speech, Cranial Nerves 3-12 NL, Reflexes 2+ Psych Exam: Positive: Mental status NL, Mood NL, Oriented x 3 Vital Signs T 98.7 Fahrenheit, heart rate 89, respiratory rate 18, 147/80, SPO2 room air 98% Assessment/Plan #COVID+: Worsening s/s, not requiring O2. -Monitor pt, respiratory status. -Premedications Benadryl -Monoclonal antibody infusion per protocol -PRN solumedrol/ albuterol/ benadryl if pt with reactivity -Discharge with written instructions for home monitoring once infusion complete per protocol #Chronic conditions: Continue medications per baseline parameters. F/u with PCP DVT Px: Early Ambulation CODE Status: FULL Dispo: Home per post infusion policy guidelines Plan / VTE VTE Prophylaxis Ordered?: Yes FRANSISCO AGUDELO NP Oct 13, 2021 19:28
[~2021-10-14] VITALS: Ht 170.2 cm; Wt 90.7 kg
[~2021-10-14 10:51] MED LIST changes: +ALBUTEROL 90 MCG/ACT 8GM HFA INHALER INH PRN; +ALBUTEROL SULFATE 2.5 MG/0.5 ML INH NEB SOLN INH PRN; +CASIRIVIMAB (REGN10933) 600 MG, IMDEVIMAB (REGN10987) 600 MG in NS 250 ML IV ONE; +CASIRIVIMAB/IMDEVIMAB 1,200 MG in NS 250 ML IV ONE; +EPINEPHrine INJ 1 MG/ML 1ML AMP IM PRN; +NS 1,000 ML IV SCH; +diphenhydrAMINE 25MG CAP PO ONE; +diphenhydrAMINE 50MG/ML VIAL (J1200) IV PRN; +methylPREDNISolone 125MG 2ML VIAL IV PRN
[2021-10-14 11:14] VITALS: BP 150/71
[2021-10-14 11:44] VITALS: BP 137/67
[2021-10-14 12:14] VITALS: BP 135/71
[2021-10-14 13:14] VITALS: BP 149/77
== END 2021-10-14 13:14 | disposition home or self-care (01) ==
LOC: M OPCLI4PR 10:51
PROVIDERS: ATTEND Family Medicine
DX: U07.1 COVID-19 (principal); Z88.2 Allergy status to sulfonamides; Z88.6 Allergy status to analgesic agent; Z88.8 Allergy status to other drugs, medicaments and biological substances

== ENCOUNTER → 2022-02-04 | Outpatient (CLI) | payer MEDICARE, OTHER ==
[~2022-02-04] MED LIST changes: -ALBUTEROL 90 MCG/ACT 8GM HFA INHALER INH PRN; -ALBUTEROL SULFATE 2.5 MG/0.5 ML INH NEB SOLN INH PRN; -CASIRIVIMAB (REGN10933) 600 MG, IMDEVIMAB (REGN10987) 600 MG in NS 250 ML IV ONE; -CASIRIVIMAB/IMDEVIMAB 1,200 MG in NS 250 ML IV ONE; -EPINEPHrine INJ 1 MG/ML 1ML AMP IM PRN; -NS 1,000 ML IV SCH; -diphenhydrAMINE 25MG CAP PO ONE; -diphenhydrAMINE 50MG/ML VIAL (J1200) IV PRN; -methylPREDNISolone 125MG 2ML VIAL IV PRN
== END ==
LOC: M ADAMS 10:37
PROVIDERS: ATTEND Family Medicine
DX: R68.89 Other general symptoms and signs (principal)

== ENCOUNTER → 2022-02-04 | Outpatient (REF) | payer MEDICARE, OTHER ==
[2022-02-04 12:48] LABS: BASO % 0.5 % (0.0-1.0); EOS # 0.2 10^3/uL (0.0-0.5); EOS % 2.6 % (0.0-3.0); HEMATOCRIT 40.2 % (36.0-47.0); HEMOGLOBIN 13.6 g/dl (12.0-15.5); LYMPH % 31.3 % (24.0-44.0); MEAN CORPUSCULAR HEMOGLOBIN 31.6 pg (27.0-33.0); MEAN CORPUSCULAR HGB CONC 33.8 g/dl (32.0-36.5); MEAN CORPUSCULAR VOLUME 93.3 fl (80.0-96.0); MONO # 0.4 10^3/uL (0.0-0.8); MONO % 6.8 % (2.0-8.0); NEUTROPHILS # 3.8 10^3/uL (1.5-8.5); NEUTROPHILS % 58.6 % (36.0-66.0); PLATELET COUNT, AUTOMATED 214 10^3/uL (150-450); RED BLOOD COUNT 4.31 10^6/uL (4.00-5.40); WHITE BLOOD COUNT 6.5 10^3/uL (4.0-10.0)
[2022-02-04 13:49] LABS: ALBUMIN 3.8 GM/DL (3.2-5.2); BILIRUBIN,TOTAL 0.8 MG/DL (0.2-1.0); CALCIUM LEVEL 8.9 MG/DL (8.8-10.2); CREATININE FOR GFR 0.99 MG/DL (0.55-1.30); FREE T4 0.95 NG/DL (0.76-1.46); GLOMERULAR FILTRATION RATE 58.9 (>39); POTASSIUM SERUM 4.7 MEQ/L (3.5-5.1); THYROID STIMULATING HORMONE 2.2 uIU/ML (0.358-3.740); TOTAL PROTEIN 6.8 GM/DL (6.4-8.2)
== END ==
LOC: M SFHCADAM 09:48
PROVIDERS: ATTEND Family Medicine
DX: R68.89 Other general symptoms and signs (principal)

== ENCOUNTER → 2022-02-07 | Outpatient (REF) | payer MEDICARE, OTHER ==
[2022-02-07 17:20] LABS: BLOOD UREA NITROGEN 15 MG/DL (7-18); CALCIUM LEVEL 9.3 MG/DL (8.8-10.2); CARBON DIOXIDE LEVEL 30 MEQ/L (21-32); CHLORIDE LEVEL 108 MEQ/L (98-107); CREATININE FOR GFR 0.88 MG/DL (0.55-1.30); GLOMERULAR FILTRATION RATE > 60.0 (>39); GLUCOSE, FASTING 72 MG/DL (70-100); POTASSIUM SERUM 4.1 MEQ/L (3.5-5.1); SODIUM LEVEL 140 MEQ/L (136-145)
== END ==
LOC: M SFHCADAM 14:25
PROVIDERS: ATTEND Family Medicine
DX: R06.00 Dyspnea, unspecified (principal)

== ENCOUNTER → 2022-02-13 | Outpatient (CLI) | payer MEDICARE, OTHER ==
[~2022-02-13] MED LIST changes: +ISOVUE-370 76% 100ML VIAL As Ordered ONE
== END ==
LOC: M RAD 08:50
PROVIDERS: ATTEND Family Medicine
DX: R06.00 Dyspnea, unspecified (principal); K44.9 Diaphragmatic hernia without obstruction or gangrene; J84.10 Pulmonary fibrosis, unspecified; J94.8 Other specified pleural conditions
CPT/HCPCS: 71260; Q9967

== ENCOUNTER → 2022-02-28 | Outpatient (CLI) | payer MEDICARE, OTHER ==
[~2022-02-28] MED LIST changes: -ISOVUE-370 76% 100ML VIAL As Ordered ONE
== END ==
LOC: M CARPUL 11:26
PROVIDERS: ATTEND Family Medicine
DX: R06.00 Dyspnea, unspecified (principal); I08.3 Combined rheumatic disorders of mitral, aortic and tricuspid valves

== ENCOUNTER → 2022-09-15 | Outpatient (REF) | payer MEDICARE, OTHER ==
[2022-09-15 15:10] LABS: CHOLESTEROL RISK RATIO 2.23 (<5)
== END ==
LOC: M LABDRWAD 12:36
PROVIDERS: ATTEND Nurse Practitioner Family
DX: E78.5 Hyperlipidemia, unspecified (principal)

== ENCOUNTER → 2023-01-05 | Outpatient (REF) | payer MEDICARE, OTHER ==
[2023-01-05 13:55] LABS: BASO % 0.4 % (0.0-1.0); EOS # 0.2 10^3/uL (0.0-0.5); EOS % 1.9 % (0.0-3.0); HEMATOCRIT 40.7 % (36.0-47.0); HEMOGLOBIN 13.7 g/dl (12.0-15.5); LYMPH # 2.3 10^3/uL (1.5-5.0); LYMPH % 26.7 % (24.0-44.0); MEAN CORPUSCULAR HEMOGLOBIN 32.8 pg (27.0-33.0); MEAN CORPUSCULAR HGB CONC 33.7 g/dl (32.0-36.5); MEAN CORPUSCULAR VOLUME 97.4 fl (80.0-96.0); MONO # 0.6 10^3/uL (0.0-0.8); MONO % 6.5 % (2.0-8.0); NEUTROPHILS # 5.5 10^3/uL (1.5-8.5); NEUTROPHILS % 64.3 % (36.0-66.0); PLATELET COUNT, AUTOMATED 228 10^3/uL (150-450); RED BLOOD COUNT 4.18 10^6/uL (4.00-5.40); WHITE BLOOD COUNT 8.6 10^3/uL (4.0-10.0)
[2023-01-05 14:14] LABS: ALBUMIN 3.8 G/DL (3.2-5.2); ALKALINE PHOSPHATASE 80 U/L (46-116); ALT/SGPT 34 U/L (7.0-40); AST/SGOT 26 U/L (<34); BILIRUBIN,TOTAL 0.9 MG/DL (0.3-1.2); BLOOD UREA NITROGEN 14 MG/DL (9-23); CALCIUM LEVEL 8.6 MG/DL (8.3-10.6); CARBON DIOXIDE LEVEL 28 MMOL/L (20-31); CHLORIDE LEVEL 106 MMOL/L (98-107); CHOLESTEROL LEVEL 106 MG/DL (<200); CHOLESTEROL RISK RATIO 2.41 (<5); CREATININE FOR GFR 0.85 MG/DL (0.55-1.30); GLOMERULAR FILTRATION RATE > 60.0 (>39); GLUCOSE, FASTING 110 MG/DL (74-106); HDL CHOLESTEROL 43.9 MG/DL (>40); LDL CHOLESTEROL 36.9 MG/DL (<100); NON-HDL-C 62 MG/DL; POTASSIUM SERUM 4.7 MMOL/L (3.5-5.1); SODIUM LEVEL 142 MMOL/L (136-145); TOTAL PROTEIN 6.8 G/DL (5.7-8.2); TRIGLYCERIDES LEVEL 126 MG/DL (<150)
== END ==
LOC: M SFHCADAM 09:23
PROVIDERS: ATTEND Family Medicine
DX: Z00.00 Encounter for general adult medical examination without abnormal findings (principal)

== ENCOUNTER → 2023-04-20 | Outpatient (REF) | payer MEDICARE, OTHER | LOC: M SFHCADAM 13:41 | PROVIDERS: ATTEND Physician Assistant | DX: R19.7 Diarrhea, unspecified (principal); Z53.8 Procedure and treatment not carried out for other reasons ==

== ENCOUNTER 2023-07-23 09:33 | Day surgery (SDC) | payer MEDICARE, OTHER ==
[~2023-07-23] VITALS: Ht 167.6 cm; Wt 96.6 kg
[~2023-07-23 09:33] MED LIST changes: +ASPI81TA26 PO; +ATOR40TA75 PO; +BSS IRRIG/VANCO(10MG)/TOBRA(5MG)/EPINEPH(1:1000-0.5CC)500ML BAG-ORONLY IR ONE; +CEFUROXIME 1MG/0.1ML INTRACAMERAL INJ As Ordered ONE; +CYCLOPENTOLATE 1% OPHTH SOLN 2ML BTL OD SCH; +FAMO1TAB11 PO; +GLYC1TAB18 PO; +LIDOCAINE 1% SDV 5ML VIAL As Ordered ONE; +LIDOCAINE 3.5 % 1ML OPHTH TOPICAL GEL OU ONE; +OFLOXACIN 0.3 % (OCUFLOX) OPTH SOL 5ML OD ONE; +PHENYLEPHRINE 10% OPHTH SOL 5ML OD PRN; +PHENYLEPHRINE 2.5% OPHTH SOL 2ML OD SCH; +THERTAB52 PO; +TROPICAMIDE 1% OPHTH SOLN 15ML OD SCH; +VALA500T5 PO
[2023-07-23] MEDS ORDERED: fentaNYL 100 MCG/2 ML INJECTION As Ordered ONE (11:12)
[2023-07-23] MEDS ORDERED: MIDAZOLAM INJ 2MG/2ML VIAL As Ordered ONE (11:12)
[2023-07-23 12:48] VITALS: BP 173/93; TEMP 97.1; O2SAT 95
== END 2023-07-23 12:40 | disposition home or self-care (01) ==
LOC: M SDC 09:33
PROVIDERS: ATTEND Ophthalmology
DX: H25.11 Age-related nuclear cataract, right eye (principal); E78.00 Pure hypercholesterolemia, unspecified; I10 Essential (primary) hypertension; I25.10 Atherosclerotic heart disease of native coronary artery without angina pectoris; Z79.82 Long term (current) use of aspirin; Z95.5 Presence of coronary angioplasty implant and graft; Z79.899 Other long term (current) drug therapy; Z88.2 Allergy status to sulfonamides; Z88.8 Allergy status to other drugs, medicaments and biological substances; Z88.5 Allergy status to narcotic agent
CPT/HCPCS: 66984; J0697; J2250; J3010; V2632

== ENCOUNTER 2023-07-31 08:31 | Day surgery (SDC) | payer MEDICARE, OTHER ==
[~2023-07-31] VITALS: Ht 170.2 cm; Wt 95.3 kg
[~2023-07-31 08:31] MED LIST changes: -BSS IRRIG/VANCO(10MG)/TOBRA(5MG)/EPINEPH(1:1000-0.5CC)500ML BAG-ORONLY IR ONE; -CEFUROXIME 1MG/0.1ML INTRACAMERAL INJ As Ordered ONE; -CYCLOPENTOLATE 1% OPHTH SOLN 2ML BTL OD SCH; -LIDOCAINE 1% SDV 5ML VIAL As Ordered ONE; -LIDOCAINE 3.5 % 1ML OPHTH TOPICAL GEL OU ONE; +NS 1,000 ML IV ONE; -OFLOXACIN 0.3 % (OCUFLOX) OPTH SOL 5ML OD ONE; -PHENYLEPHRINE 10% OPHTH SOL 5ML OD PRN; -PHENYLEPHRINE 2.5% OPHTH SOL 2ML OD SCH; -TROPICAMIDE 1% OPHTH SOLN 15ML OD SCH
[2023-07-31] MEDS ORDERED: LIDOCAINE 2% 100MG/5ML SDV (FOR ANES.) As Ordered ONE (09:44)
[2023-07-31] MEDS ORDERED: propofoL 200 MG/20 ML VIAL As Ordered ONE (09:44)
[2023-07-31 10:01] VITALS: TEMP 96.3
[2023-07-31 10:18] VITALS: BP 149/77; O2SAT 97
== END 2023-07-31 10:32 | disposition home or self-care (01) ==
LOC: M OPP 08:31
PROVIDERS: ATTEND Internal Medicine Gastroenterology
DX: R10.13 Epigastric pain (principal); K31.7 Polyp of stomach and duodenum; I25.10 Atherosclerotic heart disease of native coronary artery without angina pectoris; K21.9 Gastro-esophageal reflux disease without esophagitis; E78.5 Hyperlipidemia, unspecified; Z88.2 Allergy status to sulfonamides; Z88.5 Allergy status to narcotic agent; Z88.8 Allergy status to other drugs, medicaments and biological substances

== ENCOUNTER → 2023-09-10 | Outpatient (CLI) | payer MEDICARE, OTHER ==
[~2023-09-10] MED LIST changes: -NS 1,000 ML IV ONE
== END ==
LOC: M WHC 11:39
PROVIDERS: ATTEND Physician Assistant Medical
DX: E04.2 Nontoxic multinodular goiter (principal)

== ENCOUNTER → 2024-02-04 | Outpatient (CLI) | payer MEDICARE, OTHER ==
[~2024-02-04] MED LIST changes: +ONDA4TAB6 PO
== END ==
LOC: M WHC 15:11
PROVIDERS: ATTEND Physician Assistant Medical
DX: Z12.31 Encounter for screening mammogram for malignant neoplasm of breast (principal); Z78.0 Asymptomatic menopausal state; M85.89 Other specified disorders of bone density and structure, multiple sites; R92.323 Mammographic fibroglandular density, bilateral breasts

== ENCOUNTER → 2024-02-24 | Outpatient (REF) | payer MEDICARE, OTHER ==
[2024-02-24 18:44] LABS: ALBUMIN 3.9 G/DL (3.2-5.2); ALKALINE PHOSPHATASE 67 U/L (46-116); ALT/SGPT 51 U/L (7.0-40); AST/SGOT 33 U/L (<34); BASO % 0.3 % (0.0-1.0); BILIRUBIN,TOTAL 0.9 MG/DL (0.3-1.2); BLOOD UREA NITROGEN 12 MG/DL (9-23); CALCIUM LEVEL 9.1 MG/DL (8.3-10.6); CARBON DIOXIDE LEVEL 28 MMOL/L (20-31); CHLORIDE LEVEL 105 MMOL/L (98-107); CHOLESTEROL LEVEL 92 MG/DL (<200); CHOLESTEROL RISK RATIO 2.91 (<5); CREATININE FOR GFR 0.81 MG/DL (0.55-1.30); EOS # 0.1 10^3/uL (0.0-0.5); EOS % 1.1 % (0.0-3.0); GLOMERULAR FILTRATION RATE > 60.0 (>39); GLUCOSE, FASTING 108 MG/DL (74-106); HDL CHOLESTEROL 31.6 MG/DL (>40); HEMATOCRIT 41.7 % (36.0-47.0); HEMOGLOBIN 14.1 g/dl (12.0-15.5); LDL CHOLESTEROL 33.8 MG/DL (<100); LYMPH # 1.9 10^3/uL (1.5-5.0); LYMPH % 31.3 % (24.0-44.0); MEAN CORPUSCULAR HEMOGLOBIN 32.1 pg (27.0-33.0); MEAN CORPUSCULAR HGB CONC 33.8 g/dl (32.0-36.5); MONO # 0.3 10^3/uL (0.0-0.8); MONO % 5.2 % (2.0-8.0); NEUTROPHILS # 3.8 10^3/uL (1.5-8.5); NEUTROPHILS % 61.9 % (36.0-66.0); NON-HDL-C 60.4 MG/DL; PLATELET COUNT, AUTOMATED 205 10^3/uL (150-450); POTASSIUM SERUM 4.1 MMOL/L (3.5-5.1); RED BLOOD COUNT 4.39 10^6/uL (4.00-5.40); SODIUM LEVEL 135 MMOL/L (136-145); TOTAL PROTEIN 6.8 G/DL (5.7-8.2); TRIGLYCERIDES LEVEL 133 MG/DL (<150); WHITE BLOOD COUNT 6.2 10^3/uL (4.0-10.0)
[2024-02-24 18:46] LABS: THYROID STIMULATING HORMONE 2.719 uIU/ML (0.55-4.78); TOTAL 25(OH) VITAMIN D 65.5 NG/ML (20.0-100.0)
[2024-02-24 19:37] LABS: HEMOGLOBIN A1c 6.1 % (4.0-6.0)
== END ==
LOC: M SFHCADAM 14:18
PROVIDERS: ATTEND Physician Assistant Medical
DX: I25.10 Atherosclerotic heart disease of native coronary artery without angina pectoris (principal); Z12.39 Encounter for other screening for malignant neoplasm of breast; E55.9 Vitamin D deficiency, unspecified; Z78.0 Asymptomatic menopausal state; I50.32 Chronic diastolic (congestive) heart failure; R73.01 Impaired fasting glucose

== ENCOUNTER → 2024-03-10 | Outpatient (CLI) | payer MEDICARE, OTHER | LOC: M ADAMS 11:56 | PROVIDERS: ATTEND Physician Assistant Medical | DX: J18.9 Pneumonia, unspecified organism (principal) ==

== ENCOUNTER → 2024-05-16 | Outpatient (CLI) | payer MEDICARE, OTHER ==
[~2024-05-16] MED LIST changes: +ONDA-282 PO; -ONDA4TAB6 PO
== END ==
LOC: M SLEEP 20:00
PROVIDERS: ATTEND Nurse Practitioner Family
DX: G47.33 Obstructive sleep apnea (adult) (pediatric) (principal); R40.0 Somnolence

== ENCOUNTER → 2024-10-11 | Outpatient (REF) | payer MEDICARE, OTHER ==
[2024-10-11 18:47] LABS: BLOOD UREA NITROGEN 11 MG/DL (9-23); CALCIUM LEVEL 9.9 MG/DL (8.3-10.6); CARBON DIOXIDE LEVEL 29 MMOL/L (20-31); CHLORIDE LEVEL 103 MMOL/L (98-107); CREATININE FOR GFR 0.79 MG/DL (0.55-1.30); GLOMERULAR FILTRATION RATE > 60.0 (>39); GLUCOSE, FASTING 126 MG/DL (74-106); POTASSIUM SERUM 4.9 MMOL/L (3.5-5.1); SODIUM LEVEL 141 MMOL/L (136-145)
== END ==
LOC: M LABDRWAD 17:46
PROVIDERS: ATTEND Internal Medicine Cardiovascular Disease
DX: I10 Essential (primary) hypertension (principal)

== ENCOUNTER → 2024-10-11 | Outpatient (CLI) | payer MEDICARE, OTHER | LOC: M RAD 14:58 | PROVIDERS: ATTEND Physician Assistant Medical | DX: E04.1 Nontoxic single thyroid nodule (principal); I10 Essential (primary) hypertension ==

== ENCOUNTER → 2024-10-18 | Outpatient (CLI) | payer MEDICARE, OTHER | LOC: M SLEEP 20:00 | PROVIDERS: ATTEND Physician Assistant | DX: G47.33 Obstructive sleep apnea (adult) (pediatric) (principal) ==

== ENCOUNTER → 2025-02-17 | Outpatient (REF) | payer MEDICARE, OTHER ==
[2025-02-17 19:03] LABS: BASO % 0.3 % (0.0-1.0); EOS # 0.3 10^3/uL (0.0-0.5); EOS % 4.2 % (0.0-3.0); HEMOGLOBIN 13.7 g/dl (12.0-15.5); LYMPH # 1.7 10^3/uL (1.5-5.0); LYMPH % 28.4 % (24.0-44.0); MEAN CORPUSCULAR HEMOGLOBIN 31.4 pg (27.0-33.0); MEAN CORPUSCULAR HGB CONC 32.6 g/dl (32.0-36.5); MEAN CORPUSCULAR VOLUME 96.1 fl (80.0-96.0); MONO # 0.5 10^3/uL (0.0-0.8); MONO % 8.2 % (2.0-8.0); NEUTROPHILS # 3.5 10^3/uL (1.5-8.5); NEUTROPHILS % 58.7 % (36.0-66.0); PLATELET COUNT, AUTOMATED 219 10^3/uL (150-450); RED BLOOD COUNT 4.37 10^6/uL (4.00-5.40)
[2025-02-17 19:12] LABS: HEMOGLOBIN A1c 6.1 % (4.0-6.0)
[2025-02-17 19:25] LABS: FREE T4 1.09 NG/DL (0.89-1.76); THYROID STIMULATING HORMONE 2.173 uIU/ML (0.55-4.78)
[2025-02-17 19:27] LABS: BILIRUBIN,TOTAL 0.8 MG/DL (0.3-1.2); CALCIUM LEVEL 9.3 MG/DL (8.3-10.6); CHOLESTEROL RISK RATIO 2.4 (<5); CREATININE FOR GFR 0.84 MG/DL (0.55-1.30); GLOMERULAR FILTRATION RATE 72.9 (>39); HDL CHOLESTEROL 50.7 MG/DL (>40); LDL CHOLESTEROL 49.1 MG/DL (<100); NON-HDL-C 71.3 MG/DL; POTASSIUM SERUM 4.7 MMOL/L (3.5-5.1); TOTAL PROTEIN 6.9 G/DL (5.7-8.2)
[2025-02-17 19:28] LABS: TOTAL 25(OH) VITAMIN D 47.8 NG/ML (20.0-100.0)
== END ==
LOC: M SFHCADAM 11:29
PROVIDERS: ATTEND Physician Assistant Medical
DX: E55.9 Vitamin D deficiency, unspecified (principal); R73.03 Prediabetes; K21.9 Gastro-esophageal reflux disease without esophagitis; E66.01 Morbid (severe) obesity due to excess calories

== ENCOUNTER → 2025-03-10 | Outpatient (CLI) | payer MEDICARE, OTHER | LOC: M WHC 13:12 | PROVIDERS: ATTEND Physician Assistant Medical | DX: Z12.31 Encounter for screening mammogram for malignant neoplasm of breast (principal) ==

== ENCOUNTER → 2025-08-16 | Outpatient (REF) | payer MEDICARE, OTHER ==
[2025-08-16 19:12] LABS: ALT/SGPT 20.0 U/L (7.0-40); AST/SGOT 19.0 U/L (<34); CALCIUM LEVEL 9.2 MG/DL (8.3-10.6); CARBON DIOXIDE LEVEL 27.0 MMOL/L (20-31); CHLORIDE LEVEL 102.0 MMOL/L (98-107); CHOLESTEROL LEVEL 112.0 MG/DL (<200); CHOLESTEROL RISK RATIO 2.41 (<5); CREATININE FOR GFR 0.9 MG/DL (0.55-1.30); GLOMERULAR FILTRATION RATE 66.7 (>39); LDL CHOLESTEROL 32.6 MG/DL (<100); NON-HDL-C 65.6 MG/DL; POTASSIUM SERUM 4.1 MMOL/L (3.5-5.1); SODIUM LEVEL 141.0 MMOL/L (136-145); TOTAL 25(OH) VITAMIN D 51.0 NG/ML (20.0-100.0); TRIGLYCERIDES LEVEL 165.0 MG/DL (<150)
[2025-08-16 19:13] LABS: FREE T4 1.31 NG/DL (0.89-1.76)
[2025-08-16 19:34] LABS: ESTIMATED AVERAGE GLUCOSE 111.0 MG/DL (60-110)
== END ==
LOC: M SFHCADAM 14:25
PROVIDERS: ATTEND Physician Assistant Medical
DX: E55.9 Vitamin D deficiency, unspecified (principal); R73.03 Prediabetes; K21.9 Gastro-esophageal reflux disease without esophagitis; E66.01 Morbid (severe) obesity due to excess calories